=== PATIENT | female | born 1980 | race Caucasian/White ===

== ENCOUNTER 2016-10-25 15:51 | Inpatient (IN) | payer SELFPAY ==
[2016-10-25] MEDS ORDERED: ALPRAZolam 0.5 MG TAB PO ONE (16:54)
--- NOTE | 2016-10-25 16:56 | EDPHY ---
H & P Time Seen by Provider: 10/25/16 16:40 HPI/ROS: HPI: 36-year-old female presents to emergency department voluntarily with chief concern anxiety, stress because her mother called the police department on her. She had not seen her daughter in 4 days. She has her mother to watch her daughter for the past 4 days because she was going through a "spiritual awakening" and she was needing to "clear negative energy from her home." Mother was concerned about her because her house is in a state of disrepair and she has not slept or eaten much for the past 4 days. Her past medical history is notable for ADD only. She denies suicidal homicidal ideation. She denies visual or auditory hallucination. She denies illicit drug or alcohol abuse. No fever, chills, head injury, URI symptoms, shortness of breath, chest pain, abdominal pain, nausea, vomiting, diarrhea. ROS:10 point review of systems is negative other than as stated in HPI Past Medical/Surgical History: ADD Social History: Lives in [place] with her daughter Smoking Status: Current every day smoker Physical Exam: Vital signs stable, reviewed by me General: Awake, alert, calm, cooperative. No acute distress. Head: Normalocephalic. Atraumatic. EENT: PERRLA. EOMI. No pallor or injection. Anicteric. No nystagmus. No injection. TMs intact bilaterally with normal landmarks. No rhinnorhea, nasal passages clear. Oropharynx without redness, exudates, or lesions. Tonsils 2+ bilaterally, no exudates. Neck: Supple, nontender. No lymphadenopathy. Full range of motion. No meningismus. Respiratory: Breathing unlabored. Breath sounds equal bilaterally and clear to auscultation. No adventitious sounds. CV: Chest nontender, atraumatic. Heart rate regular. No murmur, distal pulses 2+ bilaterally. Brisk cap refill all extremities. GI: Abdomen soft, nontender. Bowel sounds normoactive and positive x4 quadrants. : No CVA or flank tenderness. Neuro: Alert. Oriented x 3. Speech clear. Nonfocal cranial nerves throughout. Sensation intact all extremities. Skin: Skin warm, dry, intact. No rashes, abrasions, or lacerations. Skin turgor normal. Extremities: Full range of motion in all 4 extremities. Strength 5+ all extremities. Constitutional: Initial Vital Signs Temperature (C) 36.4 C 10/25/16 15:56 Heart Rate 95 10/25/16 15:56 Respiratory Rate 18 10/25/16 15:56 Blood Pressure 103/75 10/25/16 15:56 O2 Sat (%) 97 10/25/16 15:56 O2 Delivery Mode Room Air Allergies/Adverse Reactions: No Known Allergies Allergy (Verified 10/25/16 15:55) Home Medications: Medication Instructions Recorded Adderall 10 mg Tablet 11/28/15 Medical Decision Making ED Course/Re-evaluation: 1630:36-year-old female brought in voluntarily by PD with chief concern anxiety , stress. Her mother believe she is delusional. She has been unable to take care of her daughter over the past 4 days. She is not a danger to herself or others. She has no visual or auditory hallucinations. She denies abusing drugs or alcohol. I have bargained with she and her mother that if she will leave the emergency department and follow up directly at [facility] , as well as a follow up with primary care tomorrow, she will be discharged. She agrees to this plan. 1710: Adeola from EPS in to evaluate patient and ultimately she is placed on M1 hold at 5:23 p.m.. Her behavior has escalated. She is given 10 mg IM a Zyprexa and 5 mg p.o. Haldol. 1810: Medically cleared. Drug tox positive for cocaine. 1848: Care of this patient transferred to my colleague Dr. Alfred Patterson. Patient has been medically cleared. She has a bed on [address] [place] [address]. Awaiting transfer. Differential Diagnosis: Differential includes but is not limited to functional and major depression, situational depression, medication side-effect, anxiety, schizophrenia, bipolar , drug or alcohol related, acute psychosis, metabolic derangement, infection - Data Points Laboratory Results: Laboratory Results 10/25/16 17:27 10/25/16 17:27 10/25/16 10/25/16 10/25/16 17:27 17:27 17:27 WBC RBC Hgb Hct MCV MCH MCHC RDW Plt Count MPV Neut % (Auto) Lymph % (Auto) [place] % (Auto) Eos % (Auto) Baso % (Auto) Nucleat RBC Rel Count Absolute Neuts (auto) Absolute Lymphs (auto) Absolute Monos (auto) Absolute Eos (auto) Absolute Basos (auto) Absolute Nucleated RBC Immature Gran % Immature Gran # Sodium 141 mEq/L mEq/L (134-144) Potassium 3.6 mEq/L mEq/L (3.5-5.2) Chloride 105 mEq/L mEq/L (97-110) Carbon Dioxide 25 mEq/l mEq/l (22-31) Anion Gap 11 mEq/L mEq/L (8-16) BUN 11 mg/dL mg/dL (7-23) Creatinine 0.7 mg/dL mg/dL (0.6-1.0) Estimated GFR > 60 Glucose 89 mg/dL mg/dL (70-100) Calcium 9.8 mg/dL mg/dL (8.5-10.4) Beta HCG, Qual NEGATIVE Urine Opiates Screen NEGATIVE (NEGATIVE) Urine Barbiturates NEGATIVE (NEGATIVE) Ur Phencyclidine Scrn NEGATIVE (NEGATIVE) Ur Amphetamine Screen NEGATIVE (NEGATIVE) U Benzodiazepines Scrn NEGATIVE (NEGATIVE) Urine Cocaine Screen NON-NEGATIVE H (NEGATIVE) U Marijuana (THC) Screen NEGATIVE (NEGATIVE) Ethyl Alcohol < 10 mg/dL mg/dL (0-10) 10/25/16 17:27 WBC 13.73 10^3/uL H 10^3/uL (3.80-9.50) RBC 4.79 10^6/uL 10^6/uL (4.18-5.33) Hgb 15.1 g/dL g/dL (12.6-16.3) Hct 44.2 % % (38.0-47.0) MCV 92.3 fL fL (81.5-99.8) MCH 31.5 pg pg (27.9-34.1) MCHC 34.2 g/dL g/dL (32.4-36.7) RDW 12.5 % % (11.5-15.2) Plt Count 351 10^3/uL 10^3/uL (150-400) MPV 9.7 fL fL (8.7-11.7) Neut % (Auto) 64.7 % % (39.3-74.2) Lymph % (Auto) 27.2 % % (15.0-45.0) [place] % (Auto) 5.8 % % (4.5-13.0) Eos % (Auto) 1.2 % % (0.6-7.6) Baso % (Auto) 0.6 % % (0.3-1.7) Nucleat RBC Rel Count 0.0 % % (0.0-0.2) Absolute Neuts (auto) 8.89 10^3/uL H 10^3/uL (1.70-6.50) Absolute Lymphs (auto) 3.73 10^3/uL H 10^3/uL (1.00-3.00) Absolute Monos (auto) 0.80 10^3/uL 10^3/uL (0.30-0.80) Absolute Eos (auto) 0.16 10^3/uL 10^3/uL (0.03-0.40) Absolute Basos (auto) 0.08 10^3/uL 10^3/uL (0.02-0.10) Absolute Nucleated RBC 0.00 10^3/uL 10^3/uL (0-0.01) Immature Gran % 0.5 % % (0.0-1.1) Immature Gran # 0.07 10^3/uL 10^3/uL (0.00-0.10) Sodium Potassium Chloride Carbon Dioxide Anion Gap BUN Creatinine Estimated GFR Glucose Calcium Beta HCG, Qual Urine Opiates Screen Urine Barbiturates Ur Phencyclidine Scrn Ur Amphetamine Screen U Benzodiazepines Scrn Urine Cocaine Screen U Marijuana (THC) Screen Ethyl Alcohol Medications Given: Discontinued Medications Alprazolam (Xanax) 0.5 mg PO EDNOW ONE Stop: 10/25/16 16:55 Last Admin: 10/25/16 17:13 Dose: Not Given Alprazolam (Xanax) 1 mg PO EDNOW ONE Stop: 10/25/16 17:15 Last Admin: 10/25/16 17:14 Dose: Not Given Nicotine Polacrilex (Nicorette) 2 mg B EDNOW ONE Stop: 10/25/16 18:25 Last Admin: 10/25/16 18:28 Dose: 2 mg Olanzapine (Zyprexa Im Injection) 10 mg IM EDNOW ONE Stop: 10/25/16 17:23 Last Admin: 10/25/16 17:50 Dose: Not Given Olanzapine (Zyprexa Zydis) 10 mg PO EDNOW ONE Stop: 10/25/16 17:50 Last Admin: 10/25/16 17:50 Dose: 10 mg Departure - Departure Disposition: Home, Routine, Self-Care Clinical Impression: Psychosis Condition: Good Additional Instructions: Plan: You need to be seen by her primary care provider at [place] tomorrow for recheck without fail--When you call to schedule appointment, please let the office know you are an "ER follow up" appointment" When you leave the emergency department you need to go directly to [facility] for evaluation Return to emergency department if he developed the thoughts of hurting herself, hurting other people, hearing voices, or hallucinating Referrals: SIMBA MCKEON [Other] - As per Instructions
[2016-10-25] MEDS ORDERED: ALPRAZolam 1 MG TAB ONE (17:03)
[2016-10-25] MEDS ORDERED: ALPRAZolam 1 MG TAB PO ONE (17:14)
[2016-10-25] MEDS ORDERED: OLANZapine 10 MG/2 ML VIAL IM ONE (17:22)
[2016-10-25] MEDS ORDERED: OLANZapine DISINTEGR 10 MG TAB ONE (17:44)
[2016-10-25 17:46] LABS: % IMMATURE GRANULYOCYTES 0.5 % (0.0-1.1); ABSOLUTE IMMATURE GRANULOCYTES 0.07 10^3/uL (0.00-0.10); ADD DIFF? NO; ADD MORPH? NO; ADD SCAN? NO; ATYPICAL LYMPHOCYTE FLAG 10 (0-99); FRAGMENT RBC FLAG 0 (0-99); HEMATOCRIT 44.2 % (38.0-47.0); HEMOGLOBIN 15.1 g/dL (12.6-16.3); LEFT SHIFT FLG 0 (0-99); LIPEMIA HEMOLYSIS FLAG 90 (0-99); MEAN CELL HEMOGLOBIN 31.5 pg (27.9-34.1); MEAN CELL HEMOGLOBIN CONCENTR. 34.2 g/dL (32.4-36.7); MEAN CELL VOLUME 92.3 fL (81.5-99.8); MEAN PLATELET VOLUME 9.7 fL (8.7-11.7); PLATELET CLUMPS FLAG 0 (0-99); PLATELET COUNT 351 10^3/uL (150-400); RED BLOOD CELL COUNT 4.79 10^6/uL (4.18-5.33); RED CELL DISTRIBUTION WIDTH 12.5 % (11.5-15.2)
[2016-10-25] MEDS ORDERED: OLANZapine DISINTEGR 10 MG TAB PO ONE (17:49)
[2016-10-25 18:05] LABS: ANION GAP 11 mEq/L (8-16); CALCIUM 9.8 mg/dL (8.5-10.4); CARBON DIOXIDE 25 mEq/l (22-31); CHLORIDE 105 mEq/L (97-110); CREATININE 0.7 mg/dL (0.6-1.0); ETHANOL SERUM < 10 mg/dL (0-10); GLOMERULAR FILTRATION RATE > 60; GLUCOSE 89 mg/dL (70-100); POTASSIUM 3.6 mEq/L (3.5-5.2); SODIUM 141 mEq/L (134-144)
[2016-10-25] MEDS ORDERED: NICOTINE POLACRILEX 2 MG GUM B ONE (18:24)
[2016-10-25] MEDS ORDERED: MAG HYDROX/AL HYDROX/SIMETH 30 ML UDCUP PO PRN (23:14)
[2016-10-25] MEDS ORDERED: OLANZapine 5 MG TAB PO PRN (23:15)
[2016-10-25] MEDS: LORazepam 0.5 MG TAB PO PRN (23:40)
[2016-10-26] MEDS: NICOTINE POLACRILEX 2 MG GUM B PRN ×2 (15:42→20:04)
--- NOTE | 2016-10-26 16:05 | BCON ---
[f rep st] BEHAVIORAL HEALTH CONSULTATION INTERNAL MEDICINE CONSULTATION DATE OF CONSULTATION: 10/26/2016 REFERRING PHYSICIAN: Larissa Morse MD REASON FOR REFERRAL: Medical clearance for inpatient behavioral health stay. HISTORY OF PRESENT ILLNESS: The patient was brought into the [facility] Emergency Department, psychotic, accompanied by her mother. She had been out of touch for 4 days and not taking care of her 11-year-old daughter. She was evaluated by the mental health team and admitted for further psychiatric care. She is currently without any acute medical complaints. PAST MEDICAL HISTORY: She denies any history of medical illnesses. She has a history of psychiatric issues dating to childhood or adolescence with possible diagnoses of bipolar disorder and depression as well as ADD. PAST SURGICAL HISTORY: She had a section for her daughter. MEDICATIONS: Prior to admission she was prescribed Adderall. SOCIAL HISTORY: She is a smoker. She is and lives with her 11-year- old daughter. 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 She has a history of methamphetamine and cocaine abuse and her urinary toxicology screen was positive for cocaine. FAMILY HISTORY: Noncontributory. REVIEW OF SYSTEMS: She reports some irritation to her eyes. She has contact lenses and would like to have some contact lens solution. She brought some with her and wants access to it. She reports that she has had involuntary weight loss over several months. Otherwise, a 10-point review of systems is negative. She denies any gastrointestinal complaints, including no loss of appetite, no nausea, vomiting, constipation, or diarrhea. PHYSICAL EXAM: VITAL SIGNS: Blood pressure is 107/59, heart rate is 80, respiratory rate is 16, oxygen saturation is 97% on room air, temperature is 36.5 degrees centigrade. Her weight is 54.4 kg for a body mass index of 21.9. When she was seen in the emergency department in November of last year, her weight was 61.2 kg, so that would be an almost 7 kg or a 15-pound weight loss. Body mass index at that time was 24.7. GENERAL: This is a well-nourished, well- developed woman lying in bed and sits up for the examiner, dressed in street clothes, cooperative, and in no acute distress. HEENT: Extraocular movements are intact. Pupils are equal, round, and reactive to light. Mucous membranes are moist. Dentition is in good condition. Airways is uncrowded, Mallampati class I. There are no oropharyngeal mucosal lesions noted. NECK: Supple. HEART: There is a regular rate and rhythm with no murmurs, rubs, or gallops. LUNGS: Clear to auscultation bilaterally. ABDOMEN: Soft, nontender, nondistended with normoactive bowel sounds. EXTREMITIES: There is no cyanosis , clubbing, or edema. NEUROLOGIC: She is alert. Orientation was not checked. Cranial nerves 2-12 are grossly intact. There is no focal weakness and sensation is intact to light touch. LABORATORY STUDIES: Drawn in the emergency department: CBC revealed an elevated white blood cell count at 13.73 with no left shift. Otherwise CBC was within normal limits. Serum chemistry revealed normal renal function and electrolytes. Beta HCG was negative for . Toxicology screen in the serum was negative for ethyl alcohol, and the urine was non-negative for cocaine. Otherwise urine toxicology screen was negative for substances of abuse. ASSESSMENT/RECOMMENDATIONS: 1. Mental health issues. Pending further evaluation and management per Psychiatry and the mental health team. 2. Tobacco dependence syndrome. She was encouraged to stop smoking. 3. Cocaine abuse. She might benefit from specific substance abuse counseling. 4. Weight loss. Query whether this is due to mental health issues versus stimulant abuse. I will add a TSH to her labs to rule out hyperthyroidism as an etiology. I see no medical contraindications to Ms. Walter's continued stay in the inpatient behavioral health unit or to any psychiatric medications or procedures. Thank you very much for including me in the care of this patient and please do not hesitate to contact me or the hospitalist service should there be need for further medical evaluation. /[id number]/MODL MTDD
[2016-10-26] MEDS: LORazepam 0.5 MG TAB PO PRN (20:02)
--- NOTE | 2016-10-26 23:16 | BAPA ---
[f rep st] ADMISSION PSYCHIATRIC ASSESSMENT CHIEF COMPLAINT: "I think I had a little breakdown." HISTORY OF PRESENT ILLNESS: The patient is a 36-year-old, female, with a history of ADHD, and had a listed a diagnosis of bipolar disorder, who has otherwise lacked followup in her adult li fe for treatment of any active psychiatric condition other than the ADHD. She presented to the ER ye sterday of her own accord after having had a very difficult 4 or 5 days. She states that she became excessively concerned about a relationship with a person who she states she is in love with, but sh e is unclear about their overall relationship. This person is not someone she has actually ever iris ed or possibly even directly communicated with. She states that she got at friend request on Facebo ok from a person she did not know, but that she assumed was the person who she has romantic feelings about, who is contacting her in disguise in order to test her fidelity. She states that she believ es that he was pretending to be someone else in order to see if she would agree to date that person, to see if she really liked him instead, or whether she would be faithful. She states that this linden t on for several days and consumed her attention. She states that she began to read coded signals w ithin these messages and felt that the person was trying to convince her to create mixed tapes. She states she stayed up all night for 2 days making several mixed tapes and then posted those, but jarred t she did not get the feedback she wanted. She then further interpreted this to believe that this w as part of the test as well. Along the way, she states that she began to become paranoid, believing that maybe the person was out to harm her. She then believed that she was getting a coded message that she should remove all of the green things from her bathroom. She did this and then realized th at she had a negative spiritual entity in the bathroom. She then describes in elaborate detail joséin elizabeth off and barricading the bathroom with scarves and ropes and other things in order to trap this ent ity within the bathroom. She then took all of the green items out of her home and hung them on a tr ee outside. She states that this time she realized that she was not functioning normally, and had h er 10-year-old daughter go and stay with her mother. She spent the next day trying to rid the home of this entity through incantations and use of what she described as "psychic ability." The culmina tion of this was that she felt exhausted, felt out of control and afraid, and decided to come to the hospital for help. Once at the hospital, she did appear to be manic and paranoid, and was actually given some IM Zyprex a due to acute agitation. She slept all night, until 11:30 a.m. this morning, when I was able to in terview her and she was clearly calmer. She states now that "this whole thing seems like a dream." She is still, however, convinced that she had this conversation with the man through a surrogate or him pretending to be someone else, and that there is a negative entity within her home. She states this is not a new experience for her. She believes herself to be clairvoyant and to communicate wi th spirits. She adamantly states that she does not want any further medications, as she believes th at they do not help her due to previous bad experiences as an adolescent. She states she was diagno sed with bipolar disorder in her adolescence, had several medication trials, but could not remember the names of any of the medications. She stated these included mood stabilizers and several antidep ressants. She states she believes she needs to simply rest, and is agreeable to staying in the hosp ital in case her symptoms return and we can monitor and/or treat. PAST PSYCHIATRIC HISTORY: Significant for previous diagnosis of bipolar when she was 15 and ADHD. She states that she has taken Adderall off and on over at least 20 years and that this helps her. S he states without it, "I can't get anything done and I'm a total wreck." She denies having ever ref used the Adderall. States actually during the course of these events she was not taking it. She desouza s no history of psychiatric hospitalizations or suicide attempts. ALLERGIES: No known medical allergies. MEDICATIONS: Adderall 20 mg b.i.d., taken on a p.r.n. basis. PAST MEDICAL HISTORY: Noncontributory, per patient's report. SOCIAL HISTORY: Patient lives with her 10-year-old daughter in a home in [place]. 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 She is quite proud of this, stating that she has cured sever al forms of skin cancer and other dermatologic conditions. Her mother is a support for her and live s in [place]. She denies any other stresses at this time, including financial or legal problems. She states she has a supportive group of friends. There are no current intimate relationships. SUBSTANCE ABUSE HISTORY: Patient admits to regular use of marijuana and states that her symptoms of bipolar disorder in high school were in the presence of heavy marijuana use. She states she does n ot currently use marijuana. She states she does drink 2 or 3 times per month, occasionally to the p oint of intoxication. She denies any other drug use. She does smoke tobacco. FAMILY HISTORY: Noncontributory, per patient's report. ADMISSION LABORATORY: CBC shows a white count of 13.73 with no increase in neutrophil percentage. Serum chemistries are normal. TSH is low at 0.299. Beta hCG is negative. Urine drug screen is pos itive for cocaine. MENTAL STATUS EXAMINATION: A somewhat disheveled, though otherwise healthy-appearing leesa lindsay. She is pleasant and interactive and is very forthcoming of information. Her speech is somewhat voluminous, slightly pressured, fluent and appropriate. Her affect is euthymic, stable and appropr iate. Her mood is described as "kind of messed up." Her thought process is linear and goal directe d. Her thought content reveals continued ideas of reference in the case of this person on Facebook, though no other overt psychotic symptoms. She is alert and oriented to person, place, time, and si tuation. Her sensorium is clear. Her attention and concentration are adequate, and there is no oseas dence of delirium or intoxication. Her intellect appears to be at least average as evidenced by her fund of knowledge, educational history and vocabulary. She denies any thoughts of suicide, homicid e, or violence. Her judgment appeared to be fair. IMPRESSION: Psychotic disorder, not otherwise specified. Possible acute perfecto with psychosis, reso lving. Single parent. Attention deficit hyperactivity disorder by history. The patient is a pleasant 36-year-old, female, with a history of an adolescent diagnosis o f bipolar disorder and attention deficit hyperactivity disorder. She presented in what appeared to be a manic and psychotic state yesterday, though with administration of 10 mg of Zyprexa IM, this desouza s seemed to essentially resolved. It was likely the product of this immersion into this odd relatio nship online that included an expansion into ideas of reference in the setting of protracted insomni a. She currently appears to be doing much, though we will need to monitor. PLAN: 1. We will admit to behavioral health services inpatient unit on an M1 hold. 2. We will use Zyprexa p.r.n. should her symptoms return. 3. We will engage in individual, group, and milieu psychotherapies and serial clinical interviews t o better understand her current state. 4. We will work with patient on evaluating some precipitating factors and possible outpatient follo wup on time of discharge. ESTIMATED LENGTH OF STAY: 2-3 days. /[id number]/MODL
[2016-10-27] MEDS: LORazepam 0.5 MG TAB PO PRN ×2 (12:07→20:40)
[2016-10-27] MEDS: NICOTINE POLACRILEX 2 MG GUM B PRN ×4 (12:08→23:35)
--- NOTE | 2016-10-27 12:35 | SOAPPROG ---
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 Bipolar Disorder and has long-term h/o affective instability, ADHA, ? cocaine abuse. Acutely disorganized and agitated in the Ed, received Zyprexa 10 mg IM and slept with improved mental status upon awakening prior to M! admission to 3[facility] yesterday. Dr Su's admission exam report mild POS, over-talkativeness, IOR circumscribed; pt p/o prn Zyprexa only, slept overnight, in behaviorally control and compliant with cares. ON EXAM: presents as slightly pressured but conversant and cooperative; reports falling "in love" recently with long-standing male friend and wanting to connect with him in recent days with her 4 yo daughter out of house and in the care of her mother. However she experienced "negative energy" and the presence of interfering "demons" in the house and with friend's help applied rituals to rid the house of these elements. Mother found her in a disorganized state and brought her to the ED where the acute psychosis was affirmed; TS + for cocaine in the ED. Pt denies using cocaine and said she does drink tea "with coca leaves ". Pt remains cooperative with extending inpt stay to complete work-up and ensure MS stabilization. will let us call [facility] but not [facility] for collateral intake. ASSESSMENT/PLAN: remains with lessening psychosis amd mild affective instability / no change in meds or management plan; expedite intake including call to pt's father; CP d/w Nursing with emphasis on monitoring MS Objective: Vital Signs Temp Pulse Resp BP Pulse Ox 36.6 C 76 16 95/53 L 100 10/27/16 06:00 10/27/16 06:00 10/27/16 06:00 10/27/16 06:00 10/27/16 06:00 ICD10 Worksheet Patient Problems: Problems Problem Status Onset Psychosis Acute
[2016-10-27] MEDS: NICOTINE 14 MG/24 HR PATCH TD SCH (20:29)
[2016-10-27] MEDS: PATCH REMOVAL 1 EA PATCH TD SCH (20:30)
--- NOTE | 2016-10-28 07:09 | SOAPPROG ---
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 Bipolar Disorder and has long-term h/o affective instability, ADHD, ? cocaine abuse. Acutely disorganized and agitated in the ED, received Zyprexa 10 mg IM and slept with improved mental status upon awakening prior to M1 admission to yesterday. Dr Su's admission exam reports mild POS, over-talkativeness, IOR circumscribed; pt p/o prn Zyprexa only, slept overnight, in behavioral control and compliant with cares. ON EXAM: presents as slightly pressured but conversant and cooperative; reports falling "in love" recently with long-standing male friend and wanting to connect with him in recent days with her 4 yo daughter out of house and in the care of her mother. However she experienced "negative energy" and the presence of interfering "demons" in the house and with friend's help applied rituals to rid the house of these elements. Mother found her in a disorganized state and brought her to the ED where the acute psychosis was affirmed; TS + for cocaine in the ED. Pt denies using cocaine and said she does drink tea "with coca leaves ". Pt remains cooperative with extending inpt stay to complete work-up and ensure MS stabilization. Will let us call [facility] but not [facility] for collateral intake. ASSESSMENT/PLAN: remains with lessening psychosis amd mild affective instability / no change in meds or management plan; expedite intake including call to pt's father; CP d/w Nursing with emphasis on monitoring MS 10/28/16 DAY UPDATE: Objective: Vital Signs Temp Pulse Resp BP Pulse Ox 36.9 C 90 14 120/70 97 10/28/16 06:00 10/28/16 06:00 10/28/16 06:00 10/28/16 06:00 10/28/16 06:00 ICD10 Worksheet Patient Problems: Problems Problem Status Onset Psychosis Acute
[2016-10-28] MEDS: NICOTINE 14 MG/24 HR PATCH TD SCH (08:55)
[2016-10-28] MEDS: LORazepam 0.5 MG TAB PO PRN ×2 (08:56→20:18)
--- NOTE | 2016-10-28 11:41 | SOAPPROG ---
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 Bipolar Disorder and has long-term h/o affective instability, ADHD, ? cocaine abuse. Acutely disorganized and agitated in the ED, received Zyprexa 10 mg IM and slept with improved mental status upon awakening prior to M1 admission to yesterday. Dr Su's admission exam reports mild POS, over-talkativeness, IOR circumscribed; pt p/o prn Zyprexa only, slept overnight, in behavioral control and compliant with cares. ON EXAM: presents as slightly pressured but conversant and cooperative; reports falling "in love" recently with long-standing male friend and wanting to connect with him in recent days with her 4 yo daughter out of house and in the care of her mother. However she experienced "negative energy" and the presence of interfering "demons" in the house and with friend's help applied rituals to rid the house of these elements. Mother found her in a disorganized state and brought her to the ED where the acute psychosis was affirmed; TS + for cocaine in the ED. Pt denies using cocaine and said she does drink tea "with coca leaves ". Pt remains cooperative with extending inpt stay to complete work-up and ensure MS stabilization. Will let us call [facility] but not [facility] for collateral intake. ASSESSMENT/PLAN: remains with lessening psychosis amd mild affective instability / no change in meds or management plan; expedite intake including call to pt's father; CP d/w Nursing with emphasis on monitoring MS 10/28/16 11:27 DAY UPDATE: Nuring report states pt's evidencing affective lability to more pronounced degree during second shift yesterday, ? overt psychosis; did remain in behavioral control; anger with mother apparently thematic in disclosures to staff; intake from [facility] suggests chronically depressed self-image, affective instabilit by hx, serious substance problems with h/o rehab rx pat age 23, authentic workup and dx'd ADD responsive to Adderal; he confirmed pt untreated for some time byt may have been cibtiuing of Adderall thru to present. ON EXAM: presents as mildly anxious, tangential, no overt psychosis today but ? persistence of IOR; agreed to trial of Abilify with low-dose start at 2 mg bid; pt has not used prn Zyprexa since admission; pt wants to resume Adderall and I told her we need to reaffirm recent use and who prescriber is - allegedly physician in [place] system; she also understands her need for psychiatric followup and states she can't afford to reume her [place] coverage. ASSESSMENT/PLAN: residual lability and circumscribed PI in form of IOR/ begin Abilify 2mg bid; discuss case with Dr. Su at his return tomorrow to attending role; attempt intake from [place] tomorrow Objective: Vital Signs Temp Pulse Resp BP Pulse Ox 36.9 C 90 14 120/70 97 10/28/16 06:00 10/28/16 06:00 10/28/16 06:00 10/28/16 06:00 10/28/16 06:00 ICD10 Worksheet Patient Problems: Problems Problem Status Onset Psychosis Acute
[2016-10-28] MEDS ORDERED: ARIPiprazole 2 MG TAB PO SCH ×2 (12:00→21:00)
[2016-10-28] MEDS: ARIPiprazole 2 MG TAB PO SCH ×2 (12:45→20:01)
[2016-10-28] MEDS: NICOTINE POLACRILEX 2 MG GUM B PRN ×4 (18:38→22:40)
[2016-10-28] MEDS: PATCH REMOVAL 1 EA PATCH TD SCH (20:06)
[2016-10-28] MEDS ORDERED: BENZTROPINE MESYLATE 1 MG TAB PO ONE (22:30)
[2016-10-29] MEDS: LORazepam 0.5 MG TAB PO PRN ×3 (00:10→20:29)
--- NOTE | 2016-10-29 07:46 | SOAPPROG ---
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 Bipolar Disorder and has long-term h/o affective instability, ADHD, ? cocaine abuse. Acutely disorganized and agitated in the ED, received Zyprexa 10 mg IM and slept with improved mental status upon awakening prior to M1 admission to yesterday. Dr Su's admission exam reports mild POS, over-talkativeness, IOR circumscribed; pt p/o prn Zyprexa only, slept overnight, in behavioral control and compliant with cares. ON EXAM: presents as slightly pressured but conversant and cooperative; reports falling "in love" recently with long-standing male friend and wanting to connect with him in recent days with her 4 yo daughter out of house and in the care of her mother. However she experienced "negative energy" and the presence of interfering "demons" in the house and with friend's help applied rituals to rid the house of these elements. Mother found her in a disorganized state and brought her to the ED where the acute psychosis was affirmed; TS + for cocaine in the ED. Pt denies using cocaine and said she does drink tea "with coca leaves ". Pt remains cooperative with extending inpt stay to complete work-up and ensure MS stabilization. Will let us call [facility] but not [facility] for collateral intake. ASSESSMENT/PLAN: remains with lessening psychosis amd mild affective instability / no change in meds or management plan; expedite intake including call to pt's father; CP d/w Nursing with emphasis on monitoring MS 10/28/16 11:27 DAY UPDATE: Nuring report states pt's evidencing affective lability to more pronounced degree during second shift yesterday, ? overt psychosis; did remain in behavioral control; anger with mother apparently thematic in disclosures to staff; intake from [facility] suggests chronically depressed self-image, affective instability by hx, serious substance problems with h/o rehab rx pat age 23, authentic workup and dx'd ADD responsive to Adderall; he confirmed pt untreated for some time but may have been continuing of Adderall thru to present. ON EXAM: presents as mildly anxious, tangential, no overt psychosis today but ? persistence of IOR; agreed to trial of Abilify with low-dose start at 2 mg bid; pt has not used prn Zyprexa since admission; pt wants to resume Adderall and I told her we need to reaffirm recent use and who prescriber is - allegedly physician in [place] system; she also understands her need for psychiatric followup and states she can't afford to reume her [place] coverage. ASSESSMENT/PLAN: residual lability and circumscribed PI in form of IOR/ begin Abilify 2mg bid; discuss case with Dr. Su at his return tomorrow to attending role; attempt intake from [place] tomorrow 10/29/16 07:38 Objective: Vital Signs Temp Pulse Resp BP Pulse Ox 36.9 C 57 L 16 117/79 95 10/29/16 06:00 10/29/16 06:00 10/29/16 06:00 10/29/16 06:00 10/29/16 06:00 ICD10 Worksheet Patient Problems: Problems Problem Status Onset Psychosis Acute
[2016-10-29] MEDS: ARIPiprazole 2 MG TAB PO SCH ×2 (10:56→20:29)
[2016-10-29] MEDS: NICOTINE 14 MG/24 HR PATCH TD SCH (10:56)
[2016-10-29] MEDS: NICOTINE POLACRILEX 2 MG GUM B PRN (13:49)
--- NOTE | 2016-10-29 15:45 | SOAPPROG ---
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 Bipolar Disorder and has long-term h/o affective instability, ADHD, ? cocaine abuse. Acutely disorganized and agitated in the ED, received Zyprexa 10 mg IM and slept with improved mental status upon awakening prior to M1 admission to yesterday. Dr Su's admission exam reports mild POS, over-talkativeness, IOR circumscribed; pt p/o prn Zyprexa only, slept overnight, in behavioral control and compliant with cares. ON EXAM: presents as slightly pressured but conversant and cooperative; reports falling "in love" recently with long-standing male friend and wanting to connect with him in recent days with her 4 yo daughter out of house and in the care of her mother. However she experienced "negative energy" and the presence of interfering "demons" in the house and with friend's help applied rituals to rid the house of these elements. Mother found her in a disorganized state and brought her to the ED where the acute psychosis was affirmed; TS + for cocaine in the ED. Pt denies using cocaine and said she does drink tea "with coca leaves ". Pt remains cooperative with extending inpt stay to complete work-up and ensure MS stabilization. Will let us call [facility] but not [facility] for collateral intake. ASSESSMENT/PLAN: remains with lessening psychosis amd mild affective instability / no change in meds or management plan; expedite intake including call to pt's father; CP d/w Nursing with emphasis on monitoring MS 10/28/16 11:27 DAY UPDATE: Nuring report states pt's evidencing affective lability to more pronounced degree during second shift yesterday, ? overt psychosis; did remain in behavioral control; anger with mother apparently thematic in disclosures to staff; intake from [facility] suggests chronically depressed self-image, affective instability by hx, serious substance problems with h/o rehab rx pat age 23, authentic workup and dx'd ADD responsive to Adderall; he confirmed pt untreated for some time but may have been continuing of Adderall thru to present. ON EXAM: presents as mildly anxious, tangential, no overt psychosis today but ? persistence of IOR; agreed to trial of Abilify with low-dose start at 2 mg bid; pt has not used prn Zyprexa since admission; pt wants to resume Adderall and I told her we need to reaffirm recent use and who prescriber is - allegedly physician in [place] system; she also understands her need for psychiatric followup and states she can't afford to reume her [place] coverage. ASSESSMENT/PLAN: residual lability and circumscribed PI in form of IOR/ begin Abilify 2mg bid; discuss case with Dr. Su at his return tomorrow to attending role; attempt intake from [place] tomorrow 10/29/16 15:38 DY ' U[DATE/EXAM: Nursing reports pt maintaining behavioral control, c/w cares and meds; relatively isolated but is selectively social and attending some groups/ on exam there is no evidence of psychosis and pt denies thought of demons or negative energy; does also report effective contacts with her mother by phone; feels s ome urgency to resume her Adderall prescribed by former [place] psychiatrist which she again states she was taking until few days before this admission - thinks her dysphoric mood is a function of not taking it; is willing daniel ontinue the trial of Abilify. ASSESSMENT/PLAN: not evidencing psychosis by exam today, residual but less lability/ will try to confirm use of Adderall and consider speaker phone family conference with mother tomorrow Objective: Vital Signs Temp Pulse Resp BP Pulse Ox 36.9 C 57 L 16 117/79 95 10/29/16 06:00 10/29/16 06:00 10/29/16 06:00 10/29/16 06:00 10/29/16 06:00 ICD10 Worksheet Patient Problems: Problems Problem Status Onset Psychosis Acute
--- NOTE | 2016-10-30 06:41 | SOAPPROG ---
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 Bipolar Disorder and has long-term h/o affective instability, ADHD, ? cocaine abuse. Acutely disorganized and agitated in the ED, received Zyprexa 10 mg IM and slept with improved mental status upon awakening prior to M1 admission to yesterday. Dr Su's admission exam reports mild POS, over-talkativeness, IOR circumscribed; pt p/o prn Zyprexa only, slept overnight, in behavioral control and compliant with cares. ON EXAM: presents as slightly pressured but conversant and cooperative; reports falling "in love" recently with long-standing male friend and wanting to connect with him in recent days with her 4 yo daughter out of house and in the care of her mother. However she experienced "negative energy" and the presence of interfering "demons" in the house and with friend's help applied rituals to rid the house of these elements. Mother found her in a disorganized state and brought her to the ED where the acute psychosis was affirmed; TS + for cocaine in the ED. Pt denies using cocaine and said she does drink tea "with coca leaves ". Pt remains cooperative with extending inpt stay to complete work-up and ensure MS stabilization. Will let us call [facility] but not [facility] for collateral intake. ASSESSMENT/PLAN: remains with lessening psychosis amd mild affective instability / no change in meds or management plan; expedite intake including call to pt's father; CP d/w Nursing with emphasis on monitoring MS 10/28/16 11:27 DAY UPDATE: Nuring report states pt's evidencing affective lability to more pronounced degree during second shift yesterday, ? overt psychosis; did remain in behavioral control; anger with mother apparently thematic in disclosures to staff; intake from [facility] suggests chronically depressed self-image, affective instability by hx, serious substance problems with h/o rehab rx pat age 23, authentic workup and dx'd ADD responsive to Adderall; he confirmed pt untreated for some time but may have been continuing of Adderall thru to present. ON EXAM: presents as mildly anxious, tangential, no overt psychosis today but ? persistence of IOR; agreed to trial of Abilify with low-dose start at 2 mg bid; pt has not used prn Zyprexa since admission; pt wants to resume Adderall and I told her we need to reaffirm recent use and who prescriber is - allegedly physician in [place] system; she also understands her need for psychiatric followup and states she can't afford to reume her [place] coverage. ASSESSMENT/PLAN: residual lability and circumscribed PI in form of IOR/ begin Abilify 2mg bid; discuss case with Dr. Su at his return tomorrow to attending role; attempt intake from [place] tomorrow 10/29/16 15:38 DY ' U[DATE/EXAM: Nursing reports pt maintaining behavioral control, c/w cares and meds; relatively isolated but is selectively social and attending some groups/ on exam there is no evidence of psychosis and pt denies thought of demons or negative energy; does also report effective contacts with her mother by phone; feels some urgency to resume her Adderall prescribed by former [place] psychiatrist which she again states she was taking until few days before this admission - thinks her dysphoric mood is a function of not taking it; is willing to continue the trial of Abilify. ASSESSMENT/PLAN: not evidencing psychosis by exam today, residual but less lability/ will try to confirm use of Adderall and consider speaker phone family conference with mother tomorrow 10/30/16 DAY UPDATE/EXAM: Objective: Vital Signs Temp Pulse Resp BP Pulse Ox 36.6 C 84 16 111/71 95 10/30/16 06:00 10/30/16 06:00 10/30/16 06:00 10/30/16 06:00 10/30/16 06:00 ICD10 Worksheet Patient Problems: Problems Problem Status Onset Psychosis Acute
[2016-10-30] MEDS: ARIPiprazole 2 MG TAB PO SCH ×2 (09:41→20:27)
[2016-10-30] MEDS: NICOTINE 14 MG/24 HR PATCH TD SCH (10:51)
[2016-10-30] MEDS: LORazepam 0.5 MG TAB PO PRN ×2 (12:23→17:52)
[2016-10-30] MEDS: NICOTINE POLACRILEX 2 MG GUM B PRN ×2 (15:25→21:52)
--- NOTE | 2016-10-30 17:26 | SOAPPROG ---
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 Bipolar Disorder and has long-term h/o affective instability, ADHD, ? cocaine abuse. Acutely disorganized and agitated in the ED, received Zyprexa 10 mg IM and slept with improved mental status upon awakening prior to M1 admission to yesterday. Dr Su's admission exam reports mild POS, over-talkativeness, IOR circumscribed; pt p/o prn Zyprexa only, slept overnight, in behavioral control and compliant with cares. ON EXAM: presents as slightly pressured but conversant and cooperative; reports falling "in love" recently with long-standing male friend and wanting to connect with him in recent days with her 4 yo daughter out of house and in the care of her mother. However she experienced "negative energy" and the presence of interfering "demons" in the house and with friend's help applied rituals to rid the house of these elements. Mother found her in a disorganized state and brought her to the ED where the acute psychosis was affirmed; TS + for cocaine in the ED. Pt denies using cocaine and said she does drink tea "with coca leaves ". Pt remains cooperative with extending inpt stay to complete work-up and ensure MS stabilization. Will let us call [facility] but not [facility] for collateral intake. ASSESSMENT/PLAN: remains with lessening psychosis amd mild affective instability / no change in meds or management plan; expedite intake including call to pt's father; CP d/w Nursing with emphasis on monitoring MS 10/28/16 11:27 DAY UPDATE: Nuring report states pt's evidencing affective lability to more pronounced degree during second shift yesterday, ? overt psychosis; did remain in behavioral control; anger with mother apparently thematic in disclosures to staff; intake from [facility] suggests chronically depressed self-image, affective instability by hx, serious substance problems with h/o rehab rx pat age 23, authentic workup and dx'd ADD responsive to Adderall; he confirmed pt untreated for some time but may have been continuing of Adderall thru to present. ON EXAM: presents as mildly anxious, tangential, no overt psychosis today but ? persistence of IOR; agreed to trial of Abilify with low-dose start at 2 mg bid; pt has not used prn Zyprexa since admission; pt wants to resume Adderall and I told her we need to reaffirm recent use and who prescriber is - allegedly physician in [place] system; she also understands her need for psychiatric followup and states she can't afford to reume her [place] coverage. ASSESSMENT/PLAN: residual lability and circumscribed PI in form of IOR/ begin Abilify 2mg bid; discuss case with Dr. Su at his return tomorrow to attending role; attempt intake from [place] tomorrow 10/29/16 15:38 DY ' U[DATE/EXAM: Nursing reports pt maintaining behavioral control, c/w cares and meds; relatively isolated but is selectively social and attending some groups/ on exam there is no evidence of psychosis and pt denies thought of demons or negative energy; does also report effective contacts with her mother by phone; feels some urgency to resume her Adderall prescribed by former [place] psychiatrist which she again states she was taking until few days before this admission - thinks her dysphoric mood is a function of not taking it; is willing to continue the trial of Abilify. 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 INTAKE FROM [facility]: s/w FOC and SOC 2 separate calls; they both descirbe the pt as chronically affectively unstable and vulneralbe to episodes of psychotic disorganization as well as intermittently abusive of various drugs including cocaine; parents while has collaborated wiht each other to support the patient life-long emotionally and financially; [facility] moved to [place] several years ago when pt decided to move in order to look adfter her and pt's 11 yo daughter. Pt apparently has lived an idiosnycratic lifestyle with emphasis on following "spiritual" belif systems shared by others in a network of people that do practice rituals and recognize different energy "states". 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 Other dx'd not identified in the [facility] workup; this insurance coverage has been terminated in recent months. ASSESSMENT/PLAN: descriptively improving with resolving psychotic acuity; dx workup incomplete but progressing/ no change in meds or management; will cconsider beginning Adderall 10 mg bid and monitoring MSE; unclear if will continue post DC without assurance of linked definitve DC plan which provides medication management; lyle need EMMA in include mother in workup and rx planning ASSESSMENT/PLAN: improving thought organization since admission; history developing as referenced Objective: Vital Signs Temp Pulse Resp BP Pulse Ox 36.6 C 84 16 111/71 95 10/30/16 06:00 10/30/16 06:00 10/30/16 06:00 10/30/16 06:00 10/30/16 06:00 ICD10 Worksheet Patient Problems: Problems Problem Status Onset Psychosis Acute
--- NOTE | 2016-10-31 08:13 | SOAPPROG ---
SOAP Progress Note Assessment/Plan: Assessment: Plan: 10/27/16 12:19 DAY UPDATE: 36 yo SWF admitted via [facility] ED for c/o acute pychotic decompensation emerging over week [employer]; not a psychiatric outpt or on meds [employer]; had been treated as outpt in [facility] as an adult for ADHD and ? Bipolar Disorder and has long-term h/o affective instability, ADHD, ? cocaine abuse. Acutely disorganized and agitated in the ED, received Zyprexa 10 mg IM and slept with improved mental status upon awakening prior to M1 admission to yesterday. Dr Su's admission exam reports mild POS, over-talkativeness, IOR circumscribed; pt p/o prn Zyprexa only, slept overnight, in behavioral control and compliant with cares. ON EXAM: presents as slightly pressured but conversant and cooperative; reports falling "in love" recently with long-standing male friend and wanting to connect with him in recent days with her 4 yo daughter out of house and in the care of her mother. However she experienced "negative energy" and the presence of interfering "demons" in the house and with friend's help applied rituals to rid the house of these elements. Mother found her in a disorganized state and brought her to the ED where the acute psychosis was affirmed; TS + for cocaine in the ED. Pt denies using cocaine and said she does drink tea "with coca leaves ". Pt remains cooperative with extending inpt stay to complete work-up and ensure MS stabilization. Will let us call [facility] but not [facility] for collateral intake. ASSESSMENT/PLAN: remains with lessening psychosis amd mild affective instability / no change in meds or management plan; expedite intake including call to pt's father; CP d/w Nursing with emphasis on monitoring MS 10/28/16 11:27 DAY UPDATE: Nuring report states pt's evidencing affective lability to more pronounced degree during second shift yesterday, ? overt psychosis; did remain in behavioral control; anger with mother apparently thematic in disclosures to staff; intake from [facility] suggests chronically depressed self-image, affective instability by hx, serious substance problems with h/o rehab rx pat age 23, authentic workup and dx'd ADD responsive to Adderall; he confirmed pt untreated for some time but may have been continuing of Adderall thru to present. ON EXAM: presents as mildly anxious, tangential, no overt psychosis today but ? persistence of IOR; agreed to trial of Abilify with low-dose start at 2 mg bid; pt has not used prn Zyprexa since admission; pt wants to resume Adderall and I told her we need to reaffirm recent use and who prescriber is - allegedly physician in [facility] system; she also understands her need for psychiatric followup and states she can't afford to reume her [facility] coverage. ASSESSMENT/PLAN: residual lability and circumscribed PI in form of IOR/ begin Abilify 2mg bid; discuss case with Dr. Su at his return tomorrow to attending role; attempt intake from [facility] tomorrow 10/29/16 15:38 DY ' U[DATE/EXAM: Nursing reports pt maintaining behavioral control, c/w cares and meds; relatively isolated but is selectively social and attending some groups/ on exam there is no evidence of psychosis and pt denies thought of demons or negative energy; does also report effective contacts with her mother by phone; feels some urgency to resume her Adderall prescribed by former [facility] psychiatrist which she again states she was taking until few days before this admission - thinks her dysphoric mood is a function of not taking it; is willing to continue the trial of Abilify. ASSESSMENT/PLAN: not evidencing psychosis by exam today, residual but less lability/ will try to confirm use of Adderall and consider speaker phone family conference with mother tomorrow 10/30/16 15:15 DAY ' UPDATE/EXAM: Nursing reports pt continues in to comply with meds/cares,and is in behavioral control, managing ADL'S; does not manifest overt psychosis, is mildly labile, thought process evidences poor insight, entitlement, neediness, but does accept limits; on direct exam pt presents as nonpsychotic, prominent denial/minimization of problems [employer]; continues to deny drug abuse longer term or acutely o/t self-initiated rehab program in her twenties. INTAKE FROM [facility]: s/w FOC and SOC 2 separate calls; they both describe the pt as chronically affectively unstable and vulnerable to episodes of psychotic disorganization as well as intermittently abusive of various drugs including cocaine; parents while have collaborated with each other to support the patient life-long emotionally and financially; [facility] moved to [place] several years ago when pt decided to move in order to look after her and pt's 11 yo daughter. Pt apparently has lived an idiosyncratic lifestyle with emphasis on following "spiritual" belief systems shared by others in a network of people that do practice rituals and recognize different energy "states". Her psychosis [employer] integrated this belief system per intake from [facility] who had flown out from [facility] because of family recognizing pt was decompensating. INTAKE FROM [facility] ; Pt last seen at [facility] 08/23 and had completed ADHD workup positive for the syndrome; pt has been receiving Adderall 20 mg bid prescribed regularly thru this month at 3 month intervals despite not being seen for 14 months. Other dx's not identified in the [facility] workup; this insurance coverage has been terminated in recent months. ASSESSMENT/PLAN: descriptively improving with resolving psychotic acuity; dx workup incomplete but progressing/ no change in meds or management; will cconsider beginning Adderall 10 mg bid and monitoring MSE; unclear if will continue post DC without assurance of linked definitve DC plan which provides medication management; lyle need EMMA in include mother in workup and rx planning 10/31/16 DAY " UPDATE/EXAM: Objective: Vital Signs Temp Pulse Resp BP Pulse Ox 36.4 C 79 14 107/68 95 10/31/16 06:00 10/31/16 06:00 10/31/16 06:00 10/31/16 06:00 10/31/16 06:00 ICD10 Worksheet Patient Problems: Problems Problem Status Onset Psychosis Acute
[2016-10-31] MEDS: ARIPiprazole 2 MG TAB PO SCH ×2 (08:32→20:54)
[2016-10-31] MEDS: NICOTINE 14 MG/24 HR PATCH TD SCH (08:32)
[2016-10-31] MEDS: NICOTINE POLACRILEX 2 MG GUM B PRN (19:08)
[2016-10-31] MEDS ORDERED: ADDERALL 10 MG TAB PO SCH (21:00)
[2016-11-01] MEDS: LORazepam 0.5 MG TAB PO PRN ×2 (00:09→23:24)
--- NOTE | 2016-11-01 06:49 | SOAPPROG ---
SOAP Progress Note Assessment/Plan: Assessment: Plan: 10/27/16 12:19 DAY UPDATE: 36 yo SWF admitted via [facility] ED for c/o acute pychotic decompensation emerging over week [employer]; not a psychiatric outpt or on meds [employer]; had been treated as outpt in [facility] as an adult for ADHD and ? Bipolar Disorder and has long-term h/o affective instability, ADHD, ? cocaine abuse. Acutely disorganized and agitated in the ED, received Zyprexa 10 mg IM and slept with improved mental status upon awakening prior to M1 admission to yesterday. Dr Su's admission exam reports mild POS, over-talkativeness, IOR circumscribed; pt p/o prn Zyprexa only, slept overnight, in behavioral control and compliant with cares. ON EXAM: presents as slightly pressured but conversant and cooperative; reports falling "in love" recently with long-standing male friend and wanting to connect with him in recent days with her 4 yo daughter out of house and in the care of her mother. However she experienced "negative energy" and the presence of interfering "demons" in the house and with friend's help applied rituals to rid the house of these elements. Mother found her in a disorganized state and brought her to the ED where the acute psychosis was affirmed; TS + for cocaine in the ED. Pt denies using cocaine and said she does drink tea "with coca leaves ". Pt remains cooperative with extending inpt stay to complete work-up and ensure MS stabilization. Will let us call [facility] but not [facility] [place] intake. ASSESSMENT/PLAN: remains with lessening psychosis amd mild affective instability / no change in meds or management plan; expedite intake including call to pt's father; CP d/w Nursing with emphasis on monitoring MS 10/28/16 11:27 DAY UPDATE: [facility] report states pt's evidencing affective lability to more pronounced degree during second shift yesterday, ? overt psychosis; did remain in behavioral control; anger with mother apparently thematic in disclosures to staff; intake from [facility] suggests chronically depressed self-image, affective instability by hx, serious substance problems with h/o rehab rx pat age 23, authentic workup and dx'd ADD responsive to Adderall; he confirmed pt untreated for some time but may have been continuing of Adderall thru to present. ON EXAM: presents as mildly anxious, tangential, no overt psychosis today but ? persistence of IOR; agreed to trial of Abilify with low-dose start at 2 mg bid; pt has not used prn Zyprexa since admission; pt wants to resume Adderall and I told her we need to reaffirm recent use and who prescriber is - allegedly physician in [facility] system; she also understands her need for psychiatric followup and states she can't afford to reume her [facility] coverage. ASSESSMENT/PLAN: residual lability and circumscribed PI in form of IOR/ begin Abilify 2mg bid; discuss case with Dr. Su at his return tomorrow to attending role; attempt intake from [facility] tomorrow 10/29/16 15:38 DY ' U[DATE/EXAM: Nursing reports pt maintaining behavioral control, c/w cares and meds; relatively isolated but is selectively social and attending some groups/ on exam there is no evidence of psychosis and pt denies thought of demons or negative energy; does also report effective contacts with her mother by phone; feels some urgency to resume her Adderall prescribed by former [facility] psychiatrist which she again states she was taking until few days before this admission - thinks her dysphoric mood is a function of not taking it; is willing to continue the trial of Abilify. ASSESSMENT/PLAN: not evidencing psychosis by exam today, residual but less lability/ will try to confirm use of Adderall and consider speaker phone family conference with mother tomorrow 10/30/16 15:15 DAY ' UPDATE/EXAM: Nursing reports pt continues in to comply with meds/cares,and is in behavioral control, managing ADL'S; does not manifest overt psychosis, is mildly labile, thought process evidences poor insight, entitlement, neediness, but does accept limits; on direct exam pt presents as nonpsychotic, prominent denial/minimization of problems [employer]; continues to deny drug abuse longer term or acutely o/t self-initiated rehab program in her twenties. INTAKE FROM [facility]: s/w FOC and SOC 2 separate calls; they both describe the pt as chronically affectively unstable and vulnerable to episodes of psychotic disorganization as well as intermittently abusive of various drugs including cocaine; parents while have collaborated with each other to support the patient life-long emotionally and financially; [facility] [place] ago when pt decided to move in order to look after her and pt's 11 yo daughter. Pt apparently has lived an idiosyncratic lifestyle with emphasis on following "spiritual" belief systems shared by others in a network of people that do practice rituals and recognize different energy "states". Her psychosis [employer] integrated this belief system per intake from [facility] who had flown out from [facility] because of family recognizing pt was decompensating. INTAKE FROM [facility]; Pt last seen at [facility] 08/23 and had completed ADHD workup positive for the syndrome; pt has been receiving Adderall 20 mg bid prescribed regularly thru this month at 3 month intervals despite not being seen for 14 months. Other dx's not identified in the [facility] workup; this insurance coverage has been terminated in recent months. ASSESSMENT/PLAN: descriptively improving with resolving psychotic acuity; dx workup incomplete but progressing/ no change in meds or management; will cconsider beginning Adderall 10 mg bid and monitoring MSE; unclear if will continue post DC without assurance of linked definitve DC plan which provides medication management; lyle need EMMA in include mother in workup and rx planning 10/31/16 15:30 DAY ' UPDATE/EXAM: Nursing reports pt continues to evidence lability, neediness, is overtalkative but responsive to redirection and limits; compliant with cares/ meds and attending groups more regularly/ on exam pt is cooperative and conversant; residual POS, over affectualization, minimizing problems; review meds and goals of further stabilization plus need for formulating DC plan involving multiple services and integrating involvement of [facility] and addressing daughter's needs INTAKE/CC: cC reports to me that [facility] has acquired temporary custody of pt's 11 yo daughter without pt being aware; will need to t/w MOC about this action and integrate pt knowing with rx plan and impact on DC planning ASSESSMENT/PLAN: paced improvement with residual affective instability and presumably syndromally active ADD/ will start Adderall 10 mg bid and consider updosing Abilify; attempt speaker phone meeting with FOC and pt tomorrow; bring MOC in for family meeting Objective: Vital Signs Temp Pulse Resp BP Pulse Ox 36.5 C 76 16 107/57 L 94 11/01/16 06:00 11/01/16 06:00 11/01/16 06:00 11/01/16 06:00 11/01/16 06:00 ICD10 Worksheet Patient Problems: Problems Problem Status Onset Psychosis Acute
[2016-11-01] MEDS: ARIPiprazole 2 MG TAB PO SCH ×2 (08:00→19:32)
[2016-11-01] MEDS: ADDERALL 10 MG TAB PO SCH ×2 (08:01→12:34)
[2016-11-01] MEDS: NICOTINE 14 MG/24 HR PATCH TD SCH (08:01)
[2016-11-01] MEDS: NICOTINE POLACRILEX 2 MG GUM B PRN ×2 (16:22→21:14)
--- NOTE | 2016-11-02 07:04 | SOAPPROG ---
SOAP Progress Note Assessment/Plan: Assessment: Plan: 10/27/16 12:19 DAY UPDATE: 36 yo SWF admitted via [facility] ED for c/o acute pychotic decompensation emerging over week [employer]; not a psychiatric outpt or on meds [employer]; had been treated as outpt in [facility] as an adult for ADHD and ? Bipolar Disorder and has long-term h/o affective instability, ADHD, ? cocaine abuse. Acutely disorganized and agitated in the ED, received Zyprexa 10 mg IM and slept with improved mental status upon awakening prior to M1 admission to yesterday. Dr Su's admission exam reports mild POS, over-talkativeness, IOR circumscribed; pt p/o prn Zyprexa only, slept overnight, in behavioral control and compliant with cares. ON EXAM: presents as slightly pressured but conversant and cooperative; reports falling "in love" recently with long-standing male friend and wanting to connect with him in recent days with her 4 yo daughter out of house and in the care of her mother. However she experienced "negative energy" and the presence of interfering "demons" in the house and with friend's help applied rituals to rid the house of these elements. Mother found her in a disorganized state and brought her to the ED where the acute psychosis was affirmed; TS + for cocaine in the ED. Pt denies using cocaine and said she does drink tea "with coca leaves ". Pt remains cooperative with extending inpt stay to complete work-up and ensure MS stabilization. Will let us call [facility] but not [facility] [place] for collateral intake. ASSESSMENT/PLAN: remains with lessening psychosis amd mild affective instability / no change in meds or management plan; expedite intake including call to pt's father; CP d/w Nursing with emphasis on monitoring MS 10/28/16 11:27 DAY UPDATE: Nuring report states pt's evidencing affective lability to more pronounced degree during second shift yesterday, ? overt psychosis; did remain in behavioral control; anger with mother apparently thematic in disclosures to staff; intake from [facility] suggests chronically depressed self-image, affective instability by hx, serious substance problems with h/o rehab rx pat age 23, authentic workup and dx'd ADD responsive to Adderall; he confirmed pt untreated for some time but may have been continuing of Adderall thru to present. ON EXAM: presents as mildly anxious, tangential, no overt psychosis today but ? persistence of IOR; agreed to trial of Abilify with low-dose start at 2 mg bid; pt has not used prn Zyprexa since admission; pt wants to resume Adderall and I told her we need to reaffirm recent use and who prescriber is - allegedly physician in [facility] system; she also understands her need for psychiatric followup and states she can't afford to reume her [facility] coverage. ASSESSMENT/PLAN: residual lability and circumscribed PI in form of IOR/ begin Abilify 2mg bid; discuss case with Dr. Su at his return tomorrow to attending role; attempt intake from [facility] tomorrow 10/29/16 15:38 DY ' U[DATE/EXAM: Nursing reports pt maintaining behavioral control, c/w cares and meds; relatively isolated but is selectively social and attending some groups/ on exam there is no evidence of psychosis and pt denies thought of demons or negative energy; does also report effective contacts with her mother by phone; feels some urgency to resume her Adderall prescribed by former [facility] psychiatrist which she again states she was taking until few days before this admission - thinks her dysphoric mood is a function of not taking it; is willing to continue the trial of Abilify. ASSESSMENT/PLAN: not evidencing psychosis by exam today, residual but less lability/ will try to confirm use of Adderall and consider speaker phone family conference with mother tomorrow 10/30/16 15:15 DAY ' UPDATE/EXAM: Nursing reports pt continues in to comply with meds/cares,and is in behavioral control, managing ADL'S; does not manifest overt psychosis, is mildly labile, thought process evidences poor insight, entitlement, neediness, but does accept limits; on direct exam pt presents as nonpsychotic, prominent denial/minimization of problems [employer]; continues to deny drug abuse longer term or acutely o/t self-initiated rehab program in her twenties. INTAKE FROM [facility]: s/w FOC and SOC 2 separate calls; they both describe the pt as chronically affectively unstable and vulnerable to episodes of psychotic disorganization as well as intermittently abusive of various drugs including cocaine; parents while have collaborated with each other to support the patient life-long emotionally and financially; [facility] [place] moved to [place] several years ago when pt decided to move in order to look after her and pt's 11 yo daughter. Pt apparently has lived an idiosyncratic lifestyle with emphasis on following "spiritual" belief systems shared by others in a network of people that do practice rituals and recognize different energy "states". Her psychosis [employer] integrated this belief system per intake from [facility] who had flown out from [facility] because of family recognizing pt was decompensating. INTAKE FROM [facility]; Pt last seen at [facility] 08/23 and had completed ADHD workup positive for the syndrome; pt has been receiving Adderall 20 mg bid prescribed regularly thru this month at 3 month intervals despite not being seen for 14 months. Other dx's not identified in the [facility] workup; this insurance coverage has been terminated in recent months. ASSESSMENT/PLAN: descriptively improving with resolving psychotic acuity; dx workup incomplete but progressing/ no change in meds or management; will cconsider beginning Adderall 10 mg bid and monitoring MSE; unclear if will continue post DC without assurance of linked definitive DC plan which provides medication management; will need EMMA in include mother in workup and rx planning 10/31/16 15:30 DAY ' UPDATE/EXAM: Nursing reports pt continues to evidence lability, neediness, is over talkative but responsive to redirection and limits; compliant with cares/ meds and attending groups more regularly/ on exam pt is cooperative and conversant; residual POS, over affectualization, minimizing problems; review meds and goals of further stabilization plus need for formulating DC plan involving multiple services and integrating involvement of [facility] [place] [place] and addressing daughter's needs INTAKE/CC: CC reports to me that [facility] [place] [place] has acquired temporary custody of pt's 11 yo daughter without pt being aware; will need to t/w MOC about this action and integrate pt knowing with rx plan and impact on DC planning ASSESSMENT/PLAN: paced improvement with residual affective instability and presumably syndromally active ADD/ will start Adderall 10 mg bid and consider updosing Abilify; attempt speaker phone meeting with FOC and pt tomorrow; bring MOC in for family meeting 11/01/16 15:15 DAY ' UPDATE/EXAM: Nursing reports pt continues to interact with residual lability and needfulness but is incrementally improving, responsive to limits and re- direction, more socially appropriate, c/w cares and meds, using group structures / on direct exam pt appears calmer and less pressured, not overtly psychotic, thought process very concrete and child-like with a here-and now focus and minimally reflective; we do reach FOC for speaker phone discussion; FOC does report the action by MOC obtaining temporary guardianship of pt's daughter - reacting to pt's psychotic decompensation [employer] and pt's inability to care for her daughter. 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 FOC also concerned about pt's vulnerability to drug abuse but did not provide precise details. Pt managed to maintain control/integration thru this discussion, actively verbally engaged her father appropriately and is concerned about losing parental contact with daughter; pt + about involving MOC in family discussions about her DC planning and better understanding the guardianship intervention by MOC. ASSESSMENT/PLAN: improving descriptively in resolving psychotic acuity and stabilizing affectively/ will increase Abilify to 5 mg qam, consider adding mood stabilizer; will expedite family meeting with pt and MOC and begin to formulate definitive DC plan Objective: Vital Signs Temp Pulse Resp BP Pulse Ox 36.6 C 83 16 116/75 96 11/02/16 04:34 11/02/16 04:34 11/02/16 04:34 11/02/16 04:34 11/02/16 04:34 ICD10 Worksheet Patient Problems: Problems Problem Status Onset Psychosis Acute
[2016-11-02] MEDS: NICOTINE 14 MG/24 HR PATCH TD SCH (08:46)
[2016-11-02] MEDS: ADDERALL 10 MG TAB PO SCH ×2 (08:47→12:34)
[2016-11-02] MEDS: ARIPiprazole 5 MG TAB PO SCH (08:48)
[2016-11-02] MEDS: MAGNESIUM HYDROXIDE 30 ML UDCUP PO PRN (20:47)
[2016-11-02] MEDS: LORazepam 0.5 MG TAB PO PRN (22:24)
--- NOTE | 2016-11-03 08:05 | SOAPPROG ---
SOAP Progress Note Assessment/Plan: Assessment: Plan: 10/27/16 12:19 DAY UPDATE: 36 yo SWF admitted via [facility] ED for c/o acute pychotic decompensation emerging over week OBSTETRICS GYNECOLOGY MD; not a psychiatric outpt or on meds OBSTETRICS GYNECOLOGY MD; had been treated as outpt in [facility] as an adult for ADHD and ? Bipolar Disorder and has long-term h/o affective instability, ADHD, ? cocaine abuse. Acutely disorganized and agitated in the ED, received Zyprexa 10 mg IM and slept with improved mental status upon awakening prior to M1 admission to yesterday. Dr Su's admission exam reports mild POS, over-talkativeness, IOR circumscribed; pt p/o prn Zyprexa only, slept overnight, in behavioral control and compliant with cares. ON EXAM: presents as slightly pressured but conversant and cooperative; reports falling "in love" recently with long-standing male friend and wanting to connect with him in recent days with her 4 yo daughter out of house and in the care of her mother. However she experienced "negative energy" and the presence of interfering "demons" in the house and with friend's help applied rituals to rid the house of these elements. Mother found her in a disorganized state and brought her to the ED where the acute psychosis was affirmed; TS + for cocaine in the ED. Pt denies using cocaine and said she does drink tea "with coca leaves ". Pt remains cooperative with extending inpt stay to complete work-up and ensure MS stabilization. Will let us call [facility] but not [facility] for collateral intake. ASSESSMENT/PLAN: remains with lessening psychosis amd mild affective instability / no change in meds or management plan; expedite intake including call to pt's father; CP d/w Nursing with emphasis on monitoring MS 10/28/16 11:27 DAY UPDATE: [facility] report states pt's evidencing affective lability to more pronounced degree during second shift yesterday, ? overt psychosis; did remain in behavioral control; anger with mother apparently thematic in disclosures to staff; intake from [facility] suggests chronically depressed self-image, affective instability by hx, serious substance problems with h/o rehab rx pat age 23, authentic workup and dx'd ADD responsive to Adderall; he confirmed pt untreated for some time but may have been continuing of Adderall thru to present. ON EXAM: presents as mildly anxious, tangential, no overt psychosis today but ? persistence of IOR; agreed to trial of Abilify with low-dose start at 2 mg bid; pt has not used prn Zyprexa since admission; pt wants to resume Adderall and I told her we need to reaffirm recent use and who prescriber is - allegedly physician in [place] system; she also understands her need for psychiatric followup and states she can't afford to reume her [place] coverage. ASSESSMENT/PLAN: residual lability and circumscribed PI in form of IOR/ begin Abilify 2mg bid; discuss case with Dr. Su at his return tomorrow to attending role; attempt intake from [place] tomorrow 10/29/16 15:38 DY ' U[DATE/EXAM: Nursing reports pt maintaining behavioral control, c/w cares and meds; relatively isolated but is selectively social and attending some groups/ on exam there is no evidence of psychosis and pt denies thought of demons or negative energy; does also report effective contacts with her mother by phone; feels some urgency to resume her Adderall prescribed by former [place] psychiatrist which she again states she was taking until few days before this admission - thinks her dysphoric mood is a function of not taking it; is willing to continue the trial of Abilify. ASSESSMENT/PLAN: not evidencing psychosis by exam today, residual but less lability/ will try to confirm use of Adderall and consider speaker phone family conference with mother tomorrow 10/30/16 15:15 DAY ' UPDATE/EXAM: Nursing reports pt continues in to comply with meds/cares,and is in behavioral control, managing ADL'S; does not manifest overt psychosis, is mildly labile, thought process evidences poor insight, entitlement, neediness, but does accept limits; on direct exam pt presents as nonpsychotic, prominent denial/minimization of problems OBSTETRICS GYNECOLOGY MD; continues to deny drug abuse longer term or acutely o/t self-initiated rehab program in her twenties. INTAKE FROM [facility]: s/w FOC and SOC 2 separate calls; they both describe the pt as chronically affectively unstable and vulnerable to episodes of psychotic disorganization as well as intermittently abusive of various drugs including cocaine; parents while have collaborated with each other to support the patient life-long emotionally and financially; [facility] moved to [place] several years ago when pt decided to move in order to look after her and pt's 11 yo daughter. Pt apparently has lived an idiosyncratic lifestyle with emphasis on following "spiritual" belief systems shared by others in a network of people that do practice rituals and recognize different energy "states". Her psychosis OBSTETRICS GYNECOLOGY MD integrated this belief system per intake from [facility] who had flown out from [facility] because of family recognizing pt was decompensating. INTAKE FROM [facility]; Pt last seen at [place] 08/23 and had completed ADHD workup positive for the syndrome; pt has been receiving Adderall 20 mg bid prescribed regularly thru this month at 3 month intervals despite not being seen for 14 months. Other dx's not identified in the [place] workup; this insurance coverage has been terminated in recent months. ASSESSMENT/PLAN: descriptively improving with resolving psychotic acuity; dx workup incomplete but progressing/ no change in meds or management; will cconsider beginning Adderall 10 mg bid and monitoring MSE; unclear if will continue post DC without assurance of linked definitive DC plan which provides medication management; will need EMMA in include mother in workup and rx planning 10/31/16 15:30 DAY ' UPDATE/EXAM: Nursing reports pt continues to evidence lability, neediness, is over talkative but responsive to redirection and limits; compliant with cares/ meds and attending groups more regularly/ on exam pt is cooperative and conversant; residual POS, over affectualization, minimizing problems; review meds and goals of further stabilization plus need for formulating DC plan involving multiple services and integrating involvement of [facility] and addressing daughter's needs INTAKE/CC: CC reports to me that [facility] has acquired temporary custody of pt's 11 yo daughter without pt being aware; will need to t/w MOC about this action and integrate pt knowing with rx plan and impact on DC planning ASSESSMENT/PLAN: paced improvement with residual affective instability and presumably syndromally active ADD/ will start Adderall 10 mg bid and consider updosing Abilify; attempt speaker phone meeting with FOC and pt tomorrow; bring MOC in for family meeting 11/01/16 15:15 DAY ' UPDATE/EXAM: Nursing reports pt continues to interact with residual lability and needfulness but is incrementally improving, responsive to limits and re- direction, more socially appropriate, c/w cares and meds, using group structures / on direct exam pt appears calmer and less pressured, not overtly psychotic, thought process very concrete and child-like with a here-and now focus and minimally reflective; we do reach FOC for speaker phone discussion; FOC does report the action by MOC obtaining temporary guardianship of pt's daughter - reacting to pt's psychotic decompensation OBSTETRICS GYNECOLOGY MD and pt's inability to care for her daughter. 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 FOC also concerned about pt's vulnerability to drug abuse but did not provide precise details. Pt managed to maintain control/integration thru this discussion, actively verbally engaged her father appropriately and is concerned about losing parental contact with daughter; pt + about involving MOC in family discussions about her DC planning and better understanding the guardianship intervention by MOC. ASSESSMENT/PLAN: improving descriptively in resolving psychotic acuity and stabilizing affectively/ will increase Abilify to 5 mg qam, consider adding mood stabilizer; will expedite family meeting with pt and MOC and begin to formulate definitive DC plan 11/02/16 14:30 DAY ' UPDATE: Nursing reports over last 24 cycle pt slept well, c/w cares and meds, improving social interactions - less intrusive and more conversant; continues to attend group therapies. ON EXAM: relatively calm and conversant on presentation; residual POS and mid tangentiality but appears to be gaining in stabilizing affectively; during session contacted MOC on speaker phone; MOC agreeable to more extended speaker phone family meeting 11/05 after first speaking with me individually; MOC indicated she doesn"t feel ready to visit pt directly over the weekend as her own anger and general distress about daughter is still to troubling to her whic is in contrast to pt's readiness and wish to have visit from her mother. ASSESSMENT/PLAN: progress continuing in stabilizing mental status/ will hold off beginning mood stabilizer until 11/05 and continue thru weekend with meds unchanged and assess again 11/05 - need to ensure tolerance to updosed Abilify given pt's concerns; CP unchanged as d/w Nursing; formulate definitive DC planning and anticipate DC next week pending resolution of tension with MOC and readiness of pt, MOC, and pt's daughter to resume family system operation post DC Objective: Vital Signs Temp Pulse Resp BP Pulse Ox 36.8 C 88 15 119/58 L 97 11/03/16 04:23 11/03/16 04:23 11/03/16 04:23 11/03/16 04:23 11/03/16 04:23 ICD10 Worksheet Patient Problems: Problems Problem Status Onset Psychosis Acute
[2016-11-03] MEDS: ARIPiprazole 5 MG TAB PO SCH (08:20)
[2016-11-03] MEDS: NICOTINE 14 MG/24 HR PATCH TD SCH (08:20)
[2016-11-03] MEDS: ADDERALL 10 MG TAB PO SCH ×2 (08:20→13:38)
[2016-11-03] MEDS: LORazepam 0.5 MG TAB PO PRN ×2 (16:23→20:23)
[2016-11-03] MEDS: MAGNESIUM HYDROXIDE 30 ML UDCUP PO PRN (20:43)
[2016-11-03] MEDS: NICOTINE POLACRILEX 2 MG GUM B PRN (20:44)
--- NOTE | 2016-11-03 23:53 | SOAPPROG ---
SOAP Progress Note Assessment/Plan: Assessment: 36yo SWF with BMD 1, ADD and polysubst use d/o admitted in manic/psychotic state. still seems hypomanic. 11/03/16 15:01 per staff, pt slept 6.5 hr. was noted tearful/crying in room this am. attending groups, no behavioral mgmt issues. pt reports she attended a group where different personality traits were discussed, and she noted her mother had many of certain traits contributing to their conflict. she was also upset by a phone call from a friend who got information from her mother that Nathan Jimenez had a girlfriend etc. Pt didn't feel this info was accurate nor supportive to her mental health state emotionally, and felt her friend was therefore not being a good friend at that moment but may not have realized it. Pt then proceeded to share her long story about Nathan Jimenez and her long love of him, and how she saw him at [employer] and [email or web address], and knew he must have been in love with her etc. Denied medication s/e or any physical complaints. MSE: casually dressed petite CF, good eye contact, neatly kempt/dressed, and with nml vol/sl incr rate speech. mood "you caught me at a bad time, I'm usually happy", affect mildly labile, thoughts overinclusive and perseverative on Nathan Jimenez, no ah/vh or any si/hi reported. i/j seem concrete and limited. PLAN: Cont current meds Abilify, adderall. 11/05/16 00:18 Objective: Vital Signs Temp Pulse Resp BP Pulse Ox 36.8 C 88 15 119/58 L 97 11/03/16 04:23 11/03/16 04:23 11/03/16 04:23 11/03/16 04:23 11/03/16 04:23 Medications Generic Name Dose Route Start Last Admin Trade Name Freq PRN Reason Stop Dose Admin Amphetamine/Dextroamphetamine 10 mg 11/01/16 08:00 11/04/16 13:01 Adderall PO 04/30/17 07:59 10 mg BID@0800,1300 ROMANA Aripiprazole 5 mg 11/02/16 09:00 11/04/16 08:24 Abilify PO 05/01/17 08:59 5 mg DAILY ROMANA Lorazepam 0.5 - 1 mg 10/25/16 23:14 11/04/16 19:38 Ativan PO 04/23/17 23:13 0.5 mg Q4HRS PRN ANXIETY,INSOMNIA,AGITATION Nicotine 14 mg 10/27/16 20:00 11/04/16 08:26 Nicoderm Cq TD 04/25/17 19:59 14 mg DAILY ROMANA - Time Spent With Patient Time Spent With Patient: 40min - Pending Discharge Pending Discharge Within 24 Hours: No Pending Discharge Within 48 Hours: No ICD10 Worksheet Patient Problems: Problems Problem Status Onset Psychosis Acute
[2016-11-04] MEDS: ADDERALL 10 MG TAB PO SCH ×2 (08:24→13:01)
[2016-11-04] MEDS: ARIPiprazole 5 MG TAB PO SCH (08:24)
[2016-11-04] MEDS: NICOTINE 14 MG/24 HR PATCH TD SCH (08:26)
[2016-11-04] MEDS: NICOTINE POLACRILEX 2 MG GUM B PRN ×4 (08:28→21:06)
[2016-11-04] MEDS: LORazepam 0.5 MG TAB PO PRN (19:38)
--- NOTE | 2016-11-05 00:35 | SOAPPROG ---
SOAP Progress Note Assessment/Plan: Assessment: 36yo SWF with BMD 1, ADD and polysubst use d/o admitted in manic/psychotic state. still seems hypomanic. 11/03/16 15:01 per staff, pt slept 6.5 hr. was noted tearful/crying in room this am. attending groups, no behavioral mgmt issues. pt reports she attended a group where different personality traits were discussed, and she noted her mother had many of certain traits contributing to their conflict. she was also upset by a phone call from a friend who got information from her mother that Nathan Jimenez had a girlfriend etc. Pt didn't feel this info was accurate nor supportive to her mental health state emotionally, and felt her friend was therefore not being a good friend at that moment but may not have realized it. Pt then proceeded to share her long story about Nathan Jimenez and her long love of him, and how she saw him at [employer] and [employer], and knew he must have been in love with her etc. Denied medication s/e or any physical complaints. MSE: casually dressed petite CF, good eye contact, neatly kempt/dressed, and with nml vol/sl incr rate speech. mood "you caught me at a bad time, I'm usually happy", affect mildly labile, thoughts overinclusive and perseverative on Nathan Jimenez, no ah/vh or any si/hi reported. i/j seem concrete and limited. PLAN: Cont current meds Abilify, adderall. 11/04/2016 14:00 Per staff, slept 9hr. Staff report patient has been wanting to fix another elderly patient's matted hair, noting she saw something before admission related to fixing hair and sees it as a spiritual sign indicating one of her reasons for being here now is to do her hair. Also note that pt felt her daughter was drawing pictures purposefully targeted to upset patient (as per ngs report). Pt reports mood is better today, feels happier and calm not upset like yesterday. Pt spoke with dtr on phone today, explaining that many friends/ family have a "mid-life crisis" including herself, and this is why she needs to be in hosp to get better, and that she will do everything asked of her to get custody back of her. Also she talked with her dtr about the fun things she planned to do with her dtr after d/c (had made a list). Reports phone call was good. Pt t/a hearing scheduled in December and mother having temp custody of dtr. Pt asking what she can/can not use including a little EtOH and special herbal teas? she talked of not doing cocoa leaf concoctions anymore. MSE: cooperative, talkative, perhaps mildly hypomanic, pleasant, denied psychotic sxs of ah/vh, denied any si/hi. i/j seem both impaired. PLAN: Emphasized med compliance, discussed possibly incr Abilify at least to 7.5 since higher dose may be better as pt transitions back into the community. Agreeable. will defer any med changes to her inpt psych Objective: Vital Signs Temp Pulse Resp BP Pulse Ox 36.7 C 93 13 100/66 96 11/04/16 06:00 11/04/16 06:00 11/04/16 06:00 11/04/16 06:00 11/04/16 06:00 - Time Spent With Patient Time Spent With Patient: 35min - Pending Discharge Pending Discharge Within 24 Hours: No Pending Discharge Within 48 Hours: No ICD10 Worksheet Patient Problems: Problems Problem Status Onset Psychosis Acute
[2016-11-05] MEDS: NICOTINE POLACRILEX 2 MG GUM B PRN ×6 (04:09→21:07)
--- NOTE | 2016-11-05 06:29 | SOAPPROG ---
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 Bipolar Disorder and has long-term h/o affective instability, ADHD, ? cocaine abuse. Acutely disorganized and agitated in the ED, received Zyprexa 10 mg IM and slept with improved mental status upon awakening prior to M1 admission to yesterday. Dr Su's admission exam reports mild POS, over-talkativeness, IOR circumscribed; pt p/o prn Zyprexa only, slept overnight, in behavioral control and compliant with cares. ON EXAM: presents as slightly pressured but conversant and cooperative; reports falling "in love" recently with long-standing male friend and wanting to connect with him in recent days with her 4 yo daughter out of house and in the care of her mother. However she experienced "negative energy" and the presence of interfering "demons" in the house and with friend's help applied rituals to rid the house of these elements. Mother found her in a disorganized state and brought her to the ED where the acute psychosis was affirmed; TS + for cocaine in the ED. Pt denies using cocaine and said she does drink tea "with coca leaves ". Pt remains cooperative with extending inpt stay to complete work-up and ensure MS stabilization. Will let us call [facility] but not [facility] for collateral intake. ASSESSMENT/PLAN: remains with lessening psychosis amd mild affective instability / no change in meds or management plan; expedite intake including call to pt's father; CP d/w Nursing with emphasis on monitoring MS 10/28/16 11:27 DAY UPDATE: Nuring report states pt's evidencing affective lability to more pronounced degree during second shift yesterday, ? overt psychosis; did remain in behavioral control; anger with mother apparently thematic in disclosures to staff; intake from [facility] suggests chronically depressed self-image, affective instability by hx, serious substance problems with h/o rehab rx pat age 23, authentic workup and dx'd ADD responsive to Adderall; he confirmed pt untreated for some time but may have been continuing of Adderall thru to present. ON EXAM: presents as mildly anxious, tangential, no overt psychosis today but ? persistence of IOR; agreed to trial of Abilify with low-dose start at 2 mg bid; pt has not used prn Zyprexa since admission; pt wants to resume Adderall and I told her we need to reaffirm recent use and who prescriber is - allegedly physician in [facility] system; she also understands her need for psychiatric followup and states she can't afford to reume her [facility] coverage. ASSESSMENT/PLAN: residual lability and circumscribed PI in form of IOR/ begin Abilify 2mg bid; discuss case with Dr. Su at his return tomorrow to attending role; attempt intake from [facility] tomorrow 10/29/16 15:38 DY ' U[DATE/EXAM: Nursing reports pt maintaining behavioral control, c/w cares and meds; relatively isolated but is selectively social and attending some groups/ on exam there is no evidence of psychosis and pt denies thought of demons or negative energy; does also report effective contacts with her mother by phone; feels some urgency to resume her Adderall prescribed by former [facility] psychiatrist which she again states she was taking until few days before this admission - thinks her dysphoric mood is a function of not taking it; is willing to continue the trial of Abilify. 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 INTAKE FROM [facility]: s/w FOC and SOC 2 separate calls; they both describe the pt as chronically affectively unstable and vulnerable to episodes of psychotic disorganization as well as intermittently abusive of various drugs including cocaine; parents while have collaborated with each other to support the patient life-long emotionally and financially; [facility] moved to [place] several years ago when pt decided to move in order to look after her and pt's 11 yo daughter. Pt apparently has lived an idiosyncratic lifestyle with emphasis on following "spiritual" belief systems shared by others in a network of people that do practice rituals and recognize different energy "states". Her psychosis PRODUCTION DIRECTOR integrated this belief system per intake from [facility] who had flown out from [facility] because of family recognizing pt was decompensating. INTAKE FROM [facility]; Pt last seen at [facility] 08/23 and had completed ADHD workup positive for the syndrome; pt has been receiving Adderall 20 mg bid prescribed regularly thru this month at 3 month intervals despite not being seen for 14 months. Other dx's not identified in the [facility] workup; this insurance coverage has been terminated in recent months. ASSESSMENT/PLAN: descriptively improving with resolving psychotic acuity; dx workup incomplete but progressing/ no change in meds or management; will cconsider beginning Adderall 10 mg bid and monitoring MSE; unclear if will continue post DC without assurance of linked definitive DC plan which provides medication management; will need EMMA in include mother in workup and rx planning 10/31/16 15:30 DAY ' UPDATE/EXAM: Nursing reports pt continues to evidence lability, neediness, is over talkative but responsive to redirection and limits; compliant with cares/ meds and attending groups more regularly/ on exam pt is cooperative and conversant; residual POS, over affectualization, minimizing problems; review meds and goals of further stabilization plus need for formulating DC plan involving multiple services and integrating involvement of [facility] and addressing daughter's needs INTAKE/CC: CC reports to me that [facility] has acquired temporary custody of pt's 11 yo daughter without pt being aware; will need to t/w MOC about this action and integrate pt knowing with rx plan and impact on DC planning ASSESSMENT/PLAN: paced improvement with residual affective instability and presumably syndromally active ADD/ will start Adderall 10 mg bid and consider updosing Abilify; attempt speaker phone meeting with FOC and pt tomorrow; bring MOC in for family meeting 11/01/16 15:15 DAY ' UPDATE/EXAM: Nursing reports pt continues to interact with residual lability and needfulness but is incrementally improving, responsive to limits and re- direction, more socially appropriate, c/w cares and meds, using group structures / on direct exam pt appears calmer and less pressured, not overtly psychotic, thought process very concrete and child-like with a here-and now focus and minimally reflective; we do reach FOC for speaker phone discussion; FOC does report the action by MOC obtaining temporary guardianship of pt's daughter - reacting to pt's psychotic decompensation PRODUCTION DIRECTOR and pt's inability to care for her daughter. 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 FOC also concerned about pt's vulnerability to drug abuse but did not provide precise details. Pt managed to maintain control/integration thru this discussion, actively verbally engaged her father appropriately and is concerned about losing parental contact with daughter; pt + about involving MOC in family discussions about her DC planning and better understanding the guardianship intervention by MOC. ASSESSMENT/PLAN: improving descriptively in resolving psychotic acuity and stabilizing affectively/ will increase Abilify to 5 mg qam, consider adding mood stabilizer; will expedite family meeting with pt and MOC and begin to formulate definitive DC plan 11/02/16 14:30 DAY ' UPDATE: Nursing reports over last 24 cycle pt slept well, c/w cares and meds, improving social interactions - less intrusive and more conversant; continues to attend group therapies. ON EXAM: relatively calm and conversant on presentation; residual POS and mid tangentiality but appears to be gaining in stabilizing affectively; during session contacted MOC on speaker phone; MOC agreeable to more extended speaker phone family meeting 11/05 after first speaking with me individually; MOC indicated she doesn"t feel ready to visit pt directly over the weekend as her own anger and general distress about daughter is still to troubling to her whic is in contrast to pt's readiness and wish to have visit from her mother. ASSESSMENT/PLAN: progress continuing in stabilizing mental status/ will hold off beginning mood stabilizer until 11/05 and continue thru weekend with meds unchanged and assess again 11/05 - need to ensure tolerance to updosed Abilify given pt's concerns; CP unchanged as d/w Nursing; formulate definitive DC planning and anticipate DC next week pending resolution of tension with MOC and readiness of pt, MOC, and pt's daughter to resume family system operation post DC 11/05/16 DAY ' UPDATE: Objective: Vital Signs Temp Pulse Resp BP Pulse Ox 36.4 C 79 15 104/57 L 96 11/05/16 04:14 11/05/16 04:14 11/05/16 04:14 11/05/16 04:14 11/05/16 04:14 ICD10 Worksheet Patient Problems: Problems Problem Status Onset Psychosis Acute
[2016-11-05] MEDS: NICOTINE 14 MG/24 HR PATCH TD SCH (08:15)
[2016-11-05] MEDS: ARIPiprazole 5 MG TAB PO SCH (08:15)
[2016-11-05] MEDS: ADDERALL 10 MG TAB PO SCH ×2 (08:16→13:15)
--- NOTE | 2016-11-05 13:25 | SOAPPROG ---
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 Bipolar Disorder and has long-term h/o affective instability, ADHD, ? cocaine abuse. Acutely disorganized and agitated in the ED, received Zyprexa 10 mg IM and slept with improved mental status upon awakening prior to M1 admission to yesterday. Dr Su's admission exam reports mild POS, over-talkativeness, IOR circumscribed; pt p/o prn Zyprexa only, slept overnight, in behavioral control and compliant with cares. ON EXAM: presents as slightly pressured but conversant and cooperative; reports falling "in love" recently with long-standing male friend and wanting to connect with him in recent days with her 4 yo daughter out of house and in the care of her mother. However she experienced "negative energy" and the presence of interfering "demons" in the house and with friend's help applied rituals to rid the house of these elements. Mother found her in a disorganized state and brought her to the ED where the acute psychosis was affirmed; TS + for cocaine in the ED. Pt denies using cocaine and said she does drink tea "with coca leaves ". Pt remains cooperative with extending inpt stay to complete work-up and ensure MS stabilization. Will let us call [facility] but not [facility] for collateral intake. ASSESSMENT/PLAN: remains with lessening psychosis amd mild affective instability / no change in meds or management plan; expedite intake including call to pt's father; CP d/w Nursing with emphasis on monitoring MS 10/28/16 11:27 DAY UPDATE: Nuring report states pt's evidencing affective lability to more pronounced degree during second shift yesterday, ? overt psychosis; did remain in behavioral control; anger with mother apparently thematic in disclosures to staff; intake from [facility] suggests chronically depressed self-image, affective instability by hx, serious substance problems with h/o rehab rx pat age 23, authentic workup and dx'd ADD responsive to Adderall; he confirmed pt untreated for some time but may have been continuing of Adderall thru to present. ON EXAM: presents as mildly anxious, tangential, no overt psychosis today but ? persistence of IOR; agreed to trial of Abilify with low-dose start at 2 mg bid; pt has not used prn Zyprexa since admission; pt wants to resume Adderall and I told her we need to reaffirm recent use and who prescriber is - allegedly physician in [facility] system; she also understands her need for psychiatric followup and states she can't afford to reume her [facility] coverage. ASSESSMENT/PLAN: residual lability and circumscribed PI in form of IOR/ begin Abilify 2mg bid; discuss case with Dr. Su at his return tomorrow to attending role; attempt intake from [facility] tomorrow 10/29/16 15:38 DY ' U[DATE/EXAM: Nursing reports pt maintaining behavioral control, c/w cares and meds; relatively isolated but is selectively social and attending some groups/ on exam there is no evidence of psychosis and pt denies thought of demons or negative energy; does also report effective contacts with her mother by phone; feels some urgency to resume her Adderall prescribed by former [facility] psychiatrist which she again states she was taking until few days before this admission - thinks her dysphoric mood is a function of not taking it; is willing to continue the trial of Abilify. 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 INTAKE FROM [facility]: s/w FOC and SOC 2 separate calls; they both describe the pt as chronically affectively unstable and vulnerable to episodes of psychotic disorganization as well as intermittently abusive of various drugs including cocaine; parents while have collaborated with each other to support the patient life-long emotionally and financially; [facility] moved to [place] several years ago when pt decided to move in order to look after her and pt's 11 yo daughter. Pt apparently has lived an idiosyncratic lifestyle with emphasis on following "spiritual" belief systems shared by others in a network of people that do practice rituals and recognize different energy "states". Her psychosis DRY HOUSE TENDER integrated this belief system per intake from [facility] who had flown out from [facility] because of family recognizing pt was decompensating. INTAKE FROM [facility]; Pt last seen at [facility] 08/23 and had completed ADHD workup positive for the syndrome; pt has been receiving Adderall 20 mg bid prescribed regularly thru this month at 3 month intervals despite not being seen for 14 months. Other dx's not identified in the [facility] workup; this insurance coverage has been terminated in recent months. ASSESSMENT/PLAN: descriptively improving with resolving psychotic acuity; dx workup incomplete but progressing/ no change in meds or management; will cconsider beginning Adderall 10 mg bid and monitoring MSE; unclear if will continue post DC without assurance of linked definitive DC plan which provides medication management; will need EMMA in include mother in workup and rx planning 10/31/16 15:30 DAY ' UPDATE/EXAM: Nursing reports pt continues to evidence lability, neediness, is over talkative but responsive to redirection and limits; compliant with cares/ meds and attending groups more regularly/ on exam pt is cooperative and conversant; residual POS, over affectualization, minimizing problems; review meds and goals of further stabilization plus need for formulating DC plan involving multiple services and integrating involvement of [facility] and addressing daughter's needs INTAKE/CC: CC reports to me that [facility] has acquired temporary custody of pt's 11 yo daughter without pt being aware; will need to t/w MOC about this action and integrate pt knowing with rx plan and impact on DC planning ASSESSMENT/PLAN: paced improvement with residual affective instability and presumably syndromally active ADD/ will start Adderall 10 mg bid and consider updosing Abilify; attempt speaker phone meeting with FOC and pt tomorrow; bring MOC in for family meeting 11/01/16 15:15 DAY ' UPDATE/EXAM: Nursing reports pt continues to interact with residual lability and needfulness but is incrementally improving, responsive to limits and re- direction, more socially appropriate, c/w cares and meds, using group structures / on direct exam pt appears calmer and less pressured, not overtly psychotic, thought process very concrete and child-like with a here-and now focus and minimally reflective; we do reach FOC for speaker phone discussion; FOC does report the action by MOC obtaining temporary guardianship of pt's daughter - reacting to pt's psychotic decompensation 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 FOC also concerned about pt's vulnerability to drug abuse but did not provide precise details. Pt managed to maintain control/integration thru this discussion, actively verbally engaged her father appropriately and is concerned about losing parental contact with daughter; pt + about involving MOC in family discussions about her DC planning and better understanding the guardianship intervention by MOC. ASSESSMENT/PLAN: improving descriptively in resolving psychotic acuity and stabilizing affectively/ will increase Abilify to 5 mg qam, consider adding mood stabilizer; will expedite family meeting with pt and MOC and begin to formulate definitive DC plan 11/02/16 14:30 DAY ' UPDATE: Nursing reports over last 24 cycle pt slept well, c/w cares and meds, improving social interactions - less intrusive and more conversant; continues to attend group therapies. ON EXAM: relatively calm and conversant on presentation; residual POS and mid tangentiality but appears to be gaining in stabilizing affectively; during session contacted MOC on speaker phone; MOC agreeable to more extended speaker phone family meeting 11/05 after first speaking with me individually; MOC indicated she doesn"t feel ready to visit pt directly over the weekend as her own anger and general distress about daughter is still to troubling to her whic is in contrast to pt's readiness and wish to have visit from her mother. ASSESSMENT/PLAN: progress continuing in stabilizing mental status/ will hold off beginning mood stabilizer until 11/05 and continue thru weekend with meds unchanged and assess again 11/05 - need to ensure tolerance to updosed Abilify given pt's concerns; CP unchanged as d/w Nursing; formulate definitive DC planning and anticipate DC next week pending resolution of tension with MOC and readiness of pt, MOC, and pt's daughter to resume family system operation post DC 11/05/16 13:13 DAY ' UPDATE/EXAM: Nursing reports over weekend pt displayed some DEJUAN and POS/ lability of affect; compliant with cares/meds and present in milieu and groups, some element of intrusiveness./ on direct exam did observe these elements along with more elaboration of overdetermined relationship with man she's known since age 15 and became psychotically attached to in the 3-4 weeks decompensation DRY HOUSE 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 ASSESSMENT/PLAN: residual psychotic acuity and lability/ will increase Abilify to 7 mg qd and begin Depakote ER trial and 250 mg bid; no change in CP as d/w Nursing Objective: Vital Signs Temp Pulse Resp BP Pulse Ox 36.4 C 79 15 104/57 L 96 11/05/16 04:14 11/05/16 04:14 11/05/16 04:14 11/05/16 04:14 11/05/16 04:14 ICD10 Worksheet Patient Problems: Problems Problem Status Onset Psychosis Acute
[2016-11-05] MEDS: ARIPiprazole 2 MG TAB PO SCH (21:07)
[2016-11-05] MEDS: DIVALPROEX ER 250 MG TAB PO SCH (21:08)
--- NOTE | 2016-11-06 06:08 | SOAPPROG ---
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 Bipolar Disorder and has long-term h/o affective instability, ADHD, ? cocaine abuse. Acutely disorganized and agitated in the ED, received Zyprexa 10 mg IM and slept with improved mental status upon awakening prior to M1 admission to yesterday. Dr Su's admission exam reports mild POS, over-talkativeness, IOR circumscribed; pt p/o prn Zyprexa only, slept overnight, in behavioral control and compliant with cares. ON EXAM: presents as slightly pressured but conversant and cooperative; reports falling "in love" recently with long-standing male friend and wanting to connect with him in recent days with her 4 yo daughter out of house and in the care of her mother. However she experienced "negative energy" and the presence of interfering "demons" in the house and with friend's help applied rituals to rid the house of these elements. Mother found her in a disorganized state and brought her to the ED where the acute psychosis was affirmed; TS + for cocaine in the ED. Pt denies using cocaine and said she does drink tea "with coca leaves ". Pt remains cooperative with extending inpt stay to complete work-up and ensure MS stabilization. Will let us call [facility] but not [facility] for collateral intake. ASSESSMENT/PLAN: remains with lessening psychosis amd mild affective instability / no change in meds or management plan; expedite intake including call to pt's father; CP d/w Nursing with emphasis on monitoring MS 10/28/16 11:27 DAY UPDATE: Nuring report states pt's evidencing affective lability to more pronounced degree during second shift yesterday, ? overt psychosis; did remain in behavioral control; anger with mother apparently thematic in disclosures to staff; intake from [facility] suggests chronically depressed self-image, affective instability by hx, serious substance problems with h/o rehab rx pat age 23, authentic workup and dx'd ADD responsive to Adderall; he confirmed pt untreated for some time but may have been continuing of Adderall thru to present. ON EXAM: presents as mildly anxious, tangential, no overt psychosis today but ? persistence of IOR; agreed to trial of Abilify with low-dose start at 2 mg bid; pt has not used prn Zyprexa since admission; pt wants to resume Adderall and I told her we need to reaffirm recent use and who prescriber is - allegedly physician in [place] system; she also understands her need for psychiatric followup and states she can't afford to reume her [place] coverage. ASSESSMENT/PLAN: residual lability and circumscribed PI in form of IOR/ begin Abilify 2mg bid; discuss case with Dr. Su at his return tomorrow to attending role; attempt intake from [place] tomorrow 10/29/16 15:38 DY ' U[DATE/EXAM: Nursing reports pt maintaining behavioral control, c/w cares and meds; relatively isolated but is selectively social and attending some groups/ on exam there is no evidence of psychosis and pt denies thought of demons or negative energy; does also report effective contacts with her mother by phone; feels some urgency to resume her Adderall prescribed by former [place] psychiatrist which she again states she was taking until few days before this admission - thinks her dysphoric mood is a function of not taking it; is willing to continue the trial of Abilify. ASSESSMENT/PLAN: not evidencing psychosis by exam today, residual but less lability/ will try to confirm use of Adderall and consider speaker phone family conference with mother tomorrow 10/30/16 15:15 DAY ' UPDATE/EXAM: Nursing reports pt continues in to comply with meds/cares,and is in behavioral control, managing ADL'S; does not manifest overt psychosis, is mildly labile, thought process evidences poor insight, entitlement, neediness, but does accept limits; on direct exam pt presents as nonpsychotic, prominent denial/minimization of problems CREDIT INTERVIEWER; continues to deny drug abuse longer term or acutely o/t self-initiated rehab program in her twenties. INTAKE FROM [facility]: s/w FOC and SOC 2 separate calls; they both describe the pt as chronically affectively unstable and vulnerable to episodes of psychotic disorganization as well as intermittently abusive of various drugs including cocaine; parents while have collaborated with each other to support the patient life-long emotionally and financially; [facility] moved to [place] several years ago when pt decided to move in order to look after her and pt's 11 yo daughter. Pt apparently has lived an idiosyncratic lifestyle with emphasis on following "spiritual" belief systems shared by others in a network of people that do practice rituals and recognize different energy "states". Her psychosis CREDIT INTERVIEWER integrated this belief system per intake from [facility] who had flown out from [facility] because of family recognizing pt was decompensating. INTAKE FROM [facility]; Pt last seen at [place] 08/23 and had completed ADHD workup positive for the syndrome; pt has been receiving Adderall 20 mg bid prescribed regularly thru this month at 3 month intervals despite not being seen for 14 months. Other dx's not identified in the [place] workup; this insurance coverage has been terminated in recent months. ASSESSMENT/PLAN: descriptively improving with resolving psychotic acuity; dx workup incomplete but progressing/ no change in meds or management; will cconsider beginning Adderall 10 mg bid and monitoring MSE; unclear if will continue post DC without assurance of linked definitive DC plan which provides medication management; will need EMMA in include mother in workup and rx planning 10/31/16 15:30 DAY ' UPDATE/EXAM: Nursing reports pt continues to evidence lability, neediness, is over talkative but responsive to redirection and limits; compliant with cares/ meds and attending groups more regularly/ on exam pt is cooperative and conversant; residual POS, over affectualization, minimizing problems; review meds and goals of further stabilization plus need for formulating DC plan involving multiple services and integrating involvement of [facility] and addressing daughter's needs INTAKE/CC: CC reports to me that [facility] has acquired temporary custody of pt's 11 yo daughter without pt being aware; will need to t/w MOC about this action and integrate pt knowing with rx plan and impact on DC planning ASSESSMENT/PLAN: paced improvement with residual affective instability and presumably syndromally active ADD/ will start Adderall 10 mg bid and consider updosing Abilify; attempt speaker phone meeting with FOC and pt tomorrow; bring MOC in for family meeting 11/01/16 15:15 DAY ' UPDATE/EXAM: Nursing reports pt continues to interact with residual lability and needfulness but is incrementally improving, responsive to limits and re- direction, more socially appropriate, c/w cares and meds, using group structures / on direct exam pt appears calmer and less pressured, not overtly psychotic, thought process very concrete and child-like with a here-and now focus and minimally reflective; we do reach FOC for speaker phone discussion; FOC does report the action by MOC obtaining temporary guardianship of pt's daughter - reacting to pt's psychotic decompensation CREDIT INTERVIEWER and pt's inability to care for her daughter. 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 FOC also concerned about pt's vulnerability to drug abuse but did not provide precise details. Pt managed to maintain control/integration thru this discussion, actively verbally engaged her father appropriately and is concerned about losing parental contact with daughter; pt + about involving MOC in family discussions about her DC planning and better understanding the guardianship intervention by MOC. ASSESSMENT/PLAN: improving descriptively in resolving psychotic acuity and stabilizing affectively/ will increase Abilify to 5 mg qam, consider adding mood stabilizer; will expedite family meeting with pt and MOC and begin to formulate definitive DC plan 11/02/16 14:30 DAY ' UPDATE: Nursing reports over last 24 cycle pt slept well, c/w cares and meds, improving social interactions - less intrusive and more conversant; continues to attend group therapies. ON EXAM: relatively calm and conversant on presentation; residual POS and mid tangentiality but appears to be gaining in stabilizing affectively; during session contacted MOC on speaker phone; MOC agreeable to more extended speaker phone family meeting 11/05 after first speaking with me individually; MOC indicated she doesn"t feel ready to visit pt directly over the weekend as her own anger and general distress about daughter is still to troubling to her whic is in contrast to pt's readiness and wish to have visit from her mother. ASSESSMENT/PLAN: progress continuing in stabilizing mental status/ will hold off beginning mood stabilizer until 11/05 and continue thru weekend with meds unchanged and assess again 11/05 - need to ensure tolerance to updosed Abilify given pt's concerns; CP unchanged as d/w Nursing; formulate definitive DC planning and anticipate DC next week pending resolution of tension with MOC and readiness of pt, MOC, and pt's daughter to resume family system operation post DC 11/05/16 13:13 DAY ' UPDATE/EXAM: Nursing reports over weekend pt displayed some DEJUAN and POS/ lability of affect; compliant with cares/meds and present in milieu and groups, some element of intrusiveness./ on direct exam did observe these elements along with more elaboration of overdetermined relationship with man she's known since age 15 and became psychotically attached to in the 3-4 weeks decompensation CREDIT INTERVIEWER; during brief speaker phone meeting with pt and mother the dyadic tension between both surfaced. Medications discussed with pt accepting changes as referenced ASSESSMENT/PLAN: residual psychotic acuity and lability/ will increase Abilify to 7 mg qd and begin Depakote ER trial and 250 mg bid; no change in CP as d/w Nursing; intake and family meeting scheduled for tomorrow @ 1100. 11/06/16 DAY UPDATE: Objective: Vital Signs Temp Pulse Resp BP Pulse Ox 36.4 C 79 15 104/57 L 96 11/05/16 04:14 11/05/16 04:14 11/05/16 04:14 11/05/16 04:14 11/05/16 04:14 ICD10 Worksheet Patient Problems: Problems Problem Status Onset Psychosis Acute
[2016-11-06] MEDS: ADDERALL 10 MG TAB PO SCH ×2 (08:00→12:40)
[2016-11-06] MEDS: NICOTINE 14 MG/24 HR PATCH TD SCH (08:00)
[2016-11-06] MEDS: DIVALPROEX ER 250 MG TAB PO SCH ×3 (08:00→22:12)
[2016-11-06] MEDS: ARIPiprazole 5 MG TAB PO SCH (08:00)
[2016-11-06] MEDS: ARIPiprazole 2 MG TAB PO SCH (22:12)
--- NOTE | 2016-11-07 06:57 | SOAPPROG ---
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 Bipolar Disorder and has long-term h/o affective instability, ADHD, ? cocaine abuse. Acutely disorganized and agitated in the ED, received Zyprexa 10 mg IM and slept with improved mental status upon awakening prior to M1 admission to yesterday. Dr Su's admission exam reports mild POS, over-talkativeness, IOR circumscribed; pt p/o prn Zyprexa only, slept overnight, in behavioral control and compliant with cares. ON EXAM: presents as slightly pressured but conversant and cooperative; reports falling "in love" recently with long-standing male friend and wanting to connect with him in recent days with her 4 yo daughter out of house and in the care of her mother. However she experienced "negative energy" and the presence of interfering "demons" in the house and with friend's help applied rituals to rid the house of these elements. Mother found her in a disorganized state and brought her to the ED where the acute psychosis was affirmed; TS + for cocaine in the ED. Pt denies using cocaine and said she does drink tea "with coca leaves ". Pt remains cooperative with extending inpt stay to complete work-up and ensure MS stabilization. Will let us call [facility] but not [facility] for collateral intake. ASSESSMENT/PLAN: remains with lessening psychosis amd mild affective instability / no change in meds or management plan; expedite intake including call to pt's father; CP d/w Nursing with emphasis on monitoring MS 10/28/16 11:27 DAY UPDATE: Nuring report states pt's evidencing affective lability to more pronounced degree during second shift yesterday, ? overt psychosis; did remain in behavioral control; anger with mother apparently thematic in disclosures to staff; intake from [facility] suggests chronically depressed self-image, affective instability by hx, serious substance problems with h/o rehab rx pat age 23, authentic workup and dx'd ADD responsive to Adderall; he confirmed pt untreated for some time but may have been continuing of Adderall thru to present. ON EXAM: presents as mildly anxious, tangential, no overt psychosis today but ? persistence of IOR; agreed to trial of Abilify with low-dose start at 2 mg bid; pt has not used prn Zyprexa since admission; pt wants to resume Adderall and I told her we need to reaffirm recent use and who prescriber is - allegedly physician in [place] system; she also understands her need for psychiatric followup and states she can't afford to reume her [place] coverage. ASSESSMENT/PLAN: residual lability and circumscribed PI in form of IOR/ begin Abilify 2mg bid; discuss case with Dr. Su at his return tomorrow to attending role; attempt intake from [place] tomorrow 10/29/16 15:38 DY ' U[DATE/EXAM: Nursing reports pt maintaining behavioral control, c/w cares and meds; relatively isolated but is selectively social and attending some groups/ on exam there is no evidence of psychosis and pt denies thought of demons or negative energy; does also report effective contacts with her mother by phone; feels some urgency to resume her Adderall prescribed by former [place] psychiatrist which she again states she was taking until few days before this admission - thinks her dysphoric mood is a function of not taking it; is willing to continue the trial of Abilify. ASSESSMENT/PLAN: not evidencing psychosis by exam today, residual but less lability/ will try to confirm use of Adderall and consider speaker phone family conference with mother tomorrow 10/30/16 15:15 DAY ' UPDATE/EXAM: Nursing reports pt continues in to comply with meds/cares,and is in behavioral control, managing ADL'S; does not manifest overt psychosis, is mildly labile, thought process evidences poor insight, entitlement, neediness, but does accept limits; on direct exam pt presents as nonpsychotic, prominent denial/minimization of problems BLOCKER POLISHING; continues to deny drug abuse longer term or acutely o/t self-initiated rehab program in her twenties. INTAKE FROM [facility]: s/w FOC and SOC 2 separate calls; they both describe the pt as chronically affectively unstable and vulnerable to episodes of psychotic disorganization as well as intermittently abusive of various drugs including cocaine; parents while have collaborated with each other to support the patient life-long emotionally and financially; [facility] moved to [place] several years ago when pt decided to move in order to look after her and pt's 11 yo daughter. Pt apparently has lived an idiosyncratic lifestyle with emphasis on following "spiritual" belief systems shared by others in a network of people that do practice rituals and recognize different energy "states". Her psychosis BLOCKER POLISHING integrated this belief system per intake from [facility] who had flown out from [facility] because of family recognizing pt was decompensating. INTAKE FROM [facility]; Pt last seen at [place] 08/23 and had completed ADHD workup positive for the syndrome; pt has been receiving Adderall 20 mg bid prescribed regularly thru this month at 3 month intervals despite not being seen for 14 months. Other dx's not identified in the [place] workup; this insurance coverage has been terminated in recent months. ASSESSMENT/PLAN: descriptively improving with resolving psychotic acuity; dx workup incomplete but progressing/ no change in meds or management; will cconsider beginning Adderall 10 mg bid and monitoring MSE; unclear if will continue post DC without assurance of linked definitive DC plan which provides medication management; will need EMMA in include mother in workup and rx planning 10/31/16 15:30 DAY ' UPDATE/EXAM: Nursing reports pt continues to evidence lability, neediness, is over talkative but responsive to redirection and limits; compliant with cares/ meds and attending groups more regularly/ on exam pt is cooperative and conversant; residual POS, over affectualization, minimizing problems; review meds and goals of further stabilization plus need for formulating DC plan involving multiple services and integrating involvement of [facility] and addressing daughter's needs INTAKE/CC: CC reports to me that [facility] has acquired temporary custody of pt's 11 yo daughter without pt being aware; will need to t/w MOC about this action and integrate pt knowing with rx plan and impact on DC planning ASSESSMENT/PLAN: paced improvement with residual affective instability and presumably syndromally active ADD/ will start Adderall 10 mg bid and consider updosing Abilify; attempt speaker phone meeting with FOC and pt tomorrow; bring MOC in for family meeting 11/01/16 15:15 DAY ' UPDATE/EXAM: Nursing reports pt continues to interact with residual lability and needfulness but is incrementally improving, responsive to limits and re- direction, more socially appropriate, c/w cares and meds, using group structures / on direct exam pt appears calmer and less pressured, not overtly psychotic, thought process very concrete and child-like with a here-and now focus and minimally reflective; we do reach FOC for speaker phone discussion; FOC does report the action by MOC obtaining temporary guardianship of pt's daughter - reacting to pt's psychotic decompensation BLOCKER POLISHING and pt's inability to care for her daughter. 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 FOC also concerned about pt's vulnerability to drug abuse but did not provide precise details. Pt managed to maintain control/integration thru this discussion, actively verbally engaged her father appropriately and is concerned about losing parental contact with daughter; pt + about involving MOC in family discussions about her DC planning and better understanding the guardianship intervention by MOC. ASSESSMENT/PLAN: improving descriptively in resolving psychotic acuity and stabilizing affectively/ will increase Abilify to 5 mg qam, consider adding mood stabilizer; will expedite family meeting with pt and MOC and begin to formulate definitive DC plan 11/02/16 14:30 DAY ' UPDATE: Nursing reports over last 24 cycle pt slept well, c/w cares and meds, improving social interactions - less intrusive and more conversant; continues to attend group therapies. ON EXAM: relatively calm and conversant on presentation; residual POS and mid tangentiality but appears to be gaining in stabilizing affectively; during session contacted MOC on speaker phone; MOC agreeable to more extended speaker phone family meeting 11/05 after first speaking with me individually; MOC indicated she doesn"t feel ready to visit pt directly over the weekend as her own anger and general distress about daughter is still to troubling to her whic is in contrast to pt's readiness and wish to have visit from her mother. ASSESSMENT/PLAN: progress continuing in stabilizing mental status/ will hold off beginning mood stabilizer until 11/05 and continue thru weekend with meds unchanged and assess again 11/05 - need to ensure tolerance to updosed Abilify given pt's concerns; CP unchanged as d/w Nursing; formulate definitive DC planning and anticipate DC next week pending resolution of tension with MOC and readiness of pt, MOC, and pt's daughter to resume family system operation post DC 11/05/16 13:13 DAY ' UPDATE/EXAM: Nursing reports over weekend pt displayed some DEJUAN and POS/ lability of affect; compliant with cares/meds and present in milieu and groups, some element of intrusiveness./ on direct exam did observe these elements along with more elaboration of overdetermined relationship with man she's known since age 15 and became psychotically attached to in the 3-4 weeks decompensation [employer]ING; during brief speaker phone meeting with pt and mother the dyadic tension between both surfaced. Medications discussed with pt accepting changes as referenced ASSESSMENT/PLAN: residual psychotic acuity and lability/ will increase Abilify to 7 mg qd and begin Depakote ER trial and 250 mg bid; no change in CP as d/w Nursing; intake and family meeting scheduled for tomorrow @ 1100. 11/06/16 10:30 DAY UPDATE: Nursing reports over last 24 cycle pt has contnued to evidence esidual lability, mild POS, mild intrusiveness socially; also refursed to take Depakote x 2 doses; MOC came to unit in AM and told Nursing she would not be returning for the planned family meeting at 11:00 as she was not ready to face her daughter given her anger toward her and the continued felt stress of dealing with daughter's abusive behaviors. ON EXAM: pt presented as relatively calm but again evidences lability and reactivity about MOC - angry, blaming, stating mother constantly distorts and l ies about her; pt was able to settle down in session with limits and support; agreed to take Depakote; able to discuss how to manage mother interactively; spoke with FOC with pt in the office and clarified his arrival to unit for meeting on 11/09; he also understood the necessity of pt's mother being involved directly in pt's DC planning and finding way to interact with pt directly prio to dC and their resuming contact in the community around the care of pt's daughter. He will speak to pt's mother and attempt to facilitate her cooperation. Pt maintained her self in integrated manner thru my discussion with father and endorsed his support for her treatment. I contacted MOC telephonically and supported her role with care-taking pt's daughter and the importance of her participating in the pt's rx planning prior to DC; [facility] was responsive and will reconsider scheduling family meeting this week. ASSESSMENT/PLAN: residual affective instability in context of primary dyadic conflict between pt and her mother; mother has temporary guardianship of pt's 11 yo daughter and will need to stably interact with pt a/w pt visits with her daughter/ reinforce pt's compliance with Depakote trial; continue family work to enable pt and mother to cooperate with DC planning and follow contacts between pt, her mother, and pt's daughter; inpt stay will need extending beyond 55 to stabilize pt and family system sufficiently for effective DC to community treatment plan. Objective: Vital Signs Temp Pulse Resp BP Pulse Ox 37.1 C 60 14 107/64 97 11/07/16 00:09 11/07/16 00:09 11/07/16 00:09 11/07/16 00:11/07/16 00:09 ICD10 Worksheet Patient Problems: Problems Problem Status Onset Psychosis Acute
[2016-11-07] MEDS: DIVALPROEX ER 250 MG TAB PO SCH ×2 (08:22→22:06)
[2016-11-07] MEDS: ARIPiprazole 5 MG TAB PO SCH (08:22)
[2016-11-07] MEDS: ADDERALL 10 MG TAB PO SCH ×2 (08:22→12:53)
[2016-11-07] MEDS: NICOTINE 14 MG/24 HR PATCH TD SCH (08:23)
--- NOTE | 2016-11-07 14:06 | SOAPPROG ---
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 Bipolar Disorder and has long-term h/o affective instability, ADHD, ? cocaine abuse. Acutely disorganized and agitated in the ED, received Zyprexa 10 mg IM and slept with improved mental status upon awakening prior to M1 admission to yesterday. Dr Su's admission exam reports mild POS, over-talkativeness, IOR circumscribed; pt p/o prn Zyprexa only, slept overnight, in behavioral control and compliant with cares. ON EXAM: presents as slightly pressured but conversant and cooperative; reports falling "in love" recently with long-standing male friend and wanting to connect with him in recent days with her 4 yo daughter out of house and in the care of her mother. However she experienced "negative energy" and the presence of interfering "demons" in the house and with friend's help applied rituals to rid the house of these elements. Mother found her in a disorganized state and brought her to the ED where the acute psychosis was affirmed; TS + for cocaine in the ED. Pt denies using cocaine and said she does drink tea "with coca leaves ". Pt remains cooperative with extending inpt stay to complete work-up and ensure MS stabilization. Will let us call [facility] but not [facility] for collateral intake. ASSESSMENT/PLAN: remains with lessening psychosis amd mild affective instability / no change in meds or management plan; expedite intake including call to pt's father; CP d/w Nursing with emphasis on monitoring MS 10/28/16 11:27 DAY UPDATE: Nuring report states pt's evidencing affective lability to more pronounced degree during second shift yesterday, ? overt psychosis; did remain in behavioral control; anger with mother apparently thematic in disclosures to staff; intake from [facility] suggests chronically depressed self-image, affective instability by hx, serious substance problems with h/o rehab rx pat age 23, authentic workup and dx'd ADD responsive to Adderall; he confirmed pt untreated for some time but may have been continuing of Adderall thru to present. ON EXAM: presents as mildly anxious, tangential, no overt psychosis today but ? persistence of IOR; agreed to trial of Abilify with low-dose start at 2 mg bid; pt has not used prn Zyprexa since admission; pt wants to resume Adderall and I told her we need to reaffirm recent use and who prescriber is - allegedly physician in [facility] system; she also understands her need for psychiatric followup and states she can't afford to reume her [facility] coverage. ASSESSMENT/PLAN: residual lability and circumscribed PI in form of IOR/ begin Abilify 2mg bid; discuss case with Dr. Su at his return tomorrow to attending role; attempt intake from [facility] tomorrow 10/29/16 15:38 DY ' U[DATE/EXAM: Nursing reports pt maintaining behavioral control, c/w cares and meds; relatively isolated but is selectively social and attending some groups/ on exam there is no evidence of psychosis and pt denies thought of demons or negative energy; does also report effective contacts with her mother by phone; feels some urgency to resume her Adderall prescribed by former [facility] psychiatrist which she again states she was taking until few days before this admission - thinks her dysphoric mood is a function of not taking it; is willing to continue the trial of Abilify. 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 INTAKE FROM [facility]: s/w FOC and SOC 2 separate calls; they both describe the pt as chronically affectively unstable and vulnerable to episodes of psychotic disorganization as well as intermittently abusive of various drugs including cocaine; parents while have collaborated with each other to support the patient life-long emotionally and financially; [facility] moved to [place] several years ago when pt decided to move in order to look after her and pt's 11 yo daughter. Pt apparently has lived an idiosyncratic lifestyle with emphasis on following "spiritual" belief systems shared by others in a network of people that do practice rituals and recognize different energy "states". 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 INTAKE FROM [facility]; Pt last seen at [facility] 08/23 and had completed ADHD workup positive for the syndrome; pt has been receiving Adderall 20 mg bid prescribed regularly thru this month at 3 month intervals despite not being seen for 14 months. Other dx's not identified in the [facility] workup; this insurance coverage has been terminated in recent months. ASSESSMENT/PLAN: descriptively improving with resolving psychotic acuity; dx workup incomplete but progressing/ no change in meds or management; will cconsider beginning Adderall 10 mg bid and monitoring MSE; unclear if will continue post DC without assurance of linked definitive DC plan which provides medication management; will need EMMA in include mother in workup and rx planning 10/31/16 15:30 DAY ' UPDATE/EXAM: Nursing reports pt continues to evidence lability, neediness, is over talkative but responsive to redirection and limits; compliant with cares/ meds and attending groups more regularly/ on exam pt is cooperative and conversant; residual POS, over affectualization, minimizing problems; review meds and goals of further stabilization plus need for formulating DC plan involving multiple services and integrating involvement of [facility] and addressing daughter's needs INTAKE/CC: CC reports to me that [facility] has acquired temporary custody of pt's 11 yo daughter without pt being aware; will need to t/w MOC about this action and integrate pt knowing with rx plan and impact on DC planning ASSESSMENT/PLAN: paced improvement with residual affective instability and presumably syndromally active ADD/ will start Adderall 10 mg bid and consider updosing Abilify; attempt speaker phone meeting with FOC and pt tomorrow; bring MOC in for family meeting 11/01/16 15:15 DAY ' UPDATE/EXAM: Nursing reports pt continues to interact with residual lability and needfulness but is incrementally improving, responsive to limits and re- direction, more socially appropriate, c/w cares and meds, using group structures / on direct exam pt appears calmer and less pressured, not overtly psychotic, thought process very concrete and child-like with a here-and now focus and minimally reflective; we do reach FOC for speaker phone discussion; FOC does report the action by MOC obtaining temporary guardianship of pt's daughter - reacting to pt's psychotic decompensation 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 FOC also concerned about pt's vulnerability to drug abuse but did not provide precise details. Pt managed to maintain control/integration thru this discussion, actively verbally engaged her father appropriately and is concerned about losing parental contact with daughter; pt + about involving MOC in family discussions about her DC planning and better understanding the guardianship intervention by MOC. ASSESSMENT/PLAN: improving descriptively in resolving psychotic acuity and stabilizing affectively/ will increase Abilify to 5 mg qam, consider adding mood stabilizer; will expedite family meeting with pt and MOC and begin to formulate definitive DC plan 11/02/16 14:30 DAY ' UPDATE: Nursing reports over last 24 cycle pt slept well, c/w cares and meds, improving social interactions - less intrusive and more conversant; continues to attend group therapies. ON EXAM: relatively calm and conversant on presentation; residual POS and mid tangentiality but appears to be gaining in stabilizing affectively; during session contacted MOC on speaker phone; MOC agreeable to more extended speaker phone family meeting 11/05 after first speaking with me individually; MOC indicated she doesn"t feel ready to visit pt directly over the weekend as her own anger and general distress about daughter is still to troubling to her whic is in contrast to pt's readiness and wish to have visit from her mother. ASSESSMENT/PLAN: progress continuing in stabilizing mental status/ will hold off beginning mood stabilizer until 11/05 and continue thru weekend with meds unchanged and assess again 11/05 - need to ensure tolerance to updosed Abilify given pt's concerns; CP unchanged as d/w Nursing; formulate definitive DC planning and anticipate DC next week pending resolution of tension with MOC and readiness of pt, MOC, and pt's daughter to resume family system operation post DC 11/05/16 13:13 DAY ' UPDATE/EXAM: Nursing reports over weekend pt displayed some DEJUAN and POS/ lability of affect; compliant with cares/meds and present in milieu and groups, some element of intrusiveness./ on direct exam did observe these elements along with more elaboration of overdetermined relationship with man she's known since age 15 and became psychotically attached to in the 3-4 weeks decompensation 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 Medications discussed with pt accepting changes as referenced ASSESSMENT/PLAN: residual psychotic acuity and lability/ will increase Abilify to 7 mg qd and begin Depakote ER trial and 250 mg bid; no change in CP as d/w Nursing; intake and family meeting scheduled for tomorrow @ 1100. 11/06/16 10:30 DAY UPDATE: Nursing reports over last 24 cycle pt has contnued to evidence esidual lability, mild POS, mild intrusiveness socially; also refursed to take Depakote x 2 doses; MOC came to unit in AM and told Nursing she would not be returning for the planned family meeting at 11:00 as she was not ready to face her daughter given her anger toward her and the continued felt stress of dealing with daughter's abusive behaviors. ON EXAM: pt presented as relatively calm but again evidences lability and reactivity about MOC - angry, blaming, stating mother constantly distorts and l ies about her; pt was able to settle down in session with limits and support; agreed to take Depakote; able to discuss how to manage mother interactively; spoke with FOC with pt in the office and clarified his arrival to unit for meeting on 11/09; he also understood the necessity of pt's mother being involved directly in pt's DC planning and finding way to interact with pt directly prio to dC and their resuming contact in the community around the care of pt's daughter. He will speak to pt's mother and attempt to facilitate her cooperation. Pt maintained her self in integrated manner thru my discussion with father and endorsed his support for her treatment. I contacted MOC telephonically and supported her role with care-taking pt's daughter and the importance of her participating in the pt's rx planning prior to DC; MOC was responsive and will reconsider scheduling family meeting this week. ASSESSMENT/PLAN: residual affective instability in context of primary dyadic conflict between pt and her mother; mother has temporary guardianship of pt's 11 yo daughter and will need to stably interact with pt a/w pt visits with her daughter/ reinforce pt's compliance with Depakote trial; continue family work to enable pt and mother to cooperate with DC planning and follow contacts between pt, her mother, and pt's daughter; inpt stay will need extending beyond 11/09 to stabilize pt and family system sufficiently for effective DC to community treatment plan. 11/07/16 13:50 DAY ' UPDATE: Nursing reports pt is c/w meds and cares including Depakote; pt remains to staff observation to evidence mild POS, still somewhat intrusive and tried to hug pt repeatedly during his discharge process this AM. ON EXAM: pesents as relatively calm, cooperative, conversant; described more positive telephonic contact earlier today with mother; talked in further detail about inpt goals fo stabilization for patient, stabilization for family system on an interactive level with need for mother and other family members to have direct contact with her and the Treatment team here; tried to call MOC during session but got no answer; pt reiterated her alliance with inpt rx thru to conclusion and investment in followup with [facility] ASSESSMENT/PLAN: incrementally better b/w residual affective instability/ will reassess med in AM with ? of updosing Abilify and Depakote; CP focus d/w Nursing in Rounds Objective: Vital Signs Temp Pulse Resp BP Pulse Ox 36.7 C 93 16 91/52 L 97 11/07/16 06:00 11/07/16 06:00 11/07/16 06:00 11/07/16 06:00 11/07/16 06:00 ICD10 Worksheet Patient Problems: Problems Problem Status Onset Psychosis Acute
[2016-11-07] MEDS: LORazepam 0.5 MG TAB PO PRN ×2 (17:51→22:06)
[2016-11-07] MEDS: NICOTINE POLACRILEX 2 MG GUM B PRN ×2 (19:04→20:34)
[2016-11-07] MEDS: ARIPiprazole 2 MG TAB PO SCH (22:06)
--- NOTE | 2016-11-08 06:37 | SOAPPROG ---
SOAP Progress Note Assessment/Plan: Assessment: Plan: 10/27/16 12:19 DAY UPDATE: 36 yo SWF admitted via [facility] ED for c/o acute pychotic decompensation emerging over week [employer]; not a psychiatric outpt or on meds [employer]; had been treated as outpt in [facility] as an adult for ADHD and ? Bipolar Disorder and has long-term h/o affective instability, ADHD, ? cocaine abuse. Acutely disorganized and agitated in the ED, received Zyprexa 10 mg IM and slept with improved mental status upon awakening prior to M1 admission to yesterday. Dr Su's admission exam reports mild POS, over-talkativeness, IOR circumscribed; pt p/o prn Zyprexa only, slept overnight, in behavioral control and compliant with cares. ON EXAM: presents as slightly pressured but conversant and cooperative; reports falling "in love" recently with long-standing male friend and wanting to connect with him in recent days with her 4 yo daughter out of house and in the care of her mother. However she experienced "negative energy" and the presence of interfering "demons" in the house and with friend's help applied rituals to rid the house of these elements. Mother found her in a disorganized state and brought her to the ED where the acute psychosis was affirmed; TS + for cocaine in the ED. Pt denies using cocaine and said she does drink tea "with coca leaves ". Pt remains cooperative with extending inpt stay to complete work-up and ensure MS stabilization. Will let us call [facility] but not [facility] for collateral intake. ASSESSMENT/PLAN: remains with lessening psychosis amd mild affective instability / no change in meds or management plan; expedite intake including call to pt's father; CP d/w Nursing with emphasis on monitoring MS 10/28/16 11:27 DAY UPDATE: Nuring report states pt's evidencing affective lability to more pronounced degree during second shift yesterday, ? overt psychosis; did remain in behavioral control; anger with mother apparently thematic in disclosures to staff; intake from [facility] suggests chronically depressed self-image, affective instability by hx, serious substance problems with h/o rehab rx pat age 23, authentic workup and dx'd ADD responsive to Adderall; he confirmed pt untreated for some time but may have been continuing of Adderall thru to present. ON EXAM: presents as mildly anxious, tangential, no overt psychosis today but ? persistence of IOR; agreed to trial of Abilify with low-dose start at 2 mg bid; pt has not used prn Zyprexa since admission; pt wants to resume Adderall and I told her we need to reaffirm recent use and who prescriber is - allegedly physician in [place] system; she also understands her need for psychiatric followup and states she can't afford to reume her [facility] coverage. ASSESSMENT/PLAN: residual lability and circumscribed PI in form of IOR/ begin Abilify 2mg bid; discuss case with Dr. Su at his return tomorrow to attending role; attempt intake from [facility] tomorrow 10/29/16 15:38 DY ' U[DATE/EXAM: Nursing reports pt maintaining behavioral control, c/w cares and meds; relatively isolated but is selectively social and attending some groups/ on exam there is no evidence of psychosis and pt denies thought of demons or negative energy; does also report effective contacts with her mother by phone; feels some urgency to resume her Adderall prescribed by former [facility] psychiatrist which she again states she was taking until few days before this admission - thinks her dysphoric mood is a function of not taking it; is willing to continue the trial of Abilify. ASSESSMENT/PLAN: not evidencing psychosis by exam today, residual but less lability/ will try to confirm use of Adderall and consider speaker phone family conference with mother tomorrow 10/30/16 15:15 DAY ' UPDATE/EXAM: Nursing reports pt continues in to comply with meds/cares,and is in behavioral control, managing ADL'S; does not manifest overt psychosis, is mildly labile, thought process evidences poor insight, entitlement, neediness, but does accept limits; on direct exam pt presents as nonpsychotic, prominent denial/minimization of problems [employer]; continues to deny drug abuse longer term or acutely o/t self-initiated rehab program in her twenties. INTAKE FROM [facility]: s/w FOC and SOC 2 separate calls; they both describe the pt as chronically affectively unstable and vulnerable to episodes of psychotic disorganization as well as intermittently abusive of various drugs including cocaine; parents while have collaborated with each other to support the patient life-long emotionally and financially; [facility] moved to [place] several years ago when pt decided to move in order to look after her and pt's 11 yo daughter. Pt apparently has lived an idiosyncratic lifestyle with emphasis on following "spiritual" belief systems shared by others in a network of people that do practice rituals and recognize different energy "states". Her psychosis [employer] integrated this belief system per intake from [facility] who had flown out from [facility] because of family recognizing pt was decompensating. INTAKE FROM [facility]; Pt last seen at [facility] 08/23 and had completed ADHD workup positive for the syndrome; pt has been receiving Adderall 20 mg bid prescribed regularly thru this month at 3 month intervals despite not being seen for 14 months. Other dx's not identified in the [facility] workup; this insurance coverage has been terminated in recent months. ASSESSMENT/PLAN: descriptively improving with resolving psychotic acuity; dx workup incomplete but progressing/ no change in meds or management; will cconsider beginning Adderall 10 mg bid and monitoring MSE; unclear if will continue post DC without assurance of linked definitive DC plan which provides medication management; will need EMMA in include mother in workup and rx planning 10/31/16 15:30 DAY ' UPDATE/EXAM: Nursing reports pt continues to evidence lability, neediness, is over talkative but responsive to redirection and limits; compliant with cares/ meds and attending groups more regularly/ on exam pt is cooperative and conversant; residual POS, over affectualization, minimizing problems; review meds and goals of further stabilization plus need for formulating DC plan involving multiple services and integrating involvement of [facility] and addressing daughter's needs INTAKE/CC: CC reports to me that [facility] has acquired temporary custody of pt's 11 yo daughter without pt being aware; will need to t/w MOC about this action and integrate pt knowing with rx plan and impact on DC planning ASSESSMENT/PLAN: paced improvement with residual affective instability and presumably syndromally active ADD/ will start Adderall 10 mg bid and consider updosing Abilify; attempt speaker phone meeting with FOC and pt tomorrow; bring MOC in for family meeting 11/01/16 15:15 DAY ' UPDATE/EXAM: Nursing reports pt continues to interact with residual lability and needfulness but is incrementally improving, responsive to limits and re- direction, more socially appropriate, c/w cares and meds, using group structures / on direct exam pt appears calmer and less pressured, not overtly psychotic, thought process very concrete and child-like with a here-and now focus and minimally reflective; we do reach FOC for speaker phone discussion; FOC does report the action by MOC obtaining temporary guardianship of pt's daughter - reacting to pt's psychotic decompensation [employer] and pt's inability to care for her daughter. 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 FOC also concerned about pt's vulnerability to drug abuse but did not provide precise details. Pt managed to maintain control/integration thru this discussion, actively verbally engaged her father appropriately and is concerned about losing parental contact with daughter; pt + about involving MOC in family discussions about her DC planning and better understanding the guardianship intervention by MOC. ASSESSMENT/PLAN: improving descriptively in resolving psychotic acuity and stabilizing affectively/ will increase Abilify to 5 mg qam, consider adding mood stabilizer; will expedite family meeting with pt and MOC and begin to formulate definitive DC plan 11/02/16 14:30 DAY ' UPDATE: Nursing reports over last 24 cycle pt slept well, c/w cares and meds, improving social interactions - less intrusive and more conversant; continues to attend group therapies. ON EXAM: relatively calm and conversant on presentation; residual POS and mid tangentiality but appears to be gaining in stabilizing affectively; during session contacted MOC on speaker phone; MOC agreeable to more extended speaker phone family meeting 11/05 after first speaking with me individually; MOC indicated she doesn"t feel ready to visit pt directly over the weekend as her own anger and general distress about daughter is still to troubling to her whic is in contrast to pt's readiness and wish to have visit from her mother. ASSESSMENT/PLAN: progress continuing in stabilizing mental status/ will hold off beginning mood stabilizer until 11/05 and continue thru weekend with meds unchanged and assess again 11/05 - need to ensure tolerance to updosed Abilify given pt's concerns; CP unchanged as d/w Nursing; formulate definitive DC planning and anticipate DC next week pending resolution of tension with MOC and readiness of pt, MOC, and pt's daughter to resume family system operation post DC 11/05/16 13:13 DAY ' UPDATE/EXAM: Nursing reports over weekend pt displayed some DEJUAN and POS/ lability of affect; compliant with cares/meds and present in milieu and groups, some element of intrusiveness./ on direct exam did observe these elements along with more elaboration of overdetermined relationship with man she's known since age 15 and became psychotically attached to in the 3-4 weeks decompensation [employer]; during brief speaker phone meeting with pt and mother the dyadic tension between both surfaced. Medications discussed with pt accepting changes as referenced ASSESSMENT/PLAN: residual psychotic acuity and lability/ will increase Abilify to 7 mg qd and begin Depakote ER trial and 250 mg bid; no change in CP as d/w Nursing; intake and family meeting scheduled for tomorrow @ 1100. 11/06/16 10:30 DAY UPDATE: Nursing reports over last 24 cycle pt has contnued to evidence esidual lability, mild POS, mild intrusiveness socially; also refursed to take Depakote x 2 doses; MOC came to unit in AM and told Nursing she would not be returning for the planned family meeting at 11:00 as she was not ready to face her daughter given her anger toward her and the continued felt stress of dealing with daughter's abusive behaviors. ON EXAM: pt presented as relatively calm but again evidences lability and reactivity about MOC - angry, blaming, stating mother constantly distorts and l ies about her; pt was able to settle down in session with limits and support; agreed to take Depakote; able to discuss how to manage mother interactively; spoke with FOC with pt in the office and clarified his arrival to unit for meeting on 11/09; he also understood the necessity of pt's mother being involved directly in pt's DC planning and finding way to interact with pt directly prio to dC and their resuming contact in the community around the care of pt's daughter. He will speak to pt's mother and attempt to facilitate her cooperation. Pt maintained her self in integrated manner thru my discussion with father and endorsed his support for her treatment. I contacted MOC telephonically and supported her role with care-taking pt's daughter and the importance of her participating in the pt's rx planning prior to DC; MOC was responsive and will reconsider scheduling family meeting this week. ASSESSMENT/PLAN: residual affective instability in context of primary dyadic conflict between pt and her mother; mother has temporary guardianship of pt's 11 yo daughter and will need to stably interact with pt a/w pt visits with her daughter/ reinforce pt's compliance with Depakote trial; continue family work to enable pt and mother to cooperate with DC planning and follow contacts between pt, her mother, and pt's daughter; inpt stay will need extending beyond 55 to stabilize pt and family system sufficiently for effective DC to community treatment plan. 11/07/16 13:50 DAY UPDATE: Nursing reports pt is c/w meds and cares including Depakote; pt remains to staff observation to evidence mild POS, still somewhat intrusive and tried to hug pt repeatedly during his discharge process this AM. ON EXAM: presents as relatively calm, cooperative, conversant; described more positive telephonic contact earlier today with mother; talked in further detail about inpt goals fo stabilization for patient, stabilization for family system on an interactive level with need for mother and other family members to have direct contact with her and the Treatment team here; tried to call MOC during session but got no answer; pt reiterated her alliance with inpt rx thru to conclusion and investment in followup with [facility]; evidences residual mild POS, minimization of problems with fair degress of denial and distortion at prepsychotic leve ASSESSMENT/PLAN: incrementally better b/w residual affective instability/ will reassess med in AM with ? of updosing Abilify and Depakote; CP focus d/w Nursing in Rounds; call pending back to MOC to again set up onsite family meeting/ 11/08/16 DAY UPDATE: Objective: Vital Signs Temp Pulse Resp BP Pulse Ox 36.7 C 93 16 91/52 L 97 11/07/16 06:00 11/07/16 06:00 11/07/16 06:00 11/07/16 06:00 11/07/16 06:00 ICD10 Worksheet Patient Problems: Problems Problem Status Onset Psychosis Acute
[2016-11-08] MEDS: NICOTINE 14 MG/24 HR PATCH TD SCH (08:56)
[2016-11-08] MEDS: ADDERALL 10 MG TAB PO SCH ×2 (08:56→12:38)
[2016-11-08] MEDS: DIVALPROEX ER 250 MG TAB PO SCH (08:56)
[2016-11-08] MEDS: ARIPiprazole 5 MG TAB PO SCH (08:56)
[2016-11-08] MEDS: NICOTINE POLACRILEX 2 MG GUM B PRN ×3 (10:42→20:56)
--- NOTE | 2016-11-08 15:08 | SOAPPROG ---
SOAP Progress Note Assessment/Plan: Assessment: Plan: 10/27/16 12:19 DAY UPDATE: 36 yo SWF admitted via [facility] ED for c/o acute pychotic decompensation emerging over week DAIRY HUSBANDMAN; not a psychiatric outpt or on meds DAIRY HUSBANDMAN; had been treated as outpt in [facility] as an adult for ADHD and ? Bipolar Disorder and has long-term h/o affective instability, ADHD, ? cocaine abuse. Acutely disorganized and agitated in the ED, received Zyprexa 10 mg IM and slept with improved mental status upon awakening prior to M1 admission to yesterday. Dr Su's admission exam reports mild POS, over-talkativeness, IOR circumscribed; pt p/o prn Zyprexa only, slept overnight, in behavioral control and compliant with cares. ON EXAM: presents as slightly pressured but conversant and cooperative; reports falling "in love" recently with long-standing male friend and wanting to connect with him in recent days with her 4 yo daughter out of house and in the care of her mother. However she experienced "negative energy" and the presence of interfering "demons" in the house and with friend's help applied rituals to rid the house of these elements. Mother found her in a disorganized state and brought her to the ED where the acute psychosis was affirmed; TS + for cocaine in the ED. Pt denies using cocaine and said she does drink tea "with coca leaves ". Pt remains cooperative with extending inpt stay to complete work-up and ensure MS stabilization. Will let us call [facility] but not [facility] for collateral intake. ASSESSMENT/PLAN: remains with lessening psychosis amd mild affective instability / no change in meds or management plan; expedite intake including call to pt's father; CP d/w Nursing with emphasis on monitoring MS 10/28/16 11:27 DAY UPDATE: Nuring report states pt's evidencing affective lability to more pronounced degree during second shift yesterday, ? overt psychosis; did remain in behavioral control; anger with mother apparently thematic in disclosures to staff; intake from [facility] suggests chronically depressed self-image, affective instability by hx, serious substance problems with h/o rehab rx pat age 23, authentic workup and dx'd ADD responsive to Adderall; he confirmed pt untreated for some time but may have been continuing of Adderall thru to present. ON EXAM: presents as mildly anxious, tangential, no overt psychosis today but ? persistence of IOR; agreed to trial of Abilify with low-dose start at 2 mg bid; pt has not used prn Zyprexa since admission; pt wants to resume Adderall and I told her we need to reaffirm recent use and who prescriber is - allegedly physician in [facility] system; she also understands her need for psychiatric followup and states she can't afford to reume her [facility] coverage. ASSESSMENT/PLAN: residual lability and circumscribed PI in form of IOR/ begin Abilify 2mg bid; discuss case with Dr. Su at his return tomorrow to attending role; attempt intake from [facility] tomorrow 10/29/16 15:38 DY ' U[DATE/EXAM: Nursing reports pt maintaining behavioral control, c/w cares and meds; relatively isolated but is selectively social and attending some groups/ on exam there is no evidence of psychosis and pt denies thought of demons or negative energy; does also report effective contacts with her mother by phone; feels some urgency to resume her Adderall prescribed by former [facility] psychiatrist which she again states she was taking until few days before this admission - thinks her dysphoric mood is a function of not taking it; is willing to continue the trial of Abilify. ASSESSMENT/PLAN: not evidencing psychosis by exam today, residual but less lability/ will try to confirm use of Adderall and consider speaker phone family conference with mother tomorrow 10/30/16 15:15 DAY ' UPDATE/EXAM: Nursing reports pt continues in to comply with meds/cares,and is in behavioral control, managing ADL'S; does not manifest overt psychosis, is mildly labile, thought process evidences poor insight, entitlement, neediness, but does accept limits; on direct exam pt presents as nonpsychotic, prominent denial/minimization of problems DAIRY HUSBANDMAN; continues to deny drug abuse longer term or acutely o/t self-initiated rehab program in her twenties. INTAKE FROM [facility]: s/w FOC and SOC 2 separate calls; they both describe the pt as chronically affectively unstable and vulnerable to episodes of psychotic disorganization as well as intermittently abusive of various drugs including cocaine; parents while have collaborated with each other to support the patient life-long emotionally and financially; [facility] moved to [place] several years ago when pt decided to move in order to look after her and pt's 11 yo daughter. Pt apparently has lived an idiosyncratic lifestyle with emphasis on following "spiritual" belief systems shared by others in a network of people that do practice rituals and recognize different energy "states". Her psychosis DAIRY HUSBANDMAN integrated this belief system per intake from [facility] who had flown out from [facility] because of family recognizing pt was decompensating. INTAKE FROM [facility]; Pt last seen at [facility] 08/23 and had completed ADHD workup positive for the syndrome; pt has been receiving Adderall 20 mg bid prescribed regularly thru this month at 3 month intervals despite not being seen for 14 months. Other dx's not identified in the [facility] workup; this insurance coverage has been terminated in recent months. ASSESSMENT/PLAN: descriptively improving with resolving psychotic acuity; dx workup incomplete but progressing/ no change in meds or management; will cconsider beginning Adderall 10 mg bid and monitoring MSE; unclear if will continue post DC without assurance of linked definitive DC plan which provides medication management; will need EMMA in include mother in workup and rx planning 10/31/16 15:30 DAY ' UPDATE/EXAM: Nursing reports pt continues to evidence lability, neediness, is over talkative but responsive to redirection and limits; compliant with cares/ meds and attending groups more regularly/ on exam pt is cooperative and conversant; residual POS, over affectualization, minimizing problems; review meds and goals of further stabilization plus need for formulating DC plan involving multiple services and integrating involvement of [facility] and addressing daughter's needs INTAKE/CC: CC reports to me that [facility] has acquired temporary custody of pt's 11 yo daughter without pt being aware; will need to t/w MOC about this action and integrate pt knowing with rx plan and impact on DC planning ASSESSMENT/PLAN: paced improvement with residual affective instability and presumably syndromally active ADD/ will start Adderall 10 mg bid and consider updosing Abilify; attempt speaker phone meeting with FOC and pt tomorrow; bring MOC in for family meeting 11/01/16 15:15 DAY ' UPDATE/EXAM: Nursing reports pt continues to interact with residual lability and needfulness but is incrementally improving, responsive to limits and re- direction, more socially appropriate, c/w cares and meds, using group structures / on direct exam pt appears calmer and less pressured, not overtly psychotic, thought process very concrete and child-like with a here-and now focus and minimally reflective; we do reach FOC for speaker phone discussion; FOC does report the action by MOC obtaining temporary guardianship of pt's daughter - reacting to pt's psychotic decompensation DAIRY HUSBANDMAN and pt's inability to care for her daughter. 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 FOC also concerned about pt's vulnerability to drug abuse but did not provide precise details. Pt managed to maintain control/integration thru this discussion, actively verbally engaged her father appropriately and is concerned about losing parental contact with daughter; pt + about involving MOC in family discussions about her DC planning and better understanding the guardianship intervention by MOC. ASSESSMENT/PLAN: improving descriptively in resolving psychotic acuity and stabilizing affectively/ will increase Abilify to 5 mg qam, consider adding mood stabilizer; will expedite family meeting with pt and MOC and begin to formulate definitive DC plan 11/02/16 14:30 DAY ' UPDATE: Nursing reports over last 24 cycle pt slept well, c/w cares and meds, improving social interactions - less intrusive and more conversant; continues to attend group therapies. ON EXAM: relatively calm and conversant on presentation; residual POS and mid tangentiality but appears to be gaining in stabilizing affectively; during session contacted MOC on speaker phone; MOC agreeable to more extended speaker phone family meeting 11/05 after first speaking with me individually; MOC indicated she doesn"t feel ready to visit pt directly over the weekend as her own anger and general distress about daughter is still to troubling to her whic is in contrast to pt's readiness and wish to have visit from her mother. ASSESSMENT/PLAN: progress continuing in stabilizing mental status/ will hold off beginning mood stabilizer until 11/05 and continue thru weekend with meds unchanged and assess again 11/05 - need to ensure tolerance to updosed Abilify given pt's concerns; CP unchanged as d/w Nursing; formulate definitive DC planning and anticipate DC next week pending resolution of tension with MOC and readiness of pt, MOC, and pt's daughter to resume family system operation post DC 11/05/16 13:13 DAY ' UPDATE/EXAM: Nursing reports over weekend pt displayed some DEJUAN and POS/ lability of affect; compliant with cares/meds and present in milieu and groups, some element of intrusiveness./ on direct exam did observe these elements along with more elaboration of overdetermined relationship with man she's known since age 15 and became psychotically attached to in the 3-4 weeks decompensation DAIRY HUSBANDMAN; during brief speaker phone meeting with pt and mother the dyadic tension between both surfaced. Medications discussed with pt accepting changes as referenced ASSESSMENT/PLAN: residual psychotic acuity and lability/ will increase Abilify to 7 mg qd and begin Depakote ER trial and 250 mg bid; no change in CP as d/w Nursing; intake and family meeting scheduled for tomorrow @ 1100. 11/06/16 10:30 DAY UPDATE: Nursing reports over last 24 cycle pt has contnued to evidence residual lability, mild POS, mild intrusiveness socially; also refused to take Depakote x 2 doses; MOC came to unit in AM and told Nursing she would not be returning for the planned family meeting at 11:00 as she was not ready to face her daughter given her anger toward her and the continued felt stress of dealing with daughter's abusive behaviors. ON EXAM: pt presented as relatively calm but again evidences lability and reactivity about MOC - angry, blaming, stating mother constantly distorts and l ies about her; pt was able to settle down in session with limits and support; agreed to take Depakote; able to discuss how to manage mother interactively; spoke with FOC with pt in the office and clarified his arrival to unit for meeting on 11/09; he also understood the necessity of pt's mother being involved directly in pt's DC planning and finding way to interact with pt directly prio to dC and their resuming contact in the community around the care of pt's daughter. He will speak to pt's mother and attempt to facilitate her cooperation. Pt maintained her self in integrated manner thru my discussion with father and endorsed his support for her treatment. I contacted [facility] telephonically and supported her role with care-taking pt's daughter and the importance of her participating in the pt's rx planning prior to DC; MOC was responsive and will reconsider scheduling family meeting this week. ASSESSMENT/PLAN: residual affective instability in context of primary dyadic conflict between pt and her mother; mother has temporary guardianship of pt's 11 yo daughter and will need to stably interact with pt a/w pt visits with her daughter/ reinforce pt's compliance with Depakote trial; continue family work to enable pt and mother to cooperate with DC planning and follow contacts between pt, her mother, and pt's daughter; inpt stay will need extending beyond 55 to stabilize pt and family system sufficiently for effective DC to community treatment plan. 11/07/16 13:50 DAY UPDATE: Nursing reports pt is c/w meds and cares including Depakote; pt remains to staff observation to evidence mild POS, still somewhat intrusive and tried to hug pt repeatedly during his discharge process this AM. ON EXAM: presents as relatively calm, cooperative, conversant; described more positive telephonic contact earlier today with mother; talked in further detail about inpt goals for stabilization for patient, stabilization for family system on an interactive level with need for mother and other family members to have direct contact with her and the Treatment team here; tried to call MOC during session but got no answer; pt reiterated her alliance with inpt rx thru to conclusion and investment in followup with [facility]; evidences residual mild POS, minimization of problems with fair degrees of denial and distortion at prepsychotic level ASSESSMENT/PLAN: incrementally better b/w residual affective instability/ will reassess med in AM with ? of updosing Abilify and Depakote; CP focus d/w Nursing in Rounds; call pending back to MOC to again set up onsite family meeting/ 11/08/16 DAY UPDATE: Objective: Vital Signs Temp Pulse Resp BP Pulse Ox 36.7 C 99 16 112/67 97 11/07/16 06:00 11/08/16 09:26 11/08/16 09:26 11/08/16 09:26 11/08/16 09:26 ICD10 Worksheet Patient Problems: Problems Problem Status Onset Psychosis Acute
[2016-11-08] MEDS: LORazepam 0.5 MG TAB PO PRN ×2 (17:40→21:40)
[2016-11-08] MEDS: lamoTRIgine 25 MG TAB PO SCH (20:55)
[2016-11-08] MEDS: ARIPiprazole 2 MG TAB PO SCH (20:55)
--- NOTE | 2016-11-09 06:53 | SOAPPROG ---
SOAP Progress Note Assessment/Plan: Assessment: Plan: 10/27/16 12:19 DAY UPDATE: 36 yo SWF admitted via [facility] ED for c/o acute pychotic decompensation emerging over week [employer]; not a psychiatric outpt or on meds [employer]; had been treated as outpt in [facility] as an adult for ADHD and ? Bipolar Disorder and has long-term h/o affective instability, ADHD, ? cocaine abuse. Acutely disorganized and agitated in the ED, received Zyprexa 10 mg IM and slept with improved mental status upon awakening prior to M1 admission to yesterday. Dr Su's admission exam reports mild POS, over-talkativeness, IOR circumscribed; pt p/o prn Zyprexa only, slept overnight, in behavioral control and compliant with cares. ON EXAM: presents as slightly pressured but conversant and cooperative; reports falling "in love" recently with long-standing male friend and wanting to connect with him in recent days with her 4 yo daughter out of house and in the care of her mother. However she experienced "negative energy" and the presence of interfering "demons" in the house and with friend's help applied rituals to rid the house of these elements. Mother found her in a disorganized state and brought her to the ED where the acute psychosis was affirmed; TS + for cocaine in the ED. Pt denies using cocaine and said she does drink tea "with coca leaves ". Pt remains cooperative with extending inpt stay to complete work-up and ensure MS stabilization. Will let us call [facility] but not [facility] for collateral intake. ASSESSMENT/PLAN: remains with lessening psychosis amd mild affective instability / no change in meds or management plan; expedite intake including call to pt's father; CP d/w Nursing with emphasis on monitoring MS 10/28/16 11:27 DAY UPDATE: Nuring report states pt's evidencing affective lability to more pronounced degree during second shift yesterday, ? overt psychosis; did remain in behavioral control; anger with mother apparently thematic in disclosures to staff; intake from [facility] suggests chronically depressed self-image, affective instability by hx, serious substance problems with h/o rehab rx pat age 23, authentic workup and dx'd ADD responsive to Adderall; he confirmed pt untreated for some time but may have been continuing of Adderall thru to present. ON EXAM: presents as mildly anxious, tangential, no overt psychosis today but ? persistence of IOR; agreed to trial of Abilify with low-dose start at 2 mg bid; pt has not used prn Zyprexa since admission; pt wants to resume Adderall and I told her we need to reaffirm recent use and who prescriber is - allegedly physician in [facility] system; she also understands her need for psychiatric followup and states she can't afford to reume her [facility] coverage. ASSESSMENT/PLAN: residual lability and circumscribed PI in form of IOR/ begin Abilify 2mg bid; discuss case with Dr. Su at his return tomorrow to attending role; attempt intake from [facility] tomorrow 10/29/16 15:38 DY ' U[DATE/EXAM: Nursing reports pt maintaining behavioral control, c/w cares and meds; relatively isolated but is selectively social and attending some groups/ on exam there is no evidence of psychosis and pt denies thought of demons or negative energy; does also report effective contacts with her mother by phone; feels some urgency to resume her Adderall prescribed by former [facility] psychiatrist which she again states she was taking until few days before this admission - thinks her dysphoric mood is a function of not taking it; is willing to continue the trial of Abilify. ASSESSMENT/PLAN: not evidencing psychosis by exam today, residual but less lability/ will try to confirm use of Adderall and consider speaker phone family conference with mother tomorrow 10/30/16 15:15 DAY ' UPDATE/EXAM: Nursing reports pt continues in to comply with meds/cares,and is in behavioral control, managing ADL'S; does not manifest overt psychosis, is mildly labile, thought process evidences poor insight, entitlement, neediness, but does accept limits; on direct exam pt presents as nonpsychotic, prominent denial/minimization of problems [employer]; continues to deny drug abuse longer term or acutely o/t self-initiated rehab program in her twenties. INTAKE FROM [facility]: s/w FOC and SOC 2 separate calls; they both describe the pt as chronically affectively unstable and vulnerable to episodes of psychotic disorganization as well as intermittently abusive of various drugs including cocaine; parents while have collaborated with each other to support the patient life-long emotionally and financially; [facility] moved to [place] several years ago when pt decided to move in order to look after her and pt's 11 yo daughter. Pt apparently has lived an idiosyncratic lifestyle with emphasis on following "spiritual" belief systems shared by others in a network of people that do practice rituals and recognize different energy "states". Her psychosis [employer] integrated this belief system per intake from [facility] who had flown out from [facility] because of family recognizing pt was decompensating. INTAKE FROM [facility]; Pt last seen at [facility] 08/23 and had completed ADHD workup positive for the syndrome; pt has been receiving Adderall 20 mg bid prescribed regularly thru this month at 3 month intervals despite not being seen for 14 months. Other dx's not identified in the [facility] workup; this insurance coverage has been terminated in recent months. ASSESSMENT/PLAN: descriptively improving with resolving psychotic acuity; dx workup incomplete but progressing/ no change in meds or management; will cconsider beginning Adderall 10 mg bid and monitoring MSE; unclear if will continue post DC without assurance of linked definitive DC plan which provides medication management; will need EMMA in include mother in workup and rx planning 10/31/16 15:30 DAY ' UPDATE/EXAM: Nursing reports pt continues to evidence lability, neediness, is over talkative but responsive to redirection and limits; compliant with cares/ meds and attending groups more regularly/ on exam pt is cooperative and conversant; residual POS, over affectualization, minimizing problems; review meds and goals of further stabilization plus need for formulating DC plan involving multiple services and integrating involvement of [facility] and addressing daughter's needs INTAKE/CC: CC reports to me that [facility] has acquired temporary custody of pt's 11 yo daughter without pt being aware; will need to t/w MOC about this action and integrate pt knowing with rx plan and impact on DC planning ASSESSMENT/PLAN: paced improvement with residual affective instability and presumably syndromally active ADD/ will start Adderall 10 mg bid and consider updosing Abilify; attempt speaker phone meeting with FOC and pt tomorrow; bring MOC in for family meeting 11/01/16 15:15 DAY ' UPDATE/EXAM: Nursing reports pt continues to interact with residual lability and needfulness but is incrementally improving, responsive to limits and re- direction, more socially appropriate, c/w cares and meds, using group structures / on direct exam pt appears calmer and less pressured, not overtly psychotic, thought process very concrete and child-like with a here-and now focus and minimally reflective; we do reach FOC for speaker phone discussion; FOC does report the action by MOC obtaining temporary guardianship of pt's daughter - reacting to pt's psychotic decompensation [employer] and pt's inability to care for her daughter. 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 FOC also concerned about pt's vulnerability to drug abuse but did not provide precise details. Pt managed to maintain control/integration thru this discussion, actively verbally engaged her father appropriately and is concerned about losing parental contact with daughter; pt + about involving MOC in family discussions about her DC planning and better understanding the guardianship intervention by MOC. ASSESSMENT/PLAN: improving descriptively in resolving psychotic acuity and stabilizing affectively/ will increase Abilify to 5 mg qam, consider adding mood stabilizer; will expedite family meeting with pt and MOC and begin to formulate definitive DC plan 11/02/16 14:30 DAY ' UPDATE: Nursing reports over last 24 cycle pt slept well, c/w cares and meds, improving social interactions - less intrusive and more conversant; continues to attend group therapies. ON EXAM: relatively calm and conversant on presentation; residual POS and mid tangentiality but appears to be gaining in stabilizing affectively; during session contacted MOC on speaker phone; MOC agreeable to more extended speaker phone family meeting 11/05 after first speaking with me individually; MOC indicated she doesn"t feel ready to visit pt directly over the weekend as her own anger and general distress about daughter is still to troubling to her whic is in contrast to pt's readiness and wish to have visit from her mother. ASSESSMENT/PLAN: progress continuing in stabilizing mental status/ will hold off beginning mood stabilizer until 11/05 and continue thru weekend with meds unchanged and assess again 11/05 - need to ensure tolerance to updosed Abilify given pt's concerns; CP unchanged as d/w Nursing; formulate definitive DC planning and anticipate DC next week pending resolution of tension with MOC and readiness of pt, MOC, and pt's daughter to resume family system operation post DC 11/05/16 13:13 DAY ' UPDATE/EXAM: Nursing reports over weekend pt displayed some DEJUAN and POS/ lability of affect; compliant with cares/meds and present in milieu and groups, some element of intrusiveness./ on direct exam did observe these elements along with more elaboration of overdetermined relationship with man she's known since age 15 and became psychotically attached to in the 3-4 weeks decompensation [employer]; during brief speaker phone meeting with pt and mother the dyadic tension between both surfaced. Medications discussed with pt accepting changes as referenced ASSESSMENT/PLAN: residual psychotic acuity and lability/ will increase Abilify to 7 mg qd and begin Depakote ER trial and 250 mg bid; no change in CP as d/w Nursing; intake and family meeting scheduled for tomorrow @ 1100. 11/06/16 10:30 DAY UPDATE: Nursing reports over last 24 cycle pt has contnued to evidence esidual lability, mild POS, mild intrusiveness socially; also refursed to take Depakote x 2 doses; MOC came to unit in AM and told Nursing she would not be returning for the planned family meeting at 11:00 as she was not ready to face her daughter given her anger toward her and the continued felt stress of dealing with daughter's abusive behaviors. ON EXAM: pt presented as relatively calm but again evidences lability and reactivity about MOC - angry, blaming, stating mother constantly distorts and l ies about her; pt was able to settle down in session with limits and support; agreed to take Depakote; able to discuss how to manage mother interactively; spoke with FOC with pt in the office and clarified his arrival to unit for meeting on 11/09; he also understood the necessity of pt's mother being involved directly in pt's DC planning and finding way to interact with pt directly prio to dC and their resuming contact in the community around the care of pt's daughter. He will speak to pt's mother and attempt to facilitate her cooperation. Pt maintained her self in integrated manner thru my discussion with father and endorsed his support for her treatment. I contacted MOC telephonically and supported her role with care-taking pt's daughter and the importance of her participating in the pt's rx planning prior to DC; MO was responsive and will reconsider scheduling family meeting this week. ASSESSMENT/PLAN: residual affective instability in context of primary dyadic conflict between pt and her mother; mother has temporary guardianship of pt's 11 yo daughter and will need to stably interact with pt a/w pt visits with her daughter/ reinforce pt's compliance with Depakote trial; continue family work to enable pt and mother to cooperate with DC planning and follow contacts between pt, her mother, and pt's daughter; inpt stay will need extending beyond 11/09 to stabilize pt and family system sufficiently for effective DC to community treatment plan. 11/07/16 13:50 DAY UPDATE: Nursing reports pt is c/w meds and cares including Depakote; pt remains to staff observation to evidence mild POS, still somewhat intrusive and tried to hug pt repeatedly during his discharge process this AM. ON EXAM: presents as relatively calm, cooperative, conversant; described more positive telephonic contact earlier today with mother; talked in further detail about inpt goals fo stabilization for patient, stabilization for family system on an interactive level with need for mother and other family members to have direct contact with her and the Treatment team here; tried to call MOC during session but got no answer; pt reiterated her alliance with inpt rx thru to conclusion and investment in followup with [facility]; evidences residual mild POS, minimization of problems with fair degress of denial and distortion at prepsychotic leve ASSESSMENT/PLAN: incrementally better b/w residual affective instability/ will reassess med in AM with ? of updosing Abilify and Depakote; CP focus d/w Nursing in Rounds; call pending back to MOC to again set up onsite family meeting/ 11/08/16 11:00; 14:00 DAY UPDATE: Nursing reports last 24 cycle pt maintained behavioral control; did observe residual lability, POS, mild intrusiveness, no overt psychosis MEETING WITH MOC: emerson presents as attrractive somewhat dramatically dressed adult woman; over-affective emotional expression and perseverative focus about her stress in dealing with pt long-term as well as the 4 week period [employer] that pt decompensated as her infatuation with her fantasied BF overwhelmed her to psychotic proportions; [facility] brought in pipe for smoking drugs , presumed randy leaf material and container she thought had held randy leaves; also brougt 2 envelopes sealed which she said contained printed text messages given to her by close GF of pt - she alleged she hadn"t read them but wanted me to have them; I took the envelopes but [facility] took back the drug items; she calmed with support and did appear to understand the long-term problems of her daughter and characterized the short term decompensation as exceptional as the most severe she'd observed; intake data from [facility] supported pt's mood instability and vulnerability to psychosis under stress, infantilism; also [facility] had awareness that parental support over the years had miranda enabling to pt in unhelpful ways. Objective: Vital Signs Temp Pulse Resp BP Pulse Ox 36.7 C 99 16 112/67 97 11/07/16 06:00 11/08/16 09:26 11/08/16 09:26 11/08/16 09:26 11/08/16 09:26 ICD10 Worksheet Patient Problems: Problems Problem Status Onset Psychosis Acute
--- NOTE | 2016-11-09 07:04 | SOAPPROG ---
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 Bipolar Disorder and has long-term h/o affective instability, ADHD, ? cocaine abuse. Acutely disorganized and agitated in the ED, received Zyprexa 10 mg IM and slept with improved mental status upon awakening prior to M1 admission to yesterday. Dr Su's admission exam reports mild POS, over-talkativeness, IOR circumscribed; pt p/o prn Zyprexa only, slept overnight, in behavioral control and compliant with cares. ON EXAM: presents as slightly pressured but conversant and cooperative; reports falling "in love" recently with long-standing male friend and wanting to connect with him in recent days with her 4 yo daughter out of house and in the care of her mother. However she experienced "negative energy" and the presence of interfering "demons" in the house and with friend's help applied rituals to rid the house of these elements. Mother found her in a disorganized state and brought her to the ED where the acute psychosis was affirmed; TS + for cocaine in the ED. Pt denies using cocaine and said she does drink tea "with coca leaves ". Pt remains cooperative with extending inpt stay to complete work-up and ensure MS stabilization. Will let us call [facility] but not [facility] for collateral intake. ASSESSMENT/PLAN: remains with lessening psychosis amd mild affective instability / no change in meds or management plan; expedite intake including call to pt's father; CP d/w Nursing with emphasis on monitoring MS 10/28/16 11:27 DAY UPDATE: Nuring report states pt's evidencing affective lability to more pronounced degree during second shift yesterday, ? overt psychosis; did remain in behavioral control; anger with mother apparently thematic in disclosures to staff; intake from [facility] suggests chronically depressed self-image, affective instability by hx, serious substance problems with h/o rehab rx pat age 23, authentic workup and dx'd ADD responsive to Adderall; he confirmed pt untreated for some time but may have been continuing of Adderall thru to present. ON EXAM: presents as mildly anxious, tangential, no overt psychosis today but ? persistence of IOR; agreed to trial of Abilify with low-dose start at 2 mg bid; pt has not used prn Zyprexa since admission; pt wants to resume Adderall and I told her we need to reaffirm recent use and who prescriber is - allegedly physician in [facility] [place] system; she also understands her need for psychiatric followup and states she can't afford to reume her [facility] coverage. ASSESSMENT/PLAN: residual lability and circumscribed PI in form of IOR/ begin Abilify 2mg bid; discuss case with Dr. Su at his return tomorrow to attending role; attempt intake from [facility] [place] tomorrow 10/29/16 15:38 DY ' U[DATE/EXAM: Nursing reports pt maintaining behavioral control, c/w cares and meds; relatively isolated but is selectively social and attending some groups/ on exam there is no evidence of psychosis and pt denies thought of demons or negative energy; does also report effective contacts with her mother by phone; feels some urgency to resume her Adderall prescribed by former [facility] psychiatrist which she again states she was taking until few days before this admission - thinks her dysphoric mood is a function of not taking it; is willing to continue the trial of Abilify. 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 INTAKE FROM [facility]: s/w FOC and SOC 2 separate calls; they both describe the pt as chronically affectively unstable and vulnerable to episodes of psychotic disorganization as well as intermittently abusive of various drugs including cocaine; parents while have collaborated with each other to support the patient life-long emotionally and financially; [facility] moved to [place] several years ago when pt decided to move in order to look after her and pt's 11 yo daughter. Pt apparently has lived an idiosyncratic lifestyle with emphasis on following "spiritual" belief systems shared by others in a network of people that do practice rituals and recognize different energy "states". 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 INTAKE FROM [facility]; Pt last seen at [facility] 08/23 and had completed ADHD workup positive for the syndrome; pt has been receiving Adderall 20 mg bid prescribed regularly thru this month at 3 month intervals despite not being seen for 14 months. Other dx's not identified in the [facility] workup; this insurance coverage has been terminated in recent months. ASSESSMENT/PLAN: descriptively improving with resolving psychotic acuity; dx workup incomplete but progressing/ no change in meds or management; will cconsider beginning Adderall 10 mg bid and monitoring MSE; unclear if will continue post DC without assurance of linked definitive DC plan which provides medication management; will need EMMA in include mother in workup and rx planning 10/31/16 15:30 DAY ' UPDATE/EXAM: Nursing reports pt continues to evidence lability, neediness, is over talkative but responsive to redirection and limits; compliant with cares/ meds and attending groups more regularly/ on exam pt is cooperative and conversant; residual POS, over affectualization, minimizing problems; review meds and goals of further stabilization plus need for formulating DC plan involving multiple services and integrating involvement of [facility] and addressing daughter's needs INTAKE/CC: CC reports to me that [facility] has acquired temporary custody of pt's 11 yo daughter without pt being aware; will need to t/w MOC about this action and integrate pt knowing with rx plan and impact on DC planning ASSESSMENT/PLAN: paced improvement with residual affective instability and presumably syndromally active ADD/ will start Adderall 10 mg bid and consider updosing Abilify; attempt speaker phone meeting with FOC and pt tomorrow; bring MOC in for family meeting 11/01/16 15:15 DAY ' UPDATE/EXAM: Nursing reports pt continues to interact with residual lability and needfulness but is incrementally improving, responsive to limits and re- direction, more socially appropriate, c/w cares and meds, using group structures / on direct exam pt appears calmer and less pressured, not overtly psychotic, thought process very concrete and child-like with a here-and now focus and minimally reflective; we do reach FOC for speaker phone discussion; FOC does report the action by MOC obtaining temporary guardianship of pt's daughter - reacting to pt's psychotic decompensation 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 FOC also concerned about pt's vulnerability to drug abuse but did not provide precise details. Pt managed to maintain control/integration thru this discussion, actively verbally engaged her father appropriately and is concerned about losing parental contact with daughter; pt + about involving MOC in family discussions about her DC planning and better understanding the guardianship intervention by MOC. ASSESSMENT/PLAN: improving descriptively in resolving psychotic acuity and stabilizing affectively/ will increase Abilify to 5 mg qam, consider adding mood stabilizer; will expedite family meeting with pt and MOC and begin to formulate definitive DC plan 11/02/16 14:30 DAY ' UPDATE: Nursing reports over last 24 cycle pt slept well, c/w cares and meds, improving social interactions - less intrusive and more conversant; continues to attend group therapies. ON EXAM: relatively calm and conversant on presentation; residual POS and mid tangentiality but appears to be gaining in stabilizing affectively; during session contacted MOC on speaker phone; MOC agreeable to more extended speaker phone family meeting 11/05 after first speaking with me individually; MOC indicated she doesn"t feel ready to visit pt directly over the weekend as her own anger and general distress about daughter is still to troubling to her whic is in contrast to pt's readiness and wish to have visit from her mother. ASSESSMENT/PLAN: progress continuing in stabilizing mental status/ will hold off beginning mood stabilizer until 11/05 and continue thru weekend with meds unchanged and assess again 11/05 - need to ensure tolerance to updosed Abilify given pt's concerns; CP unchanged as d/w Nursing; formulate definitive DC planning and anticipate DC next week pending resolution of tension with MOC and readiness of pt, MOC, and pt's daughter to resume family system operation post DC 11/05/16 13:13 DAY ' UPDATE/EXAM: Nursing reports over weekend pt displayed some DEJUAN and POS/ lability of affect; compliant with cares/meds and present in milieu and groups, some element of intrusiveness./ on direct exam did observe these elements along with more elaboration of overdetermined relationship with man she's known since age 15 and became psychotically attached to in the 3-4 weeks decompensation 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 Medications discussed with pt accepting changes as referenced ASSESSMENT/PLAN: residual psychotic acuity and lability/ will increase Abilify to 7 mg qd and begin Depakote ER trial and 250 mg bid; no change in CP as d/w Nursing; intake and family meeting scheduled for tomorrow @ 1100. 11/06/16 10:30 DAY UPDATE: Nursing reports over last 24 cycle pt has contnued to evidence esidual lability, mild POS, mild intrusiveness socially; also refursed to take Depakote x 2 doses; MOC came to unit in AM and told Nursing she would not be returning for the planned family meeting at 11:00 as she was not ready to face her daughter given her anger toward her and the continued felt stress of dealing with daughter's abusive behaviors. ON EXAM: pt presented as relatively calm but again evidences lability and reactivity about MOC - angry, blaming, stating mother constantly distorts and l ies about her; pt was able to settle down in session with limits and support; agreed to take Depakote; able to discuss how to manage mother interactively; spoke with FOC with pt in the office and clarified his arrival to unit for meeting on 11/09; he also understood the necessity of pt's mother being involved directly in pt's DC planning and finding way to interact with pt directly prio to dC and their resuming contact in the community around the care of pt's daughter. He will speak to pt's mother and attempt to facilitate her cooperation. Pt maintained her self in integrated manner thru my discussion with father and endorsed his support for her treatment. I contacted MOC telephonically and supported her role with care-taking pt's daughter and the importance of her participating in the pt's rx planning prior to DC; MOC was responsive and will reconsider scheduling family meeting this week. ASSESSMENT/PLAN: residual affective instability in context of primary dyadic conflict between pt and her mother; mother has temporary guardianship of pt's 11 yo daughter and will need to stably interact with pt a/w pt visits with her daughter/ reinforce pt's compliance with Depakote trial; continue family work to enable pt and mother to cooperate with DC planning and follow contacts between pt, her mother, and pt's daughter; inpt stay will need extending beyond 11/09 to stabilize pt and family system sufficiently for effective DC to community treatment plan. 11/07/16 13:50 DAY UPDATE: Nursing reports pt is c/w meds and cares including Depakote; pt remains to staff observation to evidence mild POS, still somewhat intrusive and tried to hug pt repeatedly during his discharge process this AM. ON EXAM: presents as relatively calm, cooperative, conversant; described more positive telephonic contact earlier today with mother; talked in further detail about inpt goals fo stabilization for patient, stabilization for family system on an interactive level with need for mother and other family members to have direct contact with her and the Treatment team here; tried to call MOC during session but got no answer; pt reiterated her alliance with inpt rx thru to conclusion and investment in followup with [facility]; evidences residual mild POS, minimization of problems with fair degress of denial and distortion at prepsychotic leve ASSESSMENT/PLAN: incrementally better b/w residual affective instability/ will reassess med in AM with ? 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 as her infatuation with her fantasied BF overwhelmed her to psychotic proportions; MOC brought in pipe for smoking drugs, presumed randy leaf material and container she thought had held randy leaves; also brought 2 envelopes sealed which she said contained printed text messages given to her by close GF of pt - she alleged she hadn't read them but wanted me to have them; I took the envelopes but [facility] took back the drug items; she calmed with support and did appear to understand the long-term problems of her daughter and characterized the short term decompensation as the most severe she'd observed; intake data from [facility] supported pt's mood instability and vulnerability to psychosis under stress, infantilism; also [facility] had awareness that parental support over the years had miranda enabling to pt in unhelpful ways. Temporary guardianship discussed including how to invole pt in contacts with daughter. ON EXAM: Pt seen later in day and was not present in meeting with mother; presented as nonpsychotic, mildly labile; im;proved capactiy to self-observe and reflect with direction; syndromal update, medications, need for stabilization of pt/mother dyad, upcoming visit from father tomorrow all covered in session; pt c/o mindfll dulling with the Depakote "just like when I took [place]; agreed to switch pt to Lamictal trial and taper off [place] as well as increase Abilify to 5 mg bid. ASSESSMENT/PLAN: residual affective instability; is improving as is mother's involvement in cooperating with stabilizing relationship with pt prior to DC/ begin Lamictal 25 mg qd and taper off Depakote; increase Abilify to 5 mg bid; CP applied as d/w Nursing in R[place]; anticipate family meeting tomorrow with pt and father; inpt stay extended with DC anticipated 11/13 Objective: Vital Signs Temp Pulse Resp BP Pulse Ox 36.7 C 99 16 112/67 97 11/07/16 06:00 11/08/16 09:26 11/08/16 09:26 11/08/16 09:26 11/08/16 09:26 ICD10 Worksheet Patient Problems: Problems Problem Status Onset Psychosis Acute
[2016-11-09] MEDS: NICOTINE 14 MG/24 HR PATCH TD SCH (08:58)
[2016-11-09] MEDS: NICOTINE POLACRILEX 2 MG GUM B PRN ×3 (08:58→19:02)
[2016-11-09] MEDS ORDERED: DIVALPROEX ER 250 MG TAB PO SCH (09:00)
[2016-11-09] MEDS: ADDERALL 10 MG TAB PO SCH ×2 (09:06→12:36)
[2016-11-09] MEDS: ARIPiprazole 5 MG TAB PO SCH ×2 (09:06→21:09)
--- NOTE | 2016-11-09 12:05 | SOAPPROG ---
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 Bipolar Disorder and has long-term h/o affective instability, ADHD, ? cocaine abuse. Acutely disorganized and agitated in the ED, received Zyprexa 10 mg IM and slept with improved mental status upon awakening prior to M1 admission to yesterday. Dr Su's admission exam reports mild POS, over-talkativeness, IOR circumscribed; pt p/o prn Zyprexa only, slept overnight, in behavioral control and compliant with cares. ON EXAM: presents as slightly pressured but conversant and cooperative; reports falling "in love" recently with long-standing male friend and wanting to connect with him in recent days with her 4 yo daughter out of house and in the care of her mother. However she experienced "negative energy" and the presence of interfering "demons" in the house and with friend's help applied rituals to rid the house of these elements. Mother found her in a disorganized state and brought her to the ED where the acute psychosis was affirmed; TS + for cocaine in the ED. Pt denies using cocaine and said she does drink tea "with coca leaves ". Pt remains cooperative with extending inpt stay to complete work-up and ensure MS stabilization. Will let us call [facility] but not [facility] for collateral intake. ASSESSMENT/PLAN: remains with lessening psychosis amd mild affective instability / no change in meds or management plan; expedite intake including call to pt's father; CP d/w Nursing with emphasis on monitoring MS 10/28/16 11:27 DAY UPDATE: Nuring report states pt's evidencing affective lability to more pronounced degree during second shift yesterday, ? overt psychosis; did remain in behavioral control; anger with mother apparently thematic in disclosures to staff; intake from [facility] suggests chronically depressed self-image, affective instability by hx, serious substance problems with h/o rehab rx pat age 23, authentic workup and dx'd ADD responsive to Adderall; he confirmed pt untreated for some time but may have been continuing of Adderall thru to present. ON EXAM: presents as mildly anxious, tangential, no overt psychosis today but ? persistence of IOR; agreed to trial of Abilify with low-dose start at 2 mg bid; pt has not used prn Zyprexa since admission; pt wants to resume Adderall and I told her we need to reaffirm recent use and who prescriber is - allegedly physician in [facility] system; she also understands her need for psychiatric followup and states she can't afford to reume her [facility] coverage. ASSESSMENT/PLAN: residual lability and circumscribed PI in form of IOR/ begin Abilify 2mg bid; discuss case with Dr. Su at his return tomorrow to attending role; attempt intake from [facility] tomorrow 10/29/16 15:38 DY ' U[DATE/EXAM: Nursing reports pt maintaining behavioral control, c/w cares and meds; relatively isolated but is selectively social and attending some groups/ on exam there is no evidence of psychosis and pt denies thought of demons or negative energy; does also report effective contacts with her mother by phone; feels some urgency to resume her Adderall prescribed by former [facility] psychiatrist which she again states she was taking until few days before this admission - thinks her dysphoric mood is a function of not taking it; is willing to continue the trial of Abilify. 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 INTAKE FROM [facility]: s/w FOC and SOC 2 separate calls; they both describe the pt as chronically affectively unstable and vulnerable to episodes of psychotic disorganization as well as intermittently abusive of various drugs including cocaine; parents while have collaborated with each other to support the patient life-long emotionally and financially; [facility] moved to [place] several years ago when pt decided to move in order to look after her and pt's 11 yo daughter. Pt apparently has lived an idiosyncratic lifestyle with emphasis on following "spiritual" belief systems shared by others in a network of people that do practice rituals and recognize different energy "states". 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 INTAKE FROM [facility]; Pt last seen at [facility] 08/23 and had completed ADHD workup positive for the syndrome; pt has been receiving Adderall 20 mg bid prescribed regularly thru this month at 3 month intervals despite not being seen for 14 months. Other dx's not identified in the [facility] workup; this insurance coverage has been terminated in recent months. ASSESSMENT/PLAN: descriptively improving with resolving psychotic acuity; dx workup incomplete but progressing/ no change in meds or management; will cconsider beginning Adderall 10 mg bid and monitoring MSE; unclear if will continue post DC without assurance of linked definitive DC plan which provides medication management; will need [facility]MA in include mother in workup and rx planning 10/31/16 15:30 DAY ' UPDATE/EXAM: Nursing reports pt continues to evidence lability, neediness, is over talkative but responsive to redirection and limits; compliant with cares/ meds and attending groups more regularly/ on exam pt is cooperative and conversant; residual POS, over affectualization, minimizing problems; review meds and goals of further stabilization plus need for formulating DC plan involving multiple services and integrating involvement of [facility] and addressing daughter's needs INTAKE/CC: CC reports to me that [facility] has acquired temporary custody of pt's 11 yo daughter without pt being aware; will need to t/w MOC about this action and integrate pt knowing with rx plan and impact on DC planning ASSESSMENT/PLAN: paced improvement with residual affective instability and presumably syndromally active ADD/ will start Adderall 10 mg bid and consider updosing Abilify; attempt speaker phone meeting with FOC and pt tomorrow; bring MOC in for family meeting 11/01/16 15:15 DAY ' UPDATE/EXAM: Nursing reports pt continues to interact with residual lability and needfulness but is incrementally improving, responsive to limits and re- direction, more socially appropriate, c/w cares and meds, using group structures / on direct exam pt appears calmer and less pressured, not overtly psychotic, thought process very concrete and child-like with a here-and now focus and minimally reflective; we do reach FOC for speaker phone discussion; FOC does report the action by MOC obtaining temporary guardianship of pt's daughter - reacting to pt's psychotic decompensation 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 FOC also concerned about pt's vulnerability to drug abuse but did not provide precise details. Pt managed to maintain control/integration thru this discussion, actively verbally engaged her father appropriately and is concerned about losing parental contact with daughter; pt + about involving MOC in family discussions about her DC planning and better understanding the guardianship intervention by MOC. ASSESSMENT/PLAN: improving descriptively in resolving psychotic acuity and stabilizing affectively/ will increase Abilify to 5 mg qam, consider adding mood stabilizer; will expedite family meeting with pt and MOC and begin to formulate definitive DC plan 11/02/16 14:30 DAY ' UPDATE: Nursing reports over last 24 cycle pt slept well, c/w cares and meds, improving social interactions - less intrusive and more conversant; continues to attend group therapies. ON EXAM: relatively calm and conversant on presentation; residual POS and mid tangentiality but appears to be gaining in stabilizing affectively; during session contacted MOC on speaker phone; MOC agreeable to more extended speaker phone family meeting 11/05 after first speaking with me individually; MOC indicated she doesn"t feel ready to visit pt directly over the weekend as her own anger and general distress about daughter is still to troubling to her whic is in contrast to pt's readiness and wish to have visit from her mother. ASSESSMENT/PLAN: progress continuing in stabilizing mental status/ will hold off beginning mood stabilizer until 11/05 and continue thru weekend with meds unchanged and assess again 11/05 - need to ensure tolerance to updosed Abilify given pt's concerns; CP unchanged as d/w Nursing; formulate definitive DC planning and anticipate DC next week pending resolution of tension with MOC and readiness of pt, MOC, and pt's daughter to resume family system operation post DC 11/05/16 13:13 DAY ' UPDATE/EXAM: Nursing reports over weekend pt displayed some DEJUAN and POS/ lability of affect; compliant with cares/meds and present in milieu and groups, some element of intrusiveness./ on direct exam did observe these elements along with more elaboration of overdetermined relationship with man she's known since age 15 and became psychotically attached to in the 3-4 weeks decompensation [employer]LECTR[employer] 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 Medications discussed with pt accepting changes as referenced ASSESSMENT/PLAN: residual psychotic acuity and lability/ will increase Abilify to 7 mg qd and begin Depakote ER trial and 250 mg bid; no change in CP as d/w Nursing; intake and family meeting scheduled for tomorrow @ 1100. 11/06/16 10:30 DAY UPDATE: Nursing reports over last 24 cycle pt has contnued to evidence residual lability, mild POS, mild intrusiveness socially; also refused to take Depakote x 2 doses; MOC came to unit in AM and told Nursing she would not be returning for the planned family meeting at 11:00 as she was not ready to face her daughter given her anger toward her and the continued felt stress of dealing with daughter's abusive behaviors. ON EXAM: pt presented as relatively calm but again evidences lability and reactivity about MOC - angry, blaming, stating mother constantly distorts and l ies about her; pt was able to settle down in session with limits and support; agreed to take Depakote; able to discuss how to manage mother interactively; spoke with FOC with pt in the office and clarified his arrival to unit for meeting on 11/09; he also understood the necessity of pt's mother being involved directly in pt's DC planning and finding way to interact with pt directly prio to dC and their resuming contact in the community around the care of pt's daughter. He will speak to pt's mother and attempt to facilitate her cooperation. Pt maintained her self in integrated manner thru my discussion with father and endorsed his support for her treatment. I contacted [facility] telephonically and supported her role with care-taking pt's daughter and the importance of her participating in the pt's rx planning prior to DC; MOC was responsive and will reconsider scheduling family meeting this week. ASSESSMENT/PLAN: residual affective instability in context of primary dyadic conflict between pt and her mother; mother has temporary guardianship of pt's 11 yo daughter and will need to stably interact with pt a/w pt visits with her daughter/ reinforce pt's compliance with Depakote trial; continue family work to enable pt and mother to cooperate with DC planning and follow contacts between pt, her mother, and pt's daughter; inpt stay will need extending beyond 55 to stabilize pt and family system sufficiently for effective DC to community treatment plan. 11/07/16 13:50 DAY UPDATE: Nursing reports pt is c/w meds and cares including Depakote; pt remains to staff observation to evidence mild POS, still somewhat intrusive and tried to hug pt repeatedly during his discharge process this AM. ON EXAM: presents as relatively calm, cooperative, conversant; described more positive telephonic contact earlier today with mother; talked in further detail about inpt goals for stabilization for patient, stabilization for family system on an interactive level with need for mother and other family members to have direct contact with her and the Treatment team here; tried to call MOC during session but got no answer; pt reiterated her alliance with inpt rx thru to conclusion and investment in followup with [facility]; evidences residual mild POS, minimization of problems with fair degrees of denial and distortion at prepsychotic level ASSESSMENT/PLAN: incrementally better b/w residual affective instability/ will reassess med in AM with ? of updosing Abilify and Depakote; CP focus d/w Nursing in Rounds; call pending back to MOC to again set up onsite family meeting/ 11/08/16 DAY UPDATE: Objective: Vital Signs Temp Pulse Resp BP Pulse Ox 36.7 C 99 16 112/67 97 11/07/16 06:00 11/08/16 09:26 11/08/16 09:26 11/08/16 09:26 11/08/16 09:26 ICD10 Worksheet Patient Problems: Problems Problem Status Onset Psychosis Acute
--- NOTE | 2016-11-09 12:15 | SOAPPROG ---
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 Bipolar Disorder and has long-term h/o affective instability, ADHD, ? cocaine abuse. Acutely disorganized and agitated in the ED, received Zyprexa 10 mg IM and slept with improved mental status upon awakening prior to M1 admission to yesterday. Dr Su's admission exam reports mild POS, over-talkativeness, IOR circumscribed; pt p/o prn Zyprexa only, slept overnight, in behavioral control and compliant with cares. ON EXAM: presents as slightly pressured but conversant and cooperative; reports falling "in love" recently with long-standing male friend and wanting to connect with him in recent days with her 4 yo daughter out of house and in the care of her mother. However she experienced "negative energy" and the presence of interfering "demons" in the house and with friend's help applied rituals to rid the house of these elements. Mother found her in a disorganized state and brought her to the ED where the acute psychosis was affirmed; TS + for cocaine in the ED. Pt denies using cocaine and said she does drink tea "with coca leaves ". Pt remains cooperative with extending inpt stay to complete work-up and ensure MS stabilization. Will let us call [facility] but not [facility] for collateral intake. ASSESSMENT/PLAN: remains with lessening psychosis amd mild affective instability / no change in meds or management plan; expedite intake including call to pt's father; CP d/w Nursing with emphasis on monitoring MS 10/28/16 11:27 DAY UPDATE: Nuring report states pt's evidencing affective lability to more pronounced degree during second shift yesterday, ? overt psychosis; did remain in behavioral control; anger with mother apparently thematic in disclosures to staff; intake from [facility] suggests chronically depressed self-image, affective instability by hx, serious substance problems with h/o rehab rx pat age 23, authentic workup and dx'd ADD responsive to Adderall; he confirmed pt untreated for some time but may have been continuing of Adderall thru to present. ON EXAM: presents as mildly anxious, tangential, no overt psychosis today but ? persistence of IOR; agreed to trial of Abilify with low-dose start at 2 mg bid; pt has not used prn Zyprexa since admission; pt wants to resume Adderall and I told her we need to reaffirm recent use and who prescriber is - allegedly physician in [facility] system; she also understands her need for psychiatric followup and states she can't afford to reume her [facility] coverage. ASSESSMENT/PLAN: residual lability and circumscribed PI in form of IOR/ begin Abilify 2mg bid; discuss case with Dr. Su at his return tomorrow to attending role; attempt intake from [facility] tomorrow 10/29/16 15:38 DY ' U[DATE/EXAM: Nursing reports pt maintaining behavioral control, c/w cares and meds; relatively isolated but is selectively social and attending some groups/ on exam there is no evidence of psychosis and pt denies thought of demons or negative energy; does also report effective contacts with her mother by phone; feels some urgency to resume her Adderall prescribed by former [facility] psychiatrist which she again states she was taking until few days before this admission - thinks her dysphoric mood is a function of not taking it; is willing to continue the trial of Abilify. 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 INTAKE FROM [facility]: s/w FOC and SOC 2 separate calls; they both describe the pt as chronically affectively unstable and vulnerable to episodes of psychotic disorganization as well as intermittently abusive of various drugs including cocaine; parents while have collaborated with each other to support the patient life-long emotionally and financially; [facility] moved to [place] several years ago when pt decided to move in order to look after her and pt's 11 yo daughter. Pt apparently has lived an idiosyncratic lifestyle with emphasis on following "spiritual" belief systems shared by others in a network of people that do practice rituals and recognize different energy "states". Her psychosis ENGINEERING ANALYST integrated this belief system per intake from [facility] who had flown out from [facility] because of family recognizing pt was decompensating. INTAKE FROM [facility]; Pt last seen at [facility] 08/23 and had completed ADHD workup positive for the syndrome; pt has been receiving Adderall 20 mg bid prescribed regularly thru this month at 3 month intervals despite not being seen for 14 months. Other dx's not identified in the [facility] workup; this insurance coverage has been terminated in recent months. ASSESSMENT/PLAN: descriptively improving with resolving psychotic acuity; dx workup incomplete but progressing/ no change in meds or management; will cconsider beginning Adderall 10 mg bid and monitoring MSE; unclear if will continue post DC without assurance of linked definitive DC plan which provides medication management; will need EMMA in include mother in workup and rx planning 10/31/16 15:30 DAY ' UPDATE/EXAM: Nursing reports pt continues to evidence lability, neediness, is over talkative but responsive to redirection and limits; compliant with cares/ meds and attending groups more regularly/ on exam pt is cooperative and conversant; residual POS, over affectualization, minimizing problems; review meds and goals of further stabilization plus need for formulating DC plan involving multiple services and integrating involvement of [facility] and addressing daughter's needs INTAKE/CC: CC reports to me that [facility] has acquired temporary custody of pt's 11 yo daughter without pt being aware; will need to t/w MOC about this action and integrate pt knowing with rx plan and impact on DC planning ASSESSMENT/PLAN: paced improvement with residual affective instability and presumably syndromally active ADD/ will start Adderall 10 mg bid and consider updosing Abilify; attempt speaker phone meeting with FOC and pt tomorrow; bring MOC in for family meeting 11/01/16 15:15 DAY ' UPDATE/EXAM: Nursing reports pt continues to interact with residual lability and needfulness but is incrementally improving, responsive to limits and re- direction, more socially appropriate, c/w cares and meds, using group structures / on direct exam pt appears calmer and less pressured, not overtly psychotic, thought process very concrete and child-like with a here-and now focus and minimally reflective; we do reach FOC for speaker phone discussion; FOC does report the action by MOC obtaining temporary guardianship of pt's daughter - reacting to pt's psychotic decompensation ENGINEERING ANALYST and pt's inability to care for her daughter. 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 FOC also concerned about pt's vulnerability to drug abuse but did not provide precise details. Pt managed to maintain control/integration thru this discussion, actively verbally engaged her father appropriately and is concerned about losing parental contact with daughter; pt + about involving MOC in family discussions about her DC planning and better understanding the guardianship intervention by MOC. ASSESSMENT/PLAN: improving descriptively in resolving psychotic acuity and stabilizing affectively/ will increase Abilify to 5 mg qam, consider adding mood stabilizer; will expedite family meeting with pt and MOC and begin to formulate definitive DC plan 11/02/16 14:30 DAY ' UPDATE: Nursing reports over last 24 cycle pt slept well, c/w cares and meds, improving social interactions - less intrusive and more conversant; continues to attend group therapies. ON EXAM: relatively calm and conversant on presentation; residual POS and mid tangentiality but appears to be gaining in stabilizing affectively; during session contacted MOC on speaker phone; MOC agreeable to more extended speaker phone family meeting 11/05 after first speaking with me individually; MOC indicated she doesn"t feel ready to visit pt directly over the weekend as her own anger and general distress about daughter is still to troubling to her whic is in contrast to pt's readiness and wish to have visit from her mother. ASSESSMENT/PLAN: progress continuing in stabilizing mental status/ will hold off beginning mood stabilizer until 11/05 and continue thru weekend with meds unchanged and assess again 11/05 - need to ensure tolerance to updosed Abilify given pt's concerns; CP unchanged as d/w Nursing; formulate definitive DC planning and anticipate DC next week pending resolution of tension with MOC and readiness of pt, MOC, and pt's daughter to resume family system operation post DC 11/05/16 13:13 DAY ' UPDATE/EXAM: Nursing reports over weekend pt displayed some DEJUAN and POS/ lability of affect; compliant with cares/meds and present in milieu and groups, some element of intrusiveness./ on direct exam did observe these elements along with more elaboration of overdetermined relationship with man she's known since age 15 and became psychotically attached to in the 3-4 weeks decompensation ENGINEERING 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 Medications discussed with pt accepting changes as referenced ASSESSMENT/PLAN: residual psychotic acuity and lability/ will increase Abilify to 7 mg qd and begin Depakote ER trial and 250 mg bid; no change in CP as d/w Nursing; intake and family meeting scheduled for tomorrow @ 1100. 11/06/16 10:30 DAY UPDATE: Nursing reports over last 24 cycle pt has contnued to evidence residual lability, mild POS, mild intrusiveness socially; also refused to take Depakote x 2 doses; MOC came to unit in AM and told Nursing she would not be returning for the planned family meeting at 11:00 as she was not ready to face her daughter given her anger toward her and the continued felt stress of dealing with daughter's abusive behaviors. ON EXAM: pt presented as relatively calm but again evidences lability and reactivity about MOC - angry, blaming, stating mother constantly distorts and l ies about her; pt was able to settle down in session with limits and support; agreed to take Depakote; able to discuss how to manage mother interactively; spoke with FOC with pt in the office and clarified his arrival to unit for meeting on 11/09; he also understood the necessity of pt's mother being involved directly in pt's DC planning and finding way to interact with pt directly prio to dC and their resuming contact in the community around the care of pt's daughter. He will speak to pt's mother and attempt to facilitate her cooperation. Pt maintained her self in integrated manner thru my discussion with father and endorsed his support for her treatment. I contacted [facility] telephonically and supported her role with care-taking pt's daughter and the importance of her participating in the pt's rx planning prior to DC; MOC was responsive and will reconsider scheduling family meeting this week. ASSESSMENT/PLAN: residual affective instability in context of primary dyadic conflict between pt and her mother; mother has temporary guardianship of pt's 11 yo daughter and will need to stably interact with pt a/w pt visits with her daughter/ reinforce pt's compliance with Depakote trial; continue family work to enable pt and mother to cooperate with DC planning and follow contacts between pt, her mother, and pt's daughter; inpt stay will need extending beyond 11/09 to stabilize pt and family system sufficiently for effective DC to community treatment plan. 11/07/16 13:50 DAY UPDATE: Nursing reports pt is c/w meds and cares including Depakote; pt remains to staff observation to evidence mild POS, still somewhat intrusive and tried to hug pt repeatedly during his discharge process this AM. ON EXAM: presents as relatively calm, cooperative, conversant; described more positive telephonic contact earlier today with mother; talked in further detail about inpt goals for stabilization for patient, stabilization for family system on an interactive level with need for mother and other family members to have direct contact with her and the Treatment team here; tried to call MOC during session but got no answer; pt reiterated her alliance with inpt rx thru to conclusion and investment in followup with [facility]; evidences residual mild POS, minimization of problems with fair degrees of denial and distortion at prepsychotic level ASSESSMENT/PLAN: incrementally better b/w residual affective instability/ will reassess med in AM with ? of updosing Abilify and Depakote; CP focus d/w Nursing in Rounds; call pending back to MOC to again set up onsite family meeting/ 11/08/16 DAY UPDATE: SEE PROGRESS NOTE 11/0811/09/16 12:08 DAY 16 UPDATE: Nursing reports over last 24 hour cycle that pt is making progress in affective stabilization, c/w cares and meds including starting the lamictal dosing; also appears less intrusive and more appropriate in social interactions ON EXAM: presents as calmer, in more modulated control of emotions in using conversant mode; focus on syndromal update, transition from Depakote to Lamictal, remaining goals for in treatment course with tentative DC for 11/13; discussed focus of upcoming family meeting with FOC later into today ASSESSMENT/PLAN: stabilizing course continues/ dc Depakote after AM dose, no other meds changes over weekend, cp d/w Nursing Objective: Vital Signs Temp Pulse Resp BP Pulse Ox 36.7 C 99 16 112/67 97 11/07/16 06:00 11/08/16 09:26 11/08/16 09:26 11/08/16 09:26 11/08/16 09:26 ICD10 Worksheet Patient Problems: Problems Problem Status Onset Psychosis Acute
--- NOTE | 2016-11-09 17:07 | SOAPPROG ---
SOAP Progress Note Assessment/Plan: Assessment: Plan: 10/27/16 12:19 DAY UPDATE: 36 yo SWF admitted via [facility] ED for c/o acute pychotic decompensation emerging over week [employer]; not a psychiatric outpt or on meds [employer]; had been treated as outpt in [facility] as an adult for ADHD and ? Bipolar Disorder and has long-term h/o affective instability, ADHD, ? cocaine abuse. Acutely disorganized and agitated in the ED, received Zyprexa 10 mg IM and slept with improved mental status upon awakening prior to M1 admission to yesterday. Dr Su's admission exam reports mild POS, over-talkativeness, IOR circumscribed; pt p/o prn Zyprexa only, slept overnight, in behavioral control and compliant with cares. ON EXAM: presents as slightly pressured but conversant and cooperative; reports falling "in love" recently with long-standing male friend and wanting to connect with him in recent days with her 4 yo daughter out of house and in the care of her mother. However she experienced "negative energy" and the presence of interfering "demons" in the house and with friend's help applied rituals to rid the house of these elements. Mother found her in a disorganized state and brought her to the ED where the acute psychosis was affirmed; TS + for cocaine in the ED. Pt denies using cocaine and said she does drink tea "with coca leaves ". Pt remains cooperative with extending inpt stay to complete work-up and ensure MS stabilization. Will let us call [facility] but not [facility] for collateral intake. ASSESSMENT/PLAN: remains with lessening psychosis amd mild affective instability / no change in meds or management plan; expedite intake including call to pt's father; CP d/w Nursing with emphasis on monitoring MS 10/28/16 11:27 DAY UPDATE: Nuring report states pt's evidencing affective lability to more pronounced degree during second shift yesterday, ? overt psychosis; did remain in behavioral control; anger with mother apparently thematic in disclosures to staff; intake from [facility] suggests chronically depressed self-image, affective instability by hx, serious substance problems with h/o rehab rx pat age 23, authentic workup and dx'd ADD responsive to Adderall; he confirmed pt untreated for some time but may have been continuing of Adderall thru to present. ON EXAM: presents as mildly anxious, tangential, no overt psychosis today but ? persistence of IOR; agreed to trial of Abilify with low-dose start at 2 mg bid; pt has not used prn Zyprexa since admission; pt wants to resume Adderall and I told her we need to reaffirm recent use and who prescriber is - allegedly physician in [place] system; she also understands her need for psychiatric followup and states she can't afford to reume her [place] coverage. ASSESSMENT/PLAN: residual lability and circumscribed PI in form of IOR/ begin Abilify 2mg bid; discuss case with Dr. Su at his return tomorrow to attending role; attempt intake from [place] tomorrow 10/29/16 15:38 DY ' U[DATE/EXAM: Nursing reports pt maintaining behavioral control, c/w cares and meds; relatively isolated but is selectively social and attending some groups/ on exam there is no evidence of psychosis and pt denies thought of demons or negative energy; does also report effective contacts with her mother by phone; feels some urgency to resume her Adderall prescribed by former [place] psychiatrist which she again states she was taking until few days before this admission - thinks her dysphoric mood is a function of not taking it; is willing to continue the trial of Abilify. ASSESSMENT/PLAN: not evidencing psychosis by exam today, residual but less lability/ will try to confirm use of Adderall and consider speaker phone family conference with mother tomorrow 10/30/16 15:15 DAY ' UPDATE/EXAM: Nursing reports pt continues in to comply with meds/cares,and is in behavioral control, managing ADL'S; does not manifest overt psychosis, is mildly labile, thought process evidences poor insight, entitlement, neediness, but does accept limits; on direct exam pt presents as nonpsychotic, prominent denial/minimization of problems [employer]; continues to deny drug abuse longer term or acutely o/t self-initiated rehab program in her twenties. INTAKE FROM [facility]: s/w FOC and SOC 2 separate calls; they both describe the pt as chronically affectively unstable and vulnerable to episodes of psychotic disorganization as well as intermittently abusive of various drugs including cocaine; parents while have collaborated with each other to support the patient life-long emotionally and financially; [facility] moved to [place] several years ago when pt decided to move in order to look after her and pt's 11 yo daughter. Pt apparently has lived an idiosyncratic lifestyle with emphasis on following "spiritual" belief systems shared by others in a network of people that do practice rituals and recognize different energy "states". Her psychosis CHINCHILLA FARMER integrated this belief system per intake from [facility] who had flown out from [facility] because of family recognizing pt was decompensating. INTAKE FROM [facility]; Pt last seen at [place] 08/23 and had completed ADHD workup positive for the syndrome; pt has been receiving Adderall 20 mg bid prescribed regularly thru this month at 3 month intervals despite not being seen for 14 months. Other dx's not identified in the [place] workup; this insurance coverage has been terminated in recent months. ASSESSMENT/PLAN: descriptively improving with resolving psychotic acuity; dx workup incomplete but progressing/ no change in meds or management; will cconsider beginning Adderall 10 mg bid and monitoring MSE; unclear if will continue post DC without assurance of linked definitive DC plan which provides medication management; will need EMMA in include mother in workup and rx planning 10/31/16 15:30 DAY ' UPDATE/EXAM: Nursing reports pt continues to evidence lability, neediness, is over talkative but responsive to redirection and limits; compliant with cares/ meds and attending groups more regularly/ on exam pt is cooperative and conversant; residual POS, over affectualization, minimizing problems; review meds and goals of further stabilization plus need for formulating DC plan involving multiple services and integrating involvement of [facility] and addressing daughter's needs INTAKE/CC: CC reports to me that [facility] has acquired temporary custody of pt's 11 yo daughter without pt being aware; will need to t/w MOC about this action and integrate pt knowing with rx plan and impact on DC planning ASSESSMENT/PLAN: paced improvement with residual affective instability and presumably syndromally active ADD/ will start Adderall 10 mg bid and consider updosing Abilify; attempt speaker phone meeting with FOC and pt tomorrow; bring MOC in for family meeting 11/01/16 15:15 DAY ' UPDATE/EXAM: Nursing reports pt continues to interact with residual lability and needfulness but is incrementally improving, responsive to limits and re- direction, more socially appropriate, c/w cares and meds, using group structures / on direct exam pt appears calmer and less pressured, not overtly psychotic, thought process very concrete and child-like with a here-and now focus and minimally reflective; we do reach FOC for speaker phone discussion; FOC does report the action by MOC obtaining temporary guardianship of pt's daughter - reacting to pt's psychotic decompensation [employer]ARMER and pt's inability to care for her daughter. 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 FOC also concerned about pt's vulnerability to drug abuse but did not provide precise details. Pt managed to maintain control/integration thru this discussion, actively verbally engaged her father appropriately and is concerned about losing parental contact with daughter; pt + about involving MOC in family discussions about her DC planning and better understanding the guardianship intervention by MOC. ASSESSMENT/PLAN: improving descriptively in resolving psychotic acuity and stabilizing affectively/ will increase Abilify to 5 mg qam, consider adding mood stabilizer; will expedite family meeting with pt and MOC and begin to formulate definitive DC plan 11/02/16 14:30 DAY ' UPDATE: Nursing reports over last 24 cycle pt slept well, c/w cares and meds, improving social interactions - less intrusive and more conversant; continues to attend group therapies. ON EXAM: relatively calm and conversant on presentation; residual POS and mid tangentiality but appears to be gaining in stabilizing affectively; during session contacted MOC on speaker phone; MOC agreeable to more extended speaker phone family meeting 11/05 after first speaking with me individually; MOC indicated she doesn"t feel ready to visit pt directly over the weekend as her own anger and general distress about daughter is still to troubling to her whic is in contrast to pt's readiness and wish to have visit from her mother. ASSESSMENT/PLAN: progress continuing in stabilizing mental status/ will hold off beginning mood stabilizer until 11/05 and continue thru weekend with meds unchanged and assess again 11/05 - need to ensure tolerance to updosed Abilify given pt's concerns; CP unchanged as d/w Nursing; formulate definitive DC planning and anticipate DC next week pending resolution of tension with MOC and readiness of pt, MOC, and pt's daughter to resume family system operation post DC 11/05/16 13:13 DAY ' UPDATE/EXAM: Nursing reports over weekend pt displayed some DEJUAN and POS/ lability of affect; compliant with cares/meds and present in milieu and groups, some element of intrusiveness./ on direct exam did observe these elements along with more elaboration of overdetermined relationship with man she's known since age 15 and became psychotically attached to in the 3-4 weeks decompensation [employer]; during brief speaker phone meeting with pt and mother the dyadic tension between both surfaced. Medications discussed with pt accepting changes as referenced ASSESSMENT/PLAN: residual psychotic acuity and lability/ will increase Abilify to 7 mg qd and begin Depakote ER trial and 250 mg bid; no change in CP as d/w Nursing; intake and family meeting scheduled for tomorrow @ 1100. 11/06/16 10:30 DAY UPDATE: Nursing reports over last 24 cycle pt has contnued to evidence residual lability, mild POS, mild intrusiveness socially; also refused to take Depakote x 2 doses; MOC came to unit in AM and told Nursing she would not be returning for the planned family meeting at 11:00 as she was not ready to face her daughter given her anger toward her and the continued felt stress of dealing with daughter's abusive behaviors. ON EXAM: pt presented as relatively calm but again evidences lability and reactivity about MOC - angry, blaming, stating mother constantly distorts and l ies about her; pt was able to settle down in session with limits and support; agreed to take Depakote; able to discuss how to manage mother interactively; spoke with FOC with pt in the office and clarified his arrival to unit for meeting on 11/09; he also understood the necessity of pt's mother being involved directly in pt's DC planning and finding way to interact with pt directly prio to dC and their resuming contact in the community around the care of pt's daughter. He will speak to pt's mother and attempt to facilitate her cooperation. Pt maintained her self in integrated manner thru my discussion with father and endorsed his support for her treatment. I contacted [facility] telephonically and supported her role with care-taking pt's daughter and the importance of her participating in the pt's rx planning prior to DC; MOC was responsive and will reconsider scheduling family meeting this week. ASSESSMENT/PLAN: residual affective instability in context of primary dyadic conflict between pt and her mother; mother has temporary guardianship of pt's 11 yo daughter and will need to stably interact with pt a/w pt visits with her daughter/ reinforce pt's compliance with Depakote trial; continue family work to enable pt and mother to cooperate with DC planning and follow contacts between pt, her mother, and pt's daughter; inpt stay will need extending beyond 11/09 to stabilize pt and family system sufficiently for effective DC to community treatment plan. 11/07/16 13:50 DAY UPDATE: Nursing reports pt is c/w meds and cares including Depakote; pt remains to staff observation to evidence mild POS, still somewhat intrusive and tried to hug pt repeatedly during his discharge process this AM. ON EXAM: presents as relatively calm, cooperative, conversant; described more positive telephonic contact earlier today with mother; talked in further detail about inpt goals for stabilization for patient, stabilization for family system on an interactive level with need for mother and other family members to have direct contact with her and the Treatment team here; tried to call MOC during session but got no answer; pt reiterated her alliance with inpt rx thru to conclusion and investment in followup with [facility]; evidences residual mild POS, minimization of problems with fair degrees of denial and distortion at prepsychotic level ASSESSMENT/PLAN: incrementally better b/w residual affective instability/ will reassess med in AM with ? of updosing Abilify and Depakote; CP focus d/w Nursing in Rounds; call pending back to MOC to again set up onsite family meeting/ 11/08/16 DAY UPDATE: SEE PROGRESS NOTE 11/0811/09/16 12:08 DAY 16 UPDATE: Nursing reports over last 24 hour cycle that pt is making progress in affective stabilization, c/w cares and meds including starting the lamictal dosing; also appears less intrusive and more appropriate in social interactions ON EXAM: presents as calmer, in more modulated control of emotions in using conversant mode; focus on syndromal update, transition from Depakote to Lamictal, remaining goals for in treatment course with tentative DC for 11/13; discussed focus of upcoming family meeting with FOC later into today ASSESSMENT/PLAN: stabilizing course continues/ dc Depakote after AM dose, no other meds changes over weekend, cp d/w Nursing Objective: Vital Signs Temp Pulse Resp BP Pulse Ox 36.7 C 99 16 112/67 97 11/07/16 06:00 11/08/16 09:26 11/08/16 09:26 11/08/16 09:26 11/08/16 09:26 ICD10 Worksheet Patient Problems: Problems Problem Status Onset Psychosis Acute
[2016-11-09] MEDS: lamoTRIgine 25 MG TAB PO SCH (21:10)
[2016-11-09] MEDS: LORazepam 0.5 MG TAB PO PRN ×2 (21:11→22:36)
[2016-11-10] MEDS: ARIPiprazole 5 MG TAB PO SCH ×2 (07:52→20:06)
[2016-11-10] MEDS: ADDERALL 10 MG TAB PO SCH ×2 (07:52→13:16)
[2016-11-10] MEDS: NICOTINE 14 MG/24 HR PATCH TD SCH (07:52)
[2016-11-10] MEDS: NICOTINE POLACRILEX 2 MG GUM B PRN ×2 (18:26→20:06)
[2016-11-10] MEDS: lamoTRIgine 25 MG TAB PO SCH (20:06)
--- NOTE | 2016-11-10 20:38 | SOAPPROG ---
SOAP Progress Note Assessment/Plan: Assessment: 36yo SWF with BMD 1, ADD and polysubst use d/o admitted in manic/psychotic state. most recently hypomanic. 11/10/16 20:45 Per staff, slept 7hr. father and brother visiting. father questions need for Adderall. Pt responded she will only be getting 1 week supply at a time so to not overuse. tolerating Lamictal well, states she likes this med. denies any med s/e. denies any physical c/o. not feeling depressed, no evid of psychosis on brief interaction, with linear responses to questions, denied ah/vh. denied any SI and has had no thoughts to harm others. has been using AG privs appropriately. mood is "good", affect full range, engaging. cognition conversationally intact. future-oriented and hopeful about d/c next week. PLAN: cont current meds vol, AG status Objective: Vital Signs Temp Pulse Resp BP Pulse Ox 36.7 C 85 12 83/46 L 96 11/10/16 06:00 11/10/16 06:00 11/10/16 06:00 11/10/16 06:00 11/10/16 06:00 - Time Spent With Patient Time Spent With Patient: 15 min - Pending Discharge Pending Discharge Within 24 Hours: No Pending Discharge Within 48 Hours: No ICD10 Worksheet Patient Problems: Problems Problem Status Onset Psychosis Acute
[2016-11-11 05:18] VITALS: RESP 16
[2016-11-11] MEDS: ARIPiprazole 5 MG TAB PO SCH ×2 (07:27→19:15)
[2016-11-11] MEDS: ADDERALL 10 MG TAB PO SCH ×2 (07:27→13:17)
[2016-11-11] MEDS: NICOTINE 14 MG/24 HR PATCH TD SCH (07:28)
[2016-11-11] MEDS: NICOTINE POLACRILEX 2 MG GUM B PRN (18:41)
[2016-11-11] MEDS: lamoTRIgine 25 MG TAB PO SCH (19:15)
[2016-11-11] MEDS: ACETAMINOPHEN 325 MG TAB PO PRN (20:16)
[2016-11-11] MEDS: LORazepam 0.5 MG TAB PO PRN (21:53)
--- NOTE | 2016-11-11 22:10 | SOAPPROG ---
SOAP Progress Note Assessment/Plan: Assessment: 36yo SWF with BMD 1, ADD and polysubst use d/o admitted in manic/psychotic state. most recently hypomanic. 11/10/16 20:45 Per staff, slept 7hr. father and brother visiting. father questions need for Adderall. Pt responded she will only be getting 1 week supply at a time so to not overuse. tolerating Lamictal well, states she likes this med. denies any med s/e. denies any physical c/o. not feeling depressed, no evid of psychosis on brief interaction, with linear responses to questions, denied ah/vh. denied any SI and has had no thoughts to harm others. has been using AG privs appropriately. mood is "good", affect full range, engaging. cognition conversationally intact. future-oriented and hopeful about d/c next week. PLAN: cont current meds vol, AG status 11/11/16 14:52 per staff, slept 5+hr. staff notes decr lability overall and improved reports doing well, feeling motivated for outpatient treatment and complying with all recommendations to help get custody of her dtr. father visited. states she was initially upset by his recommendation to have a friend watch her dog so she can have less distractions upon discharge and balancing return to work with outpt MH requirements, but then agreed and hopes to visit her dog weekly. volunteered her plans for how to structure her days after d/c. anticipating [facility] mt tomorrow denied any med s/e. MSE: bright and engaging, cooperative, good eye contact, nml vol/rate of speech , mood "good", affect full, no overt delusions, denied psychotic sxs, denied any si/hi. i/j seem intact/improved PLAN: cont current meds vol, AG status Objective: Vital Signs Temp Pulse Resp BP Pulse Ox 36.6 C 75 16 98/75 L 99 11/11/16 05:17 11/11/16 05:17 11/11/16 05:17 11/11/16 05:17 11/11/16 05:17 - Time Spent With Patient Time Spent With Patient: 15min - Pending Discharge Pending Discharge Within 24 Hours: No Pending Discharge Within 48 Hours: No ICD10 Worksheet Patient Problems: Problems Problem Status Onset Psychosis Acute
[2016-11-12] MEDS: NICOTINE 14 MG/24 HR PATCH TD SCH (08:50)
[2016-11-12] MEDS: ARIPiprazole 5 MG TAB PO SCH ×2 (08:50→21:09)
[2016-11-12] MEDS: ADDERALL 10 MG TAB PO SCH ×2 (08:50→12:22)
[2016-11-12] MEDS: NICOTINE POLACRILEX 2 MG GUM B PRN ×3 (09:00→16:29)
[2016-11-12 21:02] LABS: PHENCYCLIDINE URINE BCH < 6 ng/ml (NEGATIVE); PHENCYCLIDINE URINE BCH NEGATIVE (NEGATIVE); TETRAHYDROCANNABINOL URINE < 5 ng/mL (NEGATIVE); TETRAHYDROCANNABINOL URINE NEGATIVE (NEGATIVE)
[2016-11-12] MEDS: lamoTRIgine 25 MG TAB PO SCH (21:09)
[2016-11-12] MEDS: ACETAMINOPHEN 325 MG TAB PO PRN (21:20)
[2016-11-12] MEDS: LORazepam 0.5 MG TAB PO PRN (23:05)
[2016-11-13 07:20] VITALS: BP 100/63; PULSE 96; TEMP 97.8; O2SAT 98
[2016-11-13] MEDS: ARIPiprazole 5 MG TAB PO SCH (08:22)
[2016-11-13] MEDS: NICOTINE 14 MG/24 HR PATCH TD SCH (08:22)
[2016-11-13] MEDS: NICOTINE POLACRILEX 2 MG GUM B PRN (08:22)
[2016-11-13] MEDS: ADDERALL 10 MG TAB PO SCH ×2 (08:22→13:10)
--- NOTE | 2016-11-13 08:49 | SOAPPROG ---
SOAP Progress Note Assessment/Plan: Assessment: Plan: 10/27/16 12:19 DAY UPDATE: 36 yo SWF admitted via [facility] ED for c/o acute pychotic decompensation emerging over week [employer]; not a psychiatric outpt or on meds [employer]NER; had been treated as outpt in [facility] as an adult for ADHD and ? Bipolar Disorder and has long-term h/o affective instability, ADHD, ? cocaine abuse. Acutely disorganized and agitated in the ED, received Zyprexa 10 mg IM and slept with improved mental status upon awakening prior to M1 admission to yesterday. Dr Su's admission exam reports mild POS, over-talkativeness, IOR circumscribed; pt p/o prn Zyprexa only, slept overnight, in behavioral control and compliant with cares. ON EXAM: presents as slightly pressured but conversant and cooperative; reports falling "in love" recently with long-standing male friend and wanting to connect with him in recent days with her 4 yo daughter out of house and in the care of her mother. However she experienced "negative energy" and the presence of interfering "demons" in the house and with friend's help applied rituals to rid the house of these elements. Mother found her in a disorganized state and brought her to the ED where the acute psychosis was affirmed; TS + for cocaine in the ED. Pt denies using cocaine and said she does drink tea "with coca leaves ". Pt remains cooperative with extending inpt stay to complete work-up and ensure MS stabilization. Will let us call [facility] but not [facility] for collateral intake. ASSESSMENT/PLAN: remains with lessening psychosis amd mild affective instability / no change in meds or management plan; expedite intake including call to pt's father; CP d/w Nursing with emphasis on monitoring MS 10/28/16 11:27 DAY UPDATE: Nuring report states pt's evidencing affective lability to more pronounced degree during second shift yesterday, ? overt psychosis; did remain in behavioral control; anger with mother apparently thematic in disclosures to staff; intake from [facility] suggests chronically depressed self-image, affective instability by hx, serious substance problems with h/o rehab rx pat age 23, authentic workup and dx'd ADD responsive to Adderall; he confirmed pt untreated for some time but may have been continuing of Adderall thru to present. ON EXAM: presents as mildly anxious, tangential, no overt psychosis today but ? persistence of IOR; agreed to trial of Abilify with low-dose start at 2 mg bid; pt has not used prn Zyprexa since admission; pt wants to resume Adderall and I told her we need to reaffirm recent use and who prescriber is - allegedly physician in [place] system; she also understands her need for psychiatric followup and states she can't afford to reume her [place] coverage. ASSESSMENT/PLAN: residual lability and circumscribed PI in form of IOR/ begin Abilify 2mg bid; discuss case with Dr. Su at his return tomorrow to attending role; attempt intake from [place] tomorrow 10/29/16 15:38 DY ' U[DATE/EXAM: Nursing reports pt maintaining behavioral control, c/w cares and meds; relatively isolated but is selectively social and attending some groups/ on exam there is no evidence of psychosis and pt denies thought of demons or negative energy; does also report effective contacts with her mother by phone; feels some urgency to resume her Adderall prescribed by former [place] psychiatrist which she again states she was taking until few days before this admission - thinks her dysphoric mood is a function of not taking it; is willing to continue the trial of Abilify. ASSESSMENT/PLAN: not evidencing psychosis by exam today, residual but less lability/ will try to confirm use of Adderall and consider speaker phone family conference with mother tomorrow 10/30/16 15:15 DAY ' UPDATE/EXAM: Nursing reports pt continues in to comply with meds/cares,and is in behavioral control, managing ADL'S; does not manifest overt psychosis, is mildly labile, thought process evidences poor insight, entitlement, neediness, but does accept limits; on direct exam pt presents as nonpsychotic, prominent denial/minimization of problems [employer]NER; continues to deny drug abuse longer term or acutely o/t self-initiated rehab program in her twenties. INTAKE FROM [facility]: s/w FOC and SOC 2 separate calls; they both describe the pt as chronically affectively unstable and vulnerable to episodes of psychotic disorganization as well as intermittently abusive of various drugs including cocaine; parents while have collaborated with each other to support the patient life-long emotionally and financially; [facility] moved to [place] several years ago when pt decided to move in order to look after her and pt's 11 yo daughter. Pt apparently has lived an idiosyncratic lifestyle with emphasis on following "spiritual" belief systems shared by others in a network of people that do practice rituals and recognize different energy "states". Her psychosis [employer]ACHINE [employer]NER integrated this belief system per intake from [facility] who had flown out from [facility] because of family recognizing pt was decompensating. INTAKE FROM [facility]; Pt last seen at [place] 08/23 and had completed ADHD workup positive for the syndrome; pt has been receiving Adderall 20 mg bid prescribed regularly thru this month at 3 month intervals despite not being seen for 14 months. Other dx's not identified in the [place] workup; this insurance coverage has been terminated in recent months. ASSESSMENT/PLAN: descriptively improving with resolving psychotic acuity; dx workup incomplete but progressing/ no change in meds or management; will cconsider beginning Adderall 10 mg bid and monitoring MSE; unclear if will continue post DC without assurance of linked definitive DC plan which provides medication management; will need EMMA in include mother in workup and rx planning 10/31/16 15:30 DAY ' UPDATE/EXAM: Nursing reports pt continues to evidence lability, neediness, is over talkative but responsive to redirection and limits; compliant with cares/ meds and attending groups more regularly/ on exam pt is cooperative and conversant; residual POS, over affectualization, minimizing problems; review meds and goals of further stabilization plus need for formulating DC plan involving multiple services and integrating involvement of [facility] and addressing daughter's needs INTAKE/CC: CC reports to me that [facility] has acquired temporary custody of pt's 11 yo daughter without pt being aware; will need to t/w MOC about this action and integrate pt knowing with rx plan and impact on DC planning ASSESSMENT/PLAN: paced improvement with residual affective instability and presumably syndromally active ADD/ will start Adderall 10 mg bid and consider updosing Abilify; attempt speaker phone meeting with FOC and pt tomorrow; bring MOC in for family meeting 11/01/16 15:15 DAY ' UPDATE/EXAM: Nursing reports pt continues to interact with residual lability and needfulness but is incrementally improving, responsive to limits and re- direction, more socially appropriate, c/w cares and meds, using group structures / on direct exam pt appears calmer and less pressured, not overtly psychotic, thought process very concrete and child-like with a here-and now focus and minimally reflective; we do reach FOC for speaker phone discussion; FOC does report the action by MOC obtaining temporary guardianship of pt's daughter - reacting to pt's psychotic decompensation [employer] MACHINE [employer]NER and pt's inability to care for her daughter. 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 FOC also concerned about pt's vulnerability to drug abuse but did not provide precise details. Pt managed to maintain control/integration thru this discussion, actively verbally engaged her father appropriately and is concerned about losing parental contact with daughter; pt + about involving MOC in family discussions about her DC planning and better understanding the guardianship intervention by MOC. ASSESSMENT/PLAN: improving descriptively in resolving psychotic acuity and stabilizing affectively/ will increase Abilify to 5 mg qam, consider adding mood stabilizer; will expedite family meeting with pt and MOC and begin to formulate definitive DC plan 11/02/16 14:30 DAY ' UPDATE: Nursing reports over last 24 cycle pt slept well, c/w cares and meds, improving social interactions - less intrusive and more conversant; continues to attend group therapies. ON EXAM: relatively calm and conversant on presentation; residual POS and mid tangentiality but appears to be gaining in stabilizing affectively; during session contacted MOC on speaker phone; MOC agreeable to more extended speaker phone family meeting 11/05 after first speaking with me individually; MOC indicated she doesn"t feel ready to visit pt directly over the weekend as her own anger and general distress about daughter is still to troubling to her whic is in contrast to pt's readiness and wish to have visit from her mother. ASSESSMENT/PLAN: progress continuing in stabilizing mental status/ will hold off beginning mood stabilizer until 11/05 and continue thru weekend with meds unchanged and assess again 11/05 - need to ensure tolerance to updosed Abilify given pt's concerns; CP unchanged as d/w Nursing; formulate definitive DC planning and anticipate DC next week pending resolution of tension with MOC and readiness of pt, MOC, and pt's daughter to resume family system operation post DC 11/05/16 13:13 DAY ' UPDATE/EXAM: Nursing reports over weekend pt displayed some DEJUAN and POS/ lability of affect; compliant with cares/meds and present in milieu and groups, some element of intrusiveness./ on direct exam did observe these elements along with more elaboration of overdetermined relationship with man she's known since age 15 and became psychotically attached to in the 3-4 weeks decompensation [employer]; during brief speaker phone meeting with pt and mother the dyadic tension between both surfaced. Medications discussed with pt accepting changes as referenced ASSESSMENT/PLAN: residual psychotic acuity and lability/ will increase Abilify to 7 mg qd and begin Depakote ER trial and 250 mg bid; no change in CP as d/w Nursing; intake and family meeting scheduled for tomorrow @ 1100. 11/06/16 10:30 DAY UPDATE: Nursing reports over last 24 cycle pt has contnued to evidence residual lability, mild POS, mild intrusiveness socially; also refused to take Depakote x 2 doses; MOC came to unit in AM and told Nursing she would not be returning for the planned family meeting at 11:00 as she was not ready to face her daughter given her anger toward her and the continued felt stress of dealing with daughter's abusive behaviors. ON EXAM: pt presented as relatively calm but again evidences lability and reactivity about MOC - angry, blaming, stating mother constantly distorts and l ies about her; pt was able to settle down in session with limits and support; agreed to take Depakote; able to discuss how to manage mother interactively; spoke with FOC with pt in the office and clarified his arrival to unit for meeting on 11/09; he also understood the necessity of pt's mother being involved directly in pt's DC planning and finding way to interact with pt directly prio to dC and their resuming contact in the community around the care of pt's daughter. He will speak to pt's mother and attempt to facilitate her cooperation. Pt maintained her self in integrated manner thru my discussion with father and endorsed his support for her treatment. I contacted [facility] telephonically and supported her role with care-taking pt's daughter and the importance of her participating in the pt's rx planning prior to DC; MOC was responsive and will reconsider scheduling family meeting this week. ASSESSMENT/PLAN: residual affective instability in context of primary dyadic conflict between pt and her mother; mother has temporary guardianship of pt's 11 yo daughter and will need to stably interact with pt a/w pt visits with her daughter/ reinforce pt's compliance with Depakote trial; continue family work to enable pt and mother to cooperate with DC planning and follow contacts between pt, her mother, and pt's daughter; inpt stay will need extending beyond 11/09 to stabilize pt and family system sufficiently for effective DC to community treatment plan. 11/07/16 13:50 DAY UPDATE: Nursing reports pt is c/w meds and cares including Depakote; pt remains to staff observation to evidence mild POS, still somewhat intrusive and tried to hug pt repeatedly during his discharge process this AM. ON EXAM: presents as relatively calm, cooperative, conversant; described more positive telephonic contact earlier today with mother; talked in further detail about inpt goals for stabilization for patient, stabilization for family system on an interactive level with need for mother and other family members to have direct contact with her and the Treatment team here; tried to call MOC during session but got no answer; pt reiterated her alliance with inpt rx thru to conclusion and investment in followup with MHP; evidences residual mild POS, minimization of problems with fair degrees of denial and distortion at prepsychotic level ASSESSMENT/PLAN: incrementally better b/w residual affective instability/ will reassess med in AM with ? of updosing Abilify and Depakote; CP focus d/w Nursing in Rounds; call pending back to MOC to again set up onsite family meeting/ 11/08/16 DAY UPDATE: SEE PROGRESS NOTE 11/0811/09/16 12:08 DAY UPDATE: Nursing reports over last 24 hour cycle that pt is making progress in affective stabilization, c/w cares and meds including starting the lamictal dosing; also appears less intrusive and more appropriate in social interactions ON EXAM: presents as calmer, in more modulated control of emotions in using conversant mode; focus on syndromal update, transition from Depakote to Lamictal, remaining goals for in treatment course with tentative DC for 11/13; discussed focus of upcoming family meeting with FOC later into today ASSESSMENT/PLAN: stabilizing course continues/ dc Depakote after AM dose, no other meds changes over weekend, cp d/w Nursing 11/12/16 09:00/ 13:00 DAY ' UPDATE: Nursing reports that pt continued improving course over weekend - evidencing behavioral control, improing social ego operations, c/w cares and meds; managed multiple family visits effectively ON EXAM: pt seen X 2 - individually first and in family meeting in f/u; improving mental status evident as speech parameters normalizing, affectively stable, thought process focussed and reflective; continues to report an initial understanding of the need to mature her relationships with others and particularly diminish the dependence on parents and better serve their need to balance their lives as function of her growing a stable autonomy; discussed her parenting role in detail as functioning within the structure of mo as her daughter's guardian and she as the noncustodial parent. reviewed Dc planning and what to do in the [facility] intake appointment tomorrow; ?'s about Adderall use in f/u discussed. FAMILY MEETING WITH PT/PARENTS: productive session with course updated, followup treatment planning discussed, parental privilege integrated with MOC as group home and with guardianship authority reviewed. ASSESSMENT/PLAN: improving course with DC scheduled for tomorrow PM/ noo change in current meds or management plan Objective: Vital Signs Temp Pulse Resp BP Pulse Ox 36.6 C 96 16 100/63 98 11/13/16 07:19 11/13/16 07:19 11/13/16 07:19 11/13/16 07:19 11/13/16 07:19 ICD10 Worksheet Patient Problems: Problems Problem Status Onset Psychosis Acute
--- NOTE | 2016-11-13 14:39 | SOAPPROG ---
SOAP Progress Note Assessment/Plan: Assessment: Plan: 10/27/16 12:19 DAY UPDATE: 36 yo SWF admitted via [facility] for c/o acute pychotic decompensation emerging over week COAL HIKER; not a psychiatric outpt or on meds COAL HIKER; had been treated as outpt in [facility] as an adult for ADHD and ? Bipolar Disorder and has long-term h/o affective instability, ADHD, ? cocaine abuse. Acutely disorganized and agitated in the ED, received Zyprexa 10 mg IM and slept with improved mental status upon awakening prior to M1 admission to yesterday. Dr Su's admission exam reports mild POS, over-talkativeness, IOR circumscribed; pt p/o prn Zyprexa only, slept overnight, in behavioral control and compliant with cares. ON EXAM: presents as slightly pressured but conversant and cooperative; reports falling "in love" recently with long-standing male friend and wanting to connect with him in recent days with her 4 yo daughter out of house and in the care of her mother. However she experienced "negative energy" and the presence of interfering "demons" in the house and with friend's help applied rituals to rid the house of these elements. Mother found her in a disorganized state and brought her to the ED where the acute psychosis was affirmed; TS + for cocaine in the ED. Pt denies using cocaine and said she does drink tea "with coca leaves ". Pt remains cooperative with extending inpt stay to complete work-up and ensure MS stabilization. Will let us call [facility] but not [facility] for collateral intake. ASSESSMENT/PLAN: remains with lessening psychosis amd mild affective instability / no change in meds or management plan; expedite intake including call to pt's father; CP d/w Nursing with emphasis on monitoring MS 10/28/16 11:27 DAY UPDATE: [facility] report states pt's evidencing affective lability to more pronounced degree during second shift yesterday, ? overt psychosis; did remain in behavioral control; anger with mother apparently thematic in disclosures to staff; intake from [facility] suggests chronically depressed self-image, affective instability by hx, serious substance problems with h/o rehab rx pat age 23, authentic workup and dx'd ADD responsive to Adderall; he confirmed pt untreated for some time but may have been continuing of Adderall thru to present. ON EXAM: presents as mildly anxious, tangential, no overt psychosis today but ? persistence of IOR; agreed to trial of Abilify with low-dose start at 2 mg bid; pt has not used prn Zyprexa since admission; pt wants to resume Adderall and I told her we need to reaffirm recent use and who prescriber is - allegedly physician in [facility] system; she also understands her need for psychiatric followup and states she can't afford to reume her [facility] coverage. ASSESSMENT/PLAN: residual lability and circumscribed PI in form of IOR/ begin Abilify 2mg bid; discuss case with Dr. Su at his return tomorrow to attending role; attempt intake from [facility] tomorrow 10/29/16 15:38 DY ' U[DATE/EXAM: Nursing reports pt maintaining behavioral control, c/w cares and meds; relatively isolated but is selectively social and attending some groups/ on exam there is no evidence of psychosis and pt denies thought of demons or negative energy; does also report effective contacts with her mother by phone; feels some urgency to resume her Adderall prescribed by former [facility] psychiatrist which she again states she was taking until few days before this admission - thinks her dysphoric mood is a function of not taking it; is willing to continue the trial of Abilify. ASSESSMENT/PLAN: not evidencing psychosis by exam today, residual but less lability/ will try to confirm use of Adderall and consider speaker phone family conference with mother tomorrow 10/30/16 15:15 DAY ' UPDATE/EXAM: Nursing reports pt continues in to comply with meds/cares,and is in behavioral control, managing ADL'S; does not manifest overt psychosis, is mildly labile, thought process evidences poor insight, entitlement, neediness, but does accept limits; on direct exam pt presents as nonpsychotic, prominent denial/minimization of problems COAL HIKER; continues to deny drug abuse longer term or acutely o/t self-initiated rehab program in her twenties. INTAKE FROM [facility]: s/w FOC and SOC 2 separate calls; they both describe the pt as chronically affectively unstable and vulnerable to episodes of psychotic disorganization as well as intermittently abusive of various drugs including cocaine; parents while have collaborated with each other to support the patient life-long emotionally and financially; [facility] moved to [place] several years ago when pt decided to move in order to look after her and pt's 11 yo daughter. Pt apparently has lived an idiosyncratic lifestyle with emphasis on following "spiritual" belief systems shared by others in a network of people that do practice rituals and recognize different energy "states". Her psychosis COAL HIKER integrated this belief system per intake from [facility] who had flown out from [facility] because of family recognizing pt was decompensating. INTAKE FROM [facility]; Pt last seen at [facility] 08/23 and had completed ADHD workup positive for the syndrome; pt has been receiving Adderall 20 mg bid prescribed regularly thru this month at 3 month intervals despite not being seen for 14 months. Other dx's not identified in the [facility] workup; this insurance coverage has been terminated in recent months. ASSESSMENT/PLAN: descriptively improving with resolving psychotic acuity; dx workup incomplete but progressing/ no change in meds or management; will cconsider beginning Adderall 10 mg bid and monitoring MSE; unclear if will continue post DC without assurance of linked definitive DC plan which provides medication management; will need EMMA in include mother in workup and rx planning 10/31/16 15:30 DAY ' UPDATE/EXAM: Nursing reports pt continues to evidence lability, neediness, is over talkative but responsive to redirection and limits; compliant with cares/ meds and attending groups more regularly/ on exam pt is cooperative and conversant; residual POS, over affectualization, minimizing problems; review meds and goals of further stabilization plus need for formulating DC plan involving multiple services and integrating involvement of [facility] and addressing daughter's needs INTAKE/CC: CC reports to me that [facility] has acquired temporary custody of pt's 11 yo daughter without pt being aware; will need to t/w MOC about this action and integrate pt knowing with rx plan and impact on DC planning ASSESSMENT/PLAN: paced improvement with residual affective instability and presumably syndromally active ADD/ will start Adderall 10 mg bid and consider updosing Abilify; attempt speaker phone meeting with FOC and pt tomorrow; bring MOC in for family meeting 11/01/16 15:15 DAY ' UPDATE/EXAM: Nursing reports pt continues to interact with residual lability and needfulness but is incrementally improving, responsive to limits and re- direction, more socially appropriate, c/w cares and meds, using group structures / on direct exam pt appears calmer and less pressured, not overtly psychotic, thought process very concrete and child-like with a here-and now focus and minimally reflective; we do reach FOC for speaker phone discussion; FOC does report the action by MOC obtaining temporary guardianship of pt's daughter - reacting to pt's psychotic decompensation COAL HIKER and pt's inability to care for her daughter. 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 FOC also concerned about pt's vulnerability to drug abuse but did not provide precise details. Pt managed to maintain control/integration thru this discussion, actively verbally engaged her father appropriately and is concerned about losing parental contact with daughter; pt + about involving MOC in family discussions about her DC planning and better understanding the guardianship intervention by MOC. ASSESSMENT/PLAN: improving descriptively in resolving psychotic acuity and stabilizing affectively/ will increase Abilify to 5 mg qam, consider adding mood stabilizer; will expedite family meeting with pt and MOC and begin to formulate definitive DC plan 11/02/16 14:30 DAY ' UPDATE: Nursing reports over last 24 cycle pt slept well, c/w cares and meds, improving social interactions - less intrusive and more conversant; continues to attend group therapies. ON EXAM: relatively calm and conversant on presentation; residual POS and mid tangentiality but appears to be gaining in stabilizing affectively; during session contacted MOC on speaker phone; MOC agreeable to more extended speaker phone family meeting 11/05 after first speaking with me individually; MOC indicated she doesn"t feel ready to visit pt directly over the weekend as her own anger and general distress about daughter is still to troubling to her whic is in contrast to pt's readiness and wish to have visit from her mother. ASSESSMENT/PLAN: progress continuing in stabilizing mental status/ will hold off beginning mood stabilizer until 11/05 and continue thru weekend with meds unchanged and assess again 11/05 - need to ensure tolerance to updosed Abilify given pt's concerns; CP unchanged as d/w Nursing; formulate definitive DC planning and anticipate DC next week pending resolution of tension with MOC and readiness of pt, MOC, and pt's daughter to resume family system operation post DC 11/05/16 13:13 DAY ' UPDATE/EXAM: Nursing reports over weekend pt displayed some DEJUAN and POS/ lability of affect; compliant with cares/meds and present in milieu and groups, some element of intrusiveness./ on direct exam did observe these elements along with more elaboration of overdetermined relationship with man she's known since age 15 and became psychotically attached to in the 3-4 weeks decompensation COAL HIKER; during brief speaker phone meeting with pt and mother the dyadic tension between both surfaced. Medications discussed with pt accepting changes as referenced ASSESSMENT/PLAN: residual psychotic acuity and lability/ will increase Abilify to 7 mg qd and begin Depakote ER trial and 250 mg bid; no change in CP as d/w Nursing; intake and family meeting scheduled for tomorrow @ 1100. 11/06/16 10:30 DAY UPDATE: Nursing reports over last 24 cycle pt has contnued to evidence residual lability, mild POS, mild intrusiveness socially; also refused to take Depakote x 2 doses; MOC came to unit in AM and told Nursing she would not be returning for the planned family meeting at 11:00 as she was not ready to face her daughter given her anger toward her and the continued felt stress of dealing with daughter's abusive behaviors. ON EXAM: pt presented as relatively calm but again evidences lability and reactivity about MOC - angry, blaming, stating mother constantly distorts and l ies about her; pt was able to settle down in session with limits and support; agreed to take Depakote; able to discuss how to manage mother interactively; spoke with FOC with pt in the office and clarified his arrival to unit for meeting on 11/09; he also understood the necessity of pt's mother being involved directly in pt's DC planning and finding way to interact with pt directly prio to dC and their resuming contact in the community around the care of pt's daughter. He will speak to pt's mother and attempt to facilitate her cooperation. Pt maintained her self in integrated manner thru my discussion with father and endorsed his support for her treatment. I contacted [facility] telephonically and supported her role with care-taking pt's daughter and the importance of her participating in the pt's rx planning prior to DC; MOC was responsive and will reconsider scheduling family meeting this week. ASSESSMENT/PLAN: residual affective instability in context of primary dyadic conflict between pt and her mother; mother has temporary guardianship of pt's 11 yo daughter and will need to stably interact with pt a/w pt visits with her daughter/ reinforce pt's compliance with Depakote trial; continue family work to enable pt and mother to cooperate with DC planning and follow contacts between pt, her mother, and pt's daughter; inpt stay will need extending beyond 11/09 to stabilize pt and family system sufficiently for effective DC to community treatment plan. 11/07/16 13:50 DAY UPDATE: Nursing reports pt is c/w meds and cares including Depakote; pt remains to staff observation to evidence mild POS, still somewhat intrusive and tried to hug pt repeatedly during his discharge process this AM. ON EXAM: presents as relatively calm, cooperative, conversant; described more positive telephonic contact earlier today with mother; talked in further detail about inpt goals for stabilization for patient, stabilization for family system on an interactive level with need for mother and other family members to have direct contact with her and the Treatment team here; tried to call MOC during session but got no answer; pt reiterated her alliance with inpt rx thru to conclusion and investment in followup with MHP; evidences residual mild POS, minimization of problems with fair degrees of denial and distortion at prepsychotic level ASSESSMENT/PLAN: incrementally better b/w residual affective instability/ will reassess med in AM with ? of updosing Abilify and Depakote; CP focus d/w Nursing in Rounds; call pending back to MOC to again set up onsite family meeting/ 11/08/16 DAY UPDATE: SEE PROGRESS NOTE 11/0811/09/16 12:08 DAY UPDATE: Nursing reports over last 24 hour cycle that pt is making progress in affective stabilization, c/w cares and meds including starting the lamictal dosing; also appears less intrusive and more appropriate in social interactions ON EXAM: presents as calmer, in more modulated control of emotions in using conversant mode; focus on syndromal update, transition from Depakote to Lamictal, remaining goals for in treatment course with tentative DC for 11/13; discussed focus of upcoming family meeting with [facility] later into today ASSESSMENT/PLAN: stabilizing course continues/ dc Depakote after AM dose, no other meds changes over weekend, cp d/w Nursing 11/12/16 09:00/ 13:00 DAY UPDATE: Nursing reports that pt continued improving course over weekend - evidencing behavioral control, improing social ego operations, c/w cares and meds; managed multiple family visits effectively ON EXAM: pt seen X 2 - individually first and in family meeting in f/u; improving mental status evident as speech parameters normalizing, affectively stable, thought process focussed and reflective; continues to report an initial understanding of the need to mature her relationships with others and particularly diminish the dependence on parents and better serve their need to balance their lives as function of her growing a stable autonomy; discussed her parenting role in detail as functioning within the structure of ca as her daughter's guardian and she as the noncustodial parent. reviewed Dc planning and what to do in the P intake appointment tomorrow; ?'s about Adderall use in f/u discussed. FAMILY MEETING WITH PT/PARENTS: productive session with course updated, followup treatment planning discussed, parental privilege integrated with MOC as fdc and with guardianship authority reviewed. ASSESSMENT/PLAN: improving course with DC scheduled for tomorrow PM/ noo change in current meds or management plan 11/13/16 14:31 Brief Discharge Note DAY UPDATE/EXAM: Nursing reports that pt has remained stable and thoughtful in preparing for DC/ presents as calm, conversant, and cooperative; is affectively stable and thinking is linear and goal-focussed; course reviewed and progress and again note, followup community treatment discussed with associated goals; meds reviewed; 2 week script for Adderall given with pt understanding my plan to reach prescriber when name and mumber available to me tomorrow after her intake appointment - pt understands MHP will make their independent decision on whether to continue the Adderall and, if so, how to manage it with her when she is seen 11/27 in first prescriber appointment; pt stable and ready for DC ASSESSMENT/PLAN: stable and ready for DC DC to return home with transport by [facility] f/u with P intake tomorrow at 11:00 15 day prescriptions given for meds as referenced Objective: Vital Signs Temp Pulse Resp BP Pulse Ox 36.6 C 96 16 100/63 98 11/13/16 07:19 11/13/16 07:19 11/13/16 07:19 11/13/16 07:19 11/13/16 07:19 ICD10 Worksheet Patient Problems: Problems Problem Status Onset Psychosis Acute
--- NOTE | 2016-11-13 14:40 | SOAPPROG ---
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 Bipolar Disorder and has long-term h/o affective instability, ADHD, ? cocaine abuse. Acutely disorganized and agitated in the ED, received Zyprexa 10 mg IM and slept with improved mental status upon awakening prior to M1 admission to yesterday. Dr Su's admission exam reports mild POS, over-talkativeness, IOR circumscribed; pt p/o prn Zyprexa only, slept overnight, in behavioral control and compliant with cares. ON EXAM: presents as slightly pressured but conversant and cooperative; reports falling "in love" recently with long-standing male friend and wanting to connect with him in recent days with her 4 yo daughter out of house and in the care of her mother. However she experienced "negative energy" and the presence of interfering "demons" in the house and with friend's help applied rituals to rid the house of these elements. Mother found her in a disorganized state and brought her to the ED where the acute psychosis was affirmed; TS + for cocaine in the ED. Pt denies using cocaine and said she does drink tea "with coca leaves ". Pt remains cooperative with extending inpt stay to complete work-up and ensure MS stabilization. Will let us call [facility] but not [facility] for collateral intake. ASSESSMENT/PLAN: remains with lessening psychosis amd mild affective instability / no change in meds or management plan; expedite intake including call to pt's father; CP d/w Nursing with emphasis on monitoring MS 10/28/16 11:27 DAY UPDATE: Nuring report states pt's evidencing affective lability to more pronounced degree during second shift yesterday, ? overt psychosis; did remain in behavioral control; anger with mother apparently thematic in disclosures to staff; intake from [facility] suggests chronically depressed self-image, affective instability by hx, serious substance problems with h/o rehab rx pat age 23, authentic workup and dx'd ADD responsive to Adderall; he confirmed pt untreated for some time but may have been continuing of Adderall thru to present. ON EXAM: presents as mildly anxious, tangential, no overt psychosis today but ? persistence of IOR; agreed to trial of Abilify with low-dose start at 2 mg bid; pt has not used prn Zyprexa since admission; pt wants to resume Adderall and I told her we need to reaffirm recent use and who prescriber is - allegedly physician in [place] system; she also understands her need for psychiatric followup and states she can't afford to reume her [place] coverage. ASSESSMENT/PLAN: residual lability and circumscribed PI in form of IOR/ begin Abilify 2mg bid; discuss case with Dr. Su at his return tomorrow to attending role; attempt intake from [place] tomorrow 10/29/16 15:38 DY ' U[DATE/EXAM: Nursing reports pt maintaining behavioral control, c/w cares and meds; relatively isolated but is selectively social and attending some groups/ on exam there is no evidence of psychosis and pt denies thought of demons or negative energy; does also report effective contacts with her mother by phone; feels some urgency to resume her Adderall prescribed by former [place] psychiatrist which she again states she was taking until few days before this admission - thinks her dysphoric mood is a function of not taking it; is willing to continue the trial of Abilify. ASSESSMENT/PLAN: not evidencing psychosis by exam today, residual but less lability/ will try to confirm use of Adderall and consider speaker phone family conference with mother tomorrow 10/30/16 15:15 DAY ' UPDATE/EXAM: Nursing reports pt continues in to comply with meds/cares,and is in behavioral control, managing ADL'S; does not manifest overt psychosis, is mildly labile, thought process evidences poor insight, entitlement, neediness, but does accept limits; on direct exam pt presents as nonpsychotic, prominent denial/minimization of problems REFERRAL CLERK; continues to deny drug abuse longer term or acutely o/t self-initiated rehab program in her twenties. INTAKE FROM [facility]: s/w FOC and SOC 2 separate calls; they both describe the pt as chronically affectively unstable and vulnerable to episodes of psychotic disorganization as well as intermittently abusive of various drugs including cocaine; parents while have collaborated with each other to support the patient life-long emotionally and financially; [facility] moved to [place] several years ago when pt decided to move in order to look after her and pt's 11 yo daughter. Pt apparently has lived an idiosyncratic lifestyle with emphasis on following "spiritual" belief systems shared by others in a network of people that do practice rituals and recognize different energy "states". Her psychosis REFERRAL CLERK integrated this belief system per intake from [facility] who had flown out from [facility] because of family recognizing pt was decompensating. INTAKE FROM [facility]; Pt last seen at [place] 08/23 and had completed ADHD workup positive for the syndrome; pt has been receiving Adderall 20 mg bid prescribed regularly thru this month at 3 month intervals despite not being seen for 14 months. Other dx's not identified in the [place] workup; this insurance coverage has been terminated in recent months. ASSESSMENT/PLAN: descriptively improving with resolving psychotic acuity; dx workup incomplete but progressing/ no change in meds or management; will cconsider beginning Adderall 10 mg bid and monitoring MSE; unclear if will continue post DC without assurance of linked definitive DC plan which provides medication management; will need EMMA in include mother in workup and rx planning 10/31/16 15:30 DAY ' UPDATE/EXAM: Nursing reports pt continues to evidence lability, neediness, is over talkative but responsive to redirection and limits; compliant with cares/ meds and attending groups more regularly/ on exam pt is cooperative and conversant; residual POS, over affectualization, minimizing problems; review meds and goals of further stabilization plus need for formulating DC plan involving multiple services and integrating involvement of [facility] and addressing daughter's needs INTAKE/CC: CC reports to me that [facility] has acquired temporary custody of pt's 11 yo daughter without pt being aware; will need to t/w MOC about this action and integrate pt knowing with rx plan and impact on DC planning ASSESSMENT/PLAN: paced improvement with residual affective instability and presumably syndromally active ADD/ will start Adderall 10 mg bid and consider updosing Abilify; attempt speaker phone meeting with FOC and pt tomorrow; bring MOC in for family meeting 11/01/16 15:15 DAY ' UPDATE/EXAM: Nursing reports pt continues to interact with residual lability and needfulness but is incrementally improving, responsive to limits and re- direction, more socially appropriate, c/w cares and meds, using group structures / on direct exam pt appears calmer and less pressured, not overtly psychotic, thought process very concrete and child-like with a here-and now focus and minimally reflective; we do reach FOC for speaker phone discussion; FOC does report the action by MOC obtaining temporary guardianship of pt's daughter - reacting to pt's psychotic decompensation REFERRAL CLERK and pt's inability to care for her daughter. 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 FOC also concerned about pt's vulnerability to drug abuse but did not provide precise details. Pt managed to maintain control/integration thru this discussion, actively verbally engaged her father appropriately and is concerned about losing parental contact with daughter; pt + about involving MOC in family discussions about her DC planning and better understanding the guardianship intervention by MOC. ASSESSMENT/PLAN: improving descriptively in resolving psychotic acuity and stabilizing affectively/ will increase Abilify to 5 mg qam, consider adding mood stabilizer; will expedite family meeting with pt and MOC and begin to formulate definitive DC plan 11/02/16 14:30 DAY ' UPDATE: Nursing reports over last 24 cycle pt slept well, c/w cares and meds, improving social interactions - less intrusive and more conversant; continues to attend group therapies. ON EXAM: relatively calm and conversant on presentation; residual POS and mid tangentiality but appears to be gaining in stabilizing affectively; during session contacted MOC on speaker phone; MOC agreeable to more extended speaker phone family meeting 11/05 after first speaking with me individually; MOC indicated she doesn"t feel ready to visit pt directly over the weekend as her own anger and general distress about daughter is still to troubling to her whic is in contrast to pt's readiness and wish to have visit from her mother. ASSESSMENT/PLAN: progress continuing in stabilizing mental status/ will hold off beginning mood stabilizer until 11/05 and continue thru weekend with meds unchanged and assess again 11/05 - need to ensure tolerance to updosed Abilify given pt's concerns; CP unchanged as d/w Nursing; formulate definitive DC planning and anticipate DC next week pending resolution of tension with MOC and readiness of pt, MOC, and pt's daughter to resume family system operation post DC 11/05/16 13:13 DAY ' UPDATE/EXAM: Nursing reports over weekend pt displayed some DEJUAN and POS/ lability of affect; compliant with cares/meds and present in milieu and groups, some element of intrusiveness./ on direct exam did observe these elements along with more elaboration of overdetermined relationship with man she's known since age 15 and became psychotically attached to in the 3-4 weeks decompensation REFERRAL CLERK; during brief speaker phone meeting with pt and mother the dyadic tension between both surfaced. Medications discussed with pt accepting changes as referenced ASSESSMENT/PLAN: residual psychotic acuity and lability/ will increase Abilify to 7 mg qd and begin Depakote ER trial and 250 mg bid; no change in CP as d/w Nursing; intake and family meeting scheduled for tomorrow @ 1100. 11/06/16 10:30 DAY UPDATE: Nursing reports over last 24 cycle pt has contnued to evidence residual lability, mild POS, mild intrusiveness socially; also refused to take Depakote x 2 doses; MOC came to unit in AM and told Nursing she would not be returning for the planned family meeting at 11:00 as she was not ready to face her daughter given her anger toward her and the continued felt stress of dealing with daughter's abusive behaviors. ON EXAM: pt presented as relatively calm but again evidences lability and reactivity about MOC - angry, blaming, stating mother constantly distorts and l ies about her; pt was able to settle down in session with limits and support; agreed to take Depakote; able to discuss how to manage mother interactively; spoke with FOC with pt in the office and clarified his arrival to unit for meeting on 11/09; he also understood the necessity of pt's mother being involved directly in pt's DC planning and finding way to interact with pt directly prio to dC and their resuming contact in the community around the care of pt's daughter. He will speak to pt's mother and attempt to facilitate her cooperation. Pt maintained her self in integrated manner thru my discussion with father and endorsed his support for her treatment. I contacted [facility] telephonically and supported her role with care-taking pt's daughter and the importance of her participating in the pt's rx planning prior to DC; MOC was responsive and will reconsider scheduling family meeting this week. ASSESSMENT/PLAN: residual affective instability in context of primary dyadic conflict between pt and her mother; mother has temporary guardianship of pt's 11 yo daughter and will need to stably interact with pt a/w pt visits with her daughter/ reinforce pt's compliance with Depakote trial; continue family work to enable pt and mother to cooperate with DC planning and follow contacts between pt, her mother, and pt's daughter; inpt stay will need extending beyond 11/09 to stabilize pt and family system sufficiently for effective DC to community treatment plan. 11/07/16 13:50 DAY UPDATE: Nursing reports pt is c/w meds and cares including Depakote; pt remains to staff observation to evidence mild POS, still somewhat intrusive and tried to hug pt repeatedly during his discharge process this AM. ON EXAM: presents as relatively calm, cooperative, conversant; described more positive telephonic contact earlier today with mother; talked in further detail about inpt goals for stabilization for patient, stabilization for family system on an interactive level with need for mother and other family members to have direct contact with her and the Treatment team here; tried to call MOC during session but got no answer; pt reiterated her alliance with inpt rx thru to conclusion and investment in followup with MHP; evidences residual mild POS, minimization of problems with fair degrees of denial and distortion at prepsychotic level ASSESSMENT/PLAN: incrementally better b/w residual affective instability/ will reassess med in AM with ? of updosing Abilify and Depakote; CP focus d/w Nursing in Rounds; call pending back to MOC to again set up onsite family meeting/ 11/08/16 DAY UPDATE: SEE PROGRESS NOTE 11/0811/09/16 12:08 DAY UPDATE: Nursing reports over last 24 hour cycle that pt is making progress in affective stabilization, c/w cares and meds including starting the lamictal dosing; also appears less intrusive and more appropriate in social interactions ON EXAM: presents as calmer, in more modulated control of emotions in using conversant mode; focus on syndromal update, transition from Depakote to Lamictal, remaining goals for in treatment course with tentative DC for 11/13; discussed focus of upcoming family meeting with [facility] later into today ASSESSMENT/PLAN: stabilizing course continues/ dc Depakote after AM dose, no other meds changes over weekend, cp d/w Nursing 11/12/16 09:00/ 13:00 DAY UPDATE: Nursing reports that pt continued improving course over weekend - evidencing behavioral control, improing social ego operations, c/w cares and meds; managed multiple family visits effectively ON EXAM: pt seen X 2 - individually first and in family meeting in f/u; improving mental status evident as speech parameters normalizing, affectively stable, thought process focussed and reflective; continues to report an initial understanding of the need to mature her relationships with others and particularly diminish the dependence on parents and better serve their need to balance their lives as function of her growing a stable autonomy; discussed her parenting role in detail as functioning within the structure of pa as her daughter's guardian and she as the noncustodial parent. reviewed Dc planning and what to do in the P intake appointment tomorrow; ?'s about Adderall use in f/u discussed. FAMILY MEETING WITH PT/PARENTS: productive session with course updated, followup treatment planning discussed, parental privilege integrated with MOC as group home and with guardianship authority reviewed. ASSESSMENT/PLAN: improving course with DC scheduled for tomorrow PM/ noo change in current meds or management plan 11/13/16 14:31 Brief Discharge Note DAY UPDATE/EXAM: Nursing reports that pt has remained stable and thoughtful in preparing for DC/ presents as calm, conversant, and cooperative; is affectively stable and thinking is linear and goal-focussed; course reviewed and progress and again note, followup community treatment discussed with associated goals; meds reviewed; 2 week script for Adderall given with pt understanding my plan to reach prescriber when name and mumber available to me tomorrow after her intake appointment - pt understands MHP will make their independent decision on whether to continue the Adderall and, if so, how to manage it with her when she is seen 11/27 in first prescriber appointment; pt stable and ready for DC ASSESSMENT/PLAN: stable and ready for DC DC to return home with transport by [facility] f/u with P intake tomorrow at 11:00 15 day prescriptions given for meds as referenced 11/13/16 14:40 Ambulatory Orders ARIPiprazole [Abilify 5 mg (*)] 5 mg PO BID #60 tab 11/13/16 Amphet Asp and D/Amphet [Adderall 10 MG (*)] 10 mg PO BID@0800,1300 #30 tab lamoTRIgine [LaMICtal] 25 mg PO BID #60 tab NS 11/13/16 Objective: Vital Signs Temp Pulse Resp BP Pulse Ox 36.6 C 96 16 100/63 98 11/13/16 07:19 11/13/16 07:19 11/13/16 07:19 11/13/16 07:19 11/13/16 07:19 ICD10 Worksheet Patient Problems: Problems Problem Status Onset Psychosis Acute
[2016-11-13] MEDS ORDERED: lamoTRIgine 25 MG TAB PO SCH (21:00)
== END 2016-11-13 14:18 | disposition home or self-care (01) | DRG 885 ==
LOC: BBEH 22:40
PROVIDERS: ADMIT Psychiatry & Neurology Behavioral Neurology & Neuropsychiatry; ATTEND Psychiatry & Neurology Psychiatry
DX: F29 Unspecified psychosis not due to a substance or known physiological condition (principal); F90.9 Attention-deficit hyperactivity disorder, unspecified type; F17.210 Nicotine dependence, cigarettes, uncomplicated; F14.10 Cocaine abuse, uncomplicated
CPT/HCPCS: 80305; 80307; G0480

== ENCOUNTER 2017-04-12 22:50 | Inpatient (IN) | payer MEDICAID ==
[2017-04-12] MEDS ORDERED: OLANZapine 5 MG TAB PO ONE (22:58)
--- NOTE | 2017-04-12 23:04 | EDPHY ---
H & P Source: Patient, EMS - Personal History Tetanus Vaccine Date: 2009 - Medical/Surgical History Hx Asthma: No Hx Chronic Respiratory Disease: No Hx Diabetes: No Hx Cardiac Disease: No Hx Renal Disease: No Hx Cirrhosis: No Hx Alcoholism: No Hx HIV/AIDS: No Hx Splenectomy or Spleen Trauma: No Other PMH: denies - Social History Smoking Status: Current every day smoker HPI/ROS: HPI CHIEF COMPLAINT: M1 hold, acute psychosis HISTORY OF PRESENT ILLNESS: This patient is a 37-year-old female significant past medical history for bipolar disorder and is supposed to be taking Lamictal but has been off Lamictal for 2 days. Presents to the emergency room by EMS for being acutely psychotic. Patient very paranoid. Having auditory visual hallucinations. She was brought to the mental health evaluation center at the [facility]. She was placed on M1 hold and brought to the emergency room. She denies drug use. She is wearing an eye patch over her left eye so that the demons cannot get into her left eye. Additionally she presented with a rather large E yellow plastic tarp that is covering her from head to toe she tells me she needs this tarp to protect her from the demons. Past Medical History: Bipolar disorder Past Surgical History: No recent surgery Social History: Denies daily use of drugs alcohol tobacco products. Family History: Noncontributory ROS REVIEW OF SYSTEMS: A comprehensive 10 point review of systems is otherwise negative aside from elements mentioned in the history of present illness. Exam Constitutional appears acutely psychotic, triage nursing summary reviewed, vital signs reviewed, awake/alert. Eyes normal conjunctivae and sclera, EOMI, PERRLA. HENT normal inspection, atraumatic, moist mucus membranes, no epistaxis, neck supple/ no meningismus, no raccoon eyes. Respiratory clear to auscultation bilaterally, normal breath sounds, no respiratory distress, no wheezing. Cardiovascular rate normal, regular rhythm, no murmur, no edema, distal pulses normal. Gastrointestinal soft, non-tender, no rebound, no guarding, normal bowel sounds, no distension, no pulsatile mass. Genitourinary no CVA tenderness. Musculoskeletal no midline vertebral tenderness, full range of motion, no calf swelling, no tenderness of extremities, no meningismus, good pulses, neurovascularly intact. Skin pink, warm, & dry, no rash, skin atraumatic. Neurologic awake, alert and oriented x 3, AAOx3, moves all 4 extremities equally, motor intact, sensory intact, CN II-XII intact, normal cerebellar, normal vision, normal speech. Psychiatric pressured speech, tangential thought, rambling, paranoid. Heme/Lymph/Immune no lymphadenopathy. Differential Diagnosis: Includes but is not limited to in a particular order acute psychosis, perfecto, drug intoxication, medication noncompliance Medical Decision Making: Plan for this patient blood draw for medical clearance she is on M1 hold. She will need mental health evaluation. 10 mg of Zyprexa have been ordered to help calm her. Help with her acute psychosis Re-evaluation: [id number]: No acute events overnight. Patient resting comfortably. Acutely psychotic. 10 mg p.o. Zyprexa was given. Patient needs mental health evaluation for acute psychosis. (Petey Whitmore) Constitutional: Initial Vital Signs Temperature (C) 37.1 C 04/12/17 22:50 Heart Rate 115 H 04/12/17 22:50 Respiratory Rate 18 04/12/17 22:50 Blood Pressure 131/87 H 04/12/17 22:50 O2 Sat (%) 95 04/12/17 22:50 O2 Delivery Mode Room Air Allergies/Adverse Reactions: aripiprazole [From Abilify] Allergy (Severe, Verified 04/13/17 23:24) Other-Enter Comments Home Medications: Medication Instructions Recorded Amphet Asp and D/Amphet [Adderall 20 mg PO BID@0800,1200 04/13/17 10 MG (*)] lamoTRIgine [LamICTAL 100 MG (*)] 200 mg PO HS 04/13/17 Medical Decision Making ED Course/Re-evaluation: I assumed care of this patient from Dr. Petey Whitmore at change of shift, 7: 00 a.m.. Patient remained stable throughout my shift. She was evaluated by EPS. They would like to admit her to an inpatient service, potentially a CSU. No further antipsychotics were required. Patient's care was assumed by Dr. Collins at 3:00 p.m.. We await placement. ( Marita Coats) The 11:00 p.m. care transferred to Dr. Petey Whitmore. We await psychiatric placement. (Juarez Collins) - Data Points Laboratory Results: Laboratory Results 04/12/17 23:15 04/12/17 23:15 Medications Given: Lamotrigine (Lamictal) 100 mg PO BID ROMANA Stop: 10/11/17 20:59 Last Admin: 04/14/17 20:45 Dose: 100 mg Lorazepam (Ativan) 1 - 2 mg PO Q4 PRN PRN Reason: ANXIETY Stop: 10/10/17 23:24 Last Admin: 04/14/17 20:48 Dose: 2 mg Nicotine (Nicoderm Cq) 21 mg TD DAILY ROMANA Stop: 10/11/17 15:44 Last Admin: 04/14/17 17:50 Dose: Not Given Olanzapine (Olanzapine) 10 mg PO HS ROMANA Stop: 10/11/17 20:59 Last Admin: 04/14/17 21:02 Dose: Not Given Discontinued Medications Lamotrigine (Lamictal) 200 mg PO EDNOW ONE Stop: 04/12/17 23:21 Last Admin: 04/13/17 00:18 Dose: 200 mg Lamotrigine (Lamictal) 100 mg PO DAILY ROMANA Stop: 10/11/17 08:59 Last Admin: 04/14/17 11:39 Dose: 100 mg Nicotine Polacrilex (Nicorette) 2 mg B Q1HR PRN PRN Reason: Nicotine Withdrawal Stop: 10/10/17 23:24 Last Admin: 04/14/17 14:51 Dose: 2 mg Olanzapine (Olanzapine) 10 mg PO ONCE ONE Stop: 04/12/17 22:59 Last Admin: 04/13/17 00:18 Dose: 10 mg Departure - Departure Disposition: [facility] IP Clinical Impression: Acute psychosis Condition: Fair
[2017-04-12] MEDS ORDERED: lamoTRIgine 100 MG TAB PO ONE (23:20)
[2017-04-12 23:28] LABS: % IMMATURE GRANULYOCYTES 0.5 % (0.0-1.1); ABSOLUTE IMMATURE GRANULOCYTES 0.07 10^3/uL (0.00-0.10); ADD DIFF? NO; ADD MORPH? NO; ADD SCAN? NO; ATYPICAL LYMPHOCYTE FLAG 0 (0-99); FRAGMENT RBC FLAG 0 (0-99); HEMATOCRIT 38.7 % (38.0-47.0); HEMOGLOBIN 13.4 g/dL (12.6-16.3); LEFT SHIFT FLG 0 (0-99); LIPEMIA HEMOLYSIS FLAG 90 (0-99); MEAN CELL HEMOGLOBIN 31.5 pg (27.9-34.1); MEAN CELL HEMOGLOBIN CONCENTR. 34.6 g/dL (32.4-36.7); MEAN CELL VOLUME 90.8 fL (81.5-99.8); MEAN PLATELET VOLUME 9.3 fL (8.7-11.7); PLATELET CLUMPS FLAG 0 (0-99); PLATELET COUNT 354 10^3/uL (150-400); RED BLOOD CELL COUNT 4.26 10^6/uL (4.18-5.33); RED CELL DISTRIBUTION WIDTH 12.3 % (11.5-15.2)
[2017-04-12 23:44] LABS: ANION GAP 13 mEq/L (8-16); CALCIUM 9.6 mg/dL (8.5-10.4); CARBON DIOXIDE 21 mEq/l (22-31); CHLORIDE 107 mEq/L (97-110); CREATININE 0.6 mg/dL (0.6-1.0); ETHANOL SERUM < 10 mg/dL (0-10); GLOMERULAR FILTRATION RATE > 60; GLUCOSE 92 mg/dL (70-100); POTASSIUM 3.4 mEq/L (3.5-5.2); SALICYLATE < 1.0 mg/dL (2.0-20.0); SODIUM 141 mEq/L (134-144)
[2017-04-13] MEDS ORDERED: MAG HYDROX/AL HYDROX/SIMETH 30 ML UDCUP PO PRN (23:25)
[2017-04-13] MEDS ORDERED: ACETAMINOPHEN 325 MG TAB PO PRN (23:25)
[2017-04-13] MEDS ORDERED: MAGNESIUM HYDROXIDE 30 ML UDCUP PO PRN (23:25)
[2017-04-13] MEDS ORDERED: OLANZapine 5 MG TAB PO PRN (23:26)
[2017-04-13] MEDS ORDERED: OLANZapine 10 MG TAB PO SCH (23:30)
[2017-04-13] MEDS: LORazepam 1 MG TAB PO PRN (23:59)
[2017-04-14 00:53] VITALS: RESP 14
[2017-04-14] MEDS: lamoTRIgine 100 MG TAB PO SCH ×3 (10:36→20:45)
--- NOTE | 2017-04-14 13:39 | BAPA ---
[f rep st] ADMISSION PSYCHIATRIC ASSESSMENT DATE OF SERVICE: 04/14/2017 CHIEF COMPLAINT: "The devil wants to get in my head." HISTORY OF PRESENT ILLNESS: This is a 37-year-old, white female with significant past medical histor y of bipolar disorder, supposed to be taking Lamictal but has been off it for at least 2 days. Adal davenport presents acutely psychotic to the ED via EMS. The patient was reported to be very paranoid and ex periencing auditory and visual hallucinations. [facility] an d placed on an M1 hold. She arrived wearing an eye patch on the left "to keep the demons out" and wa s also wearing a large yellow plastic tarp covering her from head to toe to "protect her from the dem ons." The patient's daughter has been taken care of by mother of child and a good friend of the matilde hernandez. The patient has behavior health providers including an outpatient psychiatric nurse practitioner and a therapist through [facility]. The patient's mother reports that the patient has been noncompliant with her prescribed medications as well as not going to her outpatient behavioral health appointments for quite some time, as her insurance with [employer] has lapsed. Patient is suppose dly an open [facility] client. She may have been transferred to [facility] after her most recent hospital stay in November of 2016. When MD met with the patient this morning, she was sitting up in bed, wearing a hospita l gown. She had eaten breakfast, had woken up late. She slept well the night before, 10 hours of sl eep. MD spent quite a bit of time going over the symptoms that the patient reportedly exhibited, inc luding barricading herself in her home, covering herself with a trash bag, wearing an eye patch over her eye. Patient denied all those things and said that what triggered her was "I had this really int ense emotional memory from about 10 years ago." Patient declined to state what the memory was. She said it was too uncomfortable to talk about. She said having memory made her depressed and upset ove r the past week. That one of the triggers for her is looking into her bathroom mirror so she covered up the mirrors in her bathroom with fabric, and she said that she also would not go into her bathroo m and when she did she would wear a fabric covering over her own face so she did not have to look int o the mirrors. She said that she asked a friend to come help take the mirrors down from her bathroom , but the friend said that he would be able to do it for a couple of days. So instead the patient sa id she went into her bathroom and "smashed the mirrors completely." When MD questioned the patient a bout the safety of doing that, she admitted that was unsafe but said that she picked up all of the pi eces and put them into trash bags. The patient admits that it was unsafe for her to be smashing glas s in the mirrors, but said she wore gloves and she said I had "face protection on." She picked up al l the shattered glass pieces and put them in the garage. I asked if her daughter was present in the house when she did this and she said no that her daughter has been staying at her mother's house for several days and the patient said that she did not want her daughter to be hurt. The patient refused any type of antipsychotic medications. She said that she had taken Abilify in the past but it "didn 't work for me." She also said that she has taken Depakote but that made her feel "numb." She says that she has been on lithium in the past but it made her feel like "a zombie." MD stressed that many of the patient's symptoms including the auditory and visual hallucinations, the feeling possessed by demons, and the feeling that she needed to cover herself to protect herself sounded paranoid and psy chotic, and that often times happens when people are under severe emotional stress, as the patient re ported that she has been over the last week and that she might benefit from being on a medication to specifically address those symptoms and the patient said no that she would not take any medications o ther than Lamictal and Adderall. PAST PSYCHIATRIC HISTORY: The patient is currently being followed by outpatient providers at [facility] in [place]. She said her therapist's name is Lucy and her prescribers names is Juliana Roldan but she does not know their last names, and she does not know whether Mounika Roldan is a psychiatr ist or a psychiatric nurse practitioner. She says that the only medications that she is prescribed i s Lamictal 200 mg. Although home medications reported from the emergency department indicated that s he is on Zyprexa 10 mg p.o. at bedtime, but patient denies that. The patient does have a history of psychiatric hospitalizations. The most recent time she was hospitalized was from October 26, 2016 unti l November 1404/2017 and at that time, patient was being treated by Dr. Olivia Garvin and she was admitted on 10/25/2016 because, according to Dr. Su's admission psych assessment dated 10/26/2016, "she p resented to the ER yesterday of her own accord after having had a very difficult 4 or [address] ates that she became excessively concerned about a relationship with a person who she states she is i n love with but she is unclear about the relationship status. This person is not someone she has act ually ever dated or possibly even directly communicated with. She states she got a friend request on Facebook from person she did know but that she assumed was the person who she has romantic feelings about who is contacting her in disguise in order to test her fidelity. She states that she began to read coded signals in messages that she felt the person was trying to convince her to create mix tape s. She stayed up all night for 2 days making several mix tapes. Along the way, she states she becam e paranoid believing that maybe the person was out to harm her. She describes in elaborate detail ty ing off and barricading the bathroom with scarves and ropes and other things in order to trap an enti ty that was seeking to harm her within the bathroom. She then took all the green items out of her ho me and hung them on a tree outside. She states that she realized she was not functioning normally an d that her 10-year-old daughter had to go and stay with her mother. Once she was in the ED she was g iven IM Zyprexa due to acute perfecto and paranoia. She believes herself clairvoyant and able to commun icate with spirits. She adamantly states that she does not want any further medications. She believ es they do not help her due to previous bad experiences as an adolescent. She states that she was di agnosed with bipolar disorder in her adolescents and had several medication trials but could not axel mber the names of any of the medications. She believes all she needs is rest and she can return to er normal functioning. According to her previous medical records, the patient was diagnosed when she was 15 years old with bipolar disorder and with attention deficit hyperactivity disorder. She says that she has taken Adderall off and on over the last 20 years and that this helps her. She says with out it "I can not get anything done and I'm a total wreck." She had no history of previous prior psy chiatric hospitalizations before November of this year and no prior suicide attempts. Her on medications drop in November were Adderall 20 mg p.o. twice daily and also says that she takes extra pills on a p.r.n. basis. ALLERGIES: Patient has no known medical allergies. CURRENT MEDICATIONS: The patient says that she is continuing to take Adderall 20 mg p.o. twice daily , as well as some extra pills occasionally when she feels like she needs them to "get stuff done", an d records from the [facility] indicate that she is also prescribe Zyprexa 10 mg p.o. at bedtime but the [facility] ent denies that she takes olanzapine. PAST MEDICAL HISTORY: Noncontributory per patient's report. SOCIAL HISTORY: The patient is and has an 11-year-old daughter. She and her daughter live in [place], [place]. 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 States that she is special izes in topical plant based products that she herself invented and distilled. She is estranged from her daughter's father. For the past 4 days prior to admission, the patient's daughter has reportedly been in the care of a family friend and part of the time with the patient's mother. She is currentl y staying with the patient's mom. The patient's immediate family includes her daughter, mother, an o lder sister who is a psychologist who lives in [facility]. The patient reported that she is close with her family but that they do not understand her. According to her mother, the patient's peer rivera pport is very limited. The patient has a high school degree. She is currently not working. 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 For leisure activities, the patient enjoys seeing psychics. SUBSTANCE USE HISTORY: According to the patient's mother, the patient has a history of a substance a buse beginning in adolescents including use of abuse of amphetamines, cocaine. When she was admitted to [facility] at the end of October, she admitted to using marijuana on a regular basis and says that she has been "a heavy marijuana user" since high school. She says that she drinks 2-3 times a month, occasionally to the point of intoxication. She denied using any o ther drugs. However her urine drug screen at that time, was positive for cocaine amphetamines and ma rijuana. Her current urine drug screen is negative for all drugs of abuse. FAMILY HISTORY: The patient denies any family history of substance use or of mental illness. LABS: On admission her white cell count was 15.1, her hemoglobin was 13.4, hematocrit 38.7, platelet count 354. Her absolute neutrophils were 9.8. Sodium was 141, potassium 3.4, chloride was 107, BUN was 5, creatinine was 0.6, glucose was 92, calcium 9.6. Her blood screen was negative. H er urine drug screen was positive for amphetamines, negative for all other drugs of abuse. Her salic ylate and acetaminophen levels were both undetected. Her ethyl alcohol level was less than 10. MENTAL STATUS EXAMINATION: This is a well-developed, female, dressed in a [employer] g own, sitting up in bed. She is pleasant and cooperative with the interview. She is alert and orient ed x3, but really lacks insight into why she is in the hospital and the severity of her symptoms prio r to admission. She denies most of the things that are reported by her mother and by the [facility] report. She says that her mood is "fine." Her affect is euthymic. Her thought process is disorganized and illogical. Her thought content is shows evidence of paranoia, delusions. She thinks that her home is possessed by RFID[employer] and she is wearing eye patches and had coverings of trash bags in order to pro tect herself from demons. She denies any thoughts or plans or intent to hurt herself or anyone else. Her intellect appears to be below average, based on educational and occupational history, fund of k nowledge and vocabulary. Her insight and judgment are both impaired. ASSESSMENT: 1. Schizoaffective disorder, bipolar type versus bipolar 1, most recent episode manic with psychotic features. 2. Attention deficit hyperactivity disorder by history. 3. Cannabis use disorder, severe. 4. Cocaine use disorder, moderate. 5. Alcohol use disorder, moderate. 6. Amphetamine use disorder, severe. 7. Psychosocial stressors include unemployed, financial difficulties, lack of peer/social support, c onflict with family, chronic severe mental illness, noncompliant with treatment. PLAN: 1. Admit the patient to behavioral health services inpatient unit on an M1 hold. 2. Monitor for safety. The patient is able to contract for safety, does not need to be on suicide p recautions. She is not endorsing any suicidal ideation or homicidal ideations at this time. 3. We will prescribe Lamictal 100 mg p.o. twice daily, which is the way the patient would like to ta ke it, that is her regular outpatient dose. 4. Patient is refusing all antipsychotic medications. After a long conversation with the MD who exp lained how antipsychotic medications can be helpful for the impaired decision making, the poor judgme nt, unsafe behaviors, the intrusive thoughts as well as some of the paranoid delusions and some of th e positive symptoms of hallucinations. Patient denies that most of those things have occurred even t dipti they are well documented in prior medical records as well as based upon the [facility] evaluation and her mother's report. The patient refuses to consider use of any antipsychotic medications during thi s hospitalization. 5. We will hold Adderall. Patient repeatedly requests to be put on the Adderall because she says th is is the only thing that helps her function. explained the potential adverse affects from prescr ibing Adderall including mood instability increased irritability as well as psychosis, and that given the risks would far outweigh any potential benefits the Adderall might have for her attention or foc us and there are other non stimulant medications that are less likely to exacerbate her psychotic sym ptoms as well as worsen her mood instability that may be considered, but that this would be a low shantel ority given the fact that she is in the hospital for paranoid delusions and psychosis which are the p rimary concern for treatment during this hospitalization. Patient said that she understood and reluc tantly agreed to holding the Adderall. 6. Engage the patient in individual, group, and milieu therapies. 7. Estimated length of stay is 5-7 days. The patient has been noncompliant with her outpatient mich elenita. Will seek to get her reconnected with her outpatient providers through [facility] if possible. /[id number]/MODL
[2017-04-14] MEDS: NICOTINE POLACRILEX 2 MG GUM B PRN ×3 (13:47→14:51)
--- NOTE | 2017-04-14 14:34 | BCON ---
[f rep st] BEHAVIORAL HEALTH CONSULTATION INTERNAL MEDICINE CONSULTATION. DATE OF CONSULTATION: 04/14/2017 REFERRING PHYSICIAN: Kalin Earl MD REASON FOR REFERRAL: Medical clearance for inpatient behavioral health stay. HISTORY OF PRESENT ILLNESS: This patient came to the [facility] emergency department having been noncompliant with psychiatric medications and acutely psychotic. She was brought in by Emergency Medical Services. Per the emergency department note, she was wearing an eye patch over the left eye so that demons could not get into her left eye, and she had a yellow plastic tarp covering her from head to toe to protect her from the demons. She was evaluated by the mental health team and admitted for further psychiatric care. She currently is without any acute complaints. PAST MEDICAL HISTORY: 1. Mental health issues with diagnosis of bipolar disorder. 2. History of stimulant abuse. PAST SURGICAL HISTORY: She has had a section with the of her daughter. MEDICATIONS: Prior to admission: 1. Aripiprazole 5 mg p.o. b.i.d. 2. Adderall 10 mg b.i.d. 3. Lamotrigine 25 mg b.i.d. ALLERGIES: There is an allergy listed to aripiprazole. SOCIAL HISTORY: She is and lives with her daughter. She is currently unemployed. She is a tobacco smoker. FAMILY HISTORY: Noncontributory. REVIEW OF SYSTEMS: She denies any symptoms referable to the thyroid including no heat or cold intolerance, no sweats, no tremor. She has had weight gain of approximately 4.5 kg since her prior hospitalization in October of this year, and otherwise a 10-point review of systems is negative. PHYSICAL EXAMINATION: VITAL SIGNS: Blood pressure is 129/86, heart rate is 95 , respiratory rate is 14, oxygen saturation is 95% on room air, temperature is 36.6 degrees centigrade. Her weight is 59 kg for a body mass index of 23.8. GENERAL: This is a well-nourished, well-developed woman, sitting cross-legged on the bed, buttering and eating a muffin, in a green smock, cooperative and in no acute distress. HEENT: Extraocular movements are intact. Pupils are equal , round, and reactive to light. Mucous membranes are moist. Dentition is in good condition. NECK: Supple. HEART: Regular rate and rhythm with no murmurs , rubs, or gallops. LUNGS: Clear to auscultation bilaterally. ABDOMEN: Soft , nontender, nondistended with normoactive bowel sounds. EXTREMITIES: There is no cyanosis, clubbing, or edema. NEUROLOGIC: She is alert. Orientation was not checked. She has pressured speech. Cranial nerves 2-12 are grossly intact. There is no focal weakness. Sensation is intact to light touch. LABORATORY STUDIES: Drawn in the emergency department: CBC revealed an elevated white count at 15.1. There was no left shift. She had an elevation of neutrophils, lymphocytes, and monocytes. Serum chemistry revealed a slightly low potassium at 3.4, a low carbon dioxide at 21, and a low BUN at 5. Otherwise, renal function and electrolytes were within normal limits. Beta-hCG was negative for . Toxicology screen in the serum was negative for salicylates, acetaminophen, or ethyl alcohol. Lamotrigine level is pending. Toxicology screen in the urine was non-negative for amphetamines, but otherwise negative for substances of abuse. ASSESSMENT/RECOMMENDATIONS: 1. Mental health issues pending further evaluation per Psychiatry and the mental health team. 2. Tobacco dependence syndrome. She was encouraged to quit smoking. 3. Weight gain possibly due to psychiatric medications. She has a healthy weight, and there is no concern at the moment regarding her weight. 4. Subclinical hyperthyroidism. She had a suppressed TSH on her prior visit of October 2016. She reports that she has not had any followup testing. I will order a TSH as well as a free T4 and free T3 added onto yesterday's labs to further evaluate. I see no medical contraindications to this patient's continued stay on the inpatient behavioral health unit or to any psychiatric medications or procedures. Thank you very much for including me in the care of this patient, and please do not hesitate to contact me or the hospitalist service should there be need for further medical evaluation. /[id number]/MODL MTDD
[2017-04-14] MEDS: NICOTINE 21 MG/24 HR PATCH TD SCH (17:50)
[2017-04-14] MEDS: LORazepam 1 MG TAB PO PRN (20:48)
[2017-04-14] MEDS ORDERED: OLANZapine 10 MG TAB PO SCH (21:00)
[2017-04-15] MEDS: NICOTINE 21 MG/24 HR PATCH TD SCH (09:03)
[2017-04-15] MEDS: lamoTRIgine 100 MG TAB PO SCH ×2 (09:04→20:24)
[2017-04-15] MEDS ORDERED: OLANZapine 10 MG TAB PO SCH (11:28)
--- NOTE | 2017-04-15 11:36 | SOAPPROG ---
SOAP Progress Note Assessment/Plan: Assessment: Bipolar Disorder I Manic Severe with psychotic features History of ADHD History of Cannabis and Stimulant Use Disorders Legal stressor - mother has temporary custody of daughter Patient appears manic with loud rambling speech and recent severe paranoia with property destruction. Patient has poor insight and doesn't want treatment in the hospital or take antipsychotic/mood-stabilizer medications. Patient reports excessive sedation from 10mg Olanzapine in ER over weekend. Plan: Provided education about diagnosis and treatment options Discussed risk of defects and miscarriage with psychiatric medications File short term certification for grave disability Continue Lamictal 100mg BID for history of bipolar depression Officer Olanzapine ODT 5mg QHS for paranoia and mood stabilization Discussed risk of weight gain, diabetes, tardive dyskinesia with Olanzapine Monitor impulse control, judgment, mood stability If compliant with olanzapine and having reduced symptoms, plan discharge home and care coordination with [facility] and mother Internal Medicine ordered follow up TFTs 04/15/17 11:36 Subjective: Patient reports feeling 'stressed.' Poor historian due to rambling speech. Reports she didn't sleep for several days prior to admission, was fearful that evil spirits were attacking her through mirrors, then destroyed mirrors in home. Reports excessive sedation from 10mg Olanzapine in ER and refused to take it last night. Denies violent or suicidal thoughts. 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 Reports mother is caring for daughter and has temporary guardianship. Reports not wanting to take any more psychiatric medications other than lamictal. No physical complaints. Objective: Vital Signs Temp Pulse Resp BP Pulse Ox 36.6 C 95 14 129/86 H 95 04/14/17 00:51 04/14/17 00:51 04/14/17 00:51 04/14/17 00:51 04/14/17 00:51 Alert WF, cooperative. Good eye contact. Speech loud, rapid at times, yelling at times. Mood "stressed" Affect irritable, angry, dysphoric. Thoughts tangetial, rambling. Denies SI or HI or AH. Reports paranoia about being attacked by evil spirits. Poor insight, questionable judgment. Memory intact to major events. - Time Spent With Patient Time Spent With Patient: 40 - Pending Discharge Pending Discharge Within 24 Hours: No Pending Discharge Within 48 Hours: No ICD10 Worksheet Patient Problems: Problems Problem Status Onset Acute psychosis Acute Psychosis Acute
[2017-04-15] MEDS ORDERED: OLANZapine DISINTEGR 5 MG TAB PO PRN (11:43)
--- NOTE | 2017-04-15 15:14 | PDMN ---
Medical Necessity Medical necessity: Spoke to Dr. Rogers [phone] [facility] Medicaid. Medicaid concerned patient has amphetamine induced mood disorder. Discussed that patient has a long history of bipolar disorder and ADHD, had insomnia, manic and psychotic symptoms prior to admit; slept excessively after Olanzapine 10mg in ER (for agitation), had UTOX + AMPH from Adderall; unclear if patient was abusing Adderall prior to admit but this AM appears manic with some but reduced paranoia. Discussed plan to try Olanzapine 5mg QHS; continue Lamictal; Adderall held. Medicaid will reportedly cover Saturday-Saturday04/17/17.
[2017-04-15] MEDS ORDERED: OLANZapine DISINTEGR 5 MG TAB PO SCH (21:00)
[2017-04-15] MEDS: LORazepam 1 MG TAB PO PRN (23:24)
[2017-04-16] MEDS: NICOTINE 21 MG/24 HR PATCH TD SCH (11:02)
[2017-04-16] MEDS: lamoTRIgine 100 MG TAB PO SCH ×2 (11:02→20:04)
--- NOTE | 2017-04-16 12:04 | SOAPPROG ---
SOAP Progress Note Assessment/Plan: Assessment: Bipolar Disorder I Manic Severe with mixed and psychotic features History of ADHD History of Cannabis and Stimulant Use Disorders Legal stressor - mother has temporary custody of daughter Financial Stressors Patient appears dysphoric and agitated this AM, reports oversedation from 5mg Olanzapine. Patient no longer appears paranoia but appears labile at times. Plan: Provided education about diagnosis and treatment options Patient is on a short term certification Continue Lamictal 100mg BID for history of bipolar depression Discontinue scheduled Olanzapine Start Seroquel 12.5mg PO QHS for bipolar disorder. Discussed risk of sedation, EPS, TD, and metabolic syndrome Monitor impulse control, judgment, mood stability PCP follow up for borderline TFTs [facility] liasion trying to reach outpatient psychiatrist; unable to get through to staff at [phone] 04/16/17 12:04 Subjective: "I am really upset" Patient reports she slept well but feels depressed and upset today. Reports worry about missing real estate classes, concern about finding money to pay a senior investment manager to help recover her dog, and worry about upcoming child custody treatment. Reports she is unwilling to discharge to [facility] and wants to return home. Denies suicidal or violent thoughts. No somatic complaints. Reports sleeping excessively and feeling oversedated by olanzapine. Objective: Vital Signs Temp Pulse Resp BP Pulse Ox 36.6 C 74 14 115/59 L 92 04/16/17 06:00 04/16/17 06:00 04/16/17 06:00 04/16/17 06:00 04/16/17 06:00 Dysphoric affect, tearful, labile at times. Ambulatory without tremors. Speech RRR, loud and rapid at times. Mood 'upset'. Thoughts organized, tangential at times. Denies SI or HI or AH. Denies paranoia. Fair insight. Questionable judgment. Staff report patient slept 9-10 hours last night. - Time Spent With Patient Time Spent With Patient: 15 min - Pending Discharge Pending Discharge Within 24 Hours: No Pending Discharge Within 48 Hours: No ICD10 Worksheet Patient Problems: Problems Problem Status Onset Bipolar disorder, current episode manic, severe with psychotic features Acute
[2017-04-16] MEDS ORDERED: QUEtiapine FUMARATE 25 MG TAB PO SCH (21:00)
[2017-04-16] MEDS: LORazepam 1 MG TAB PO PRN (22:14)
[2017-04-17] MEDS: NICOTINE 21 MG/24 HR PATCH TD SCH (08:42)
[2017-04-17] MEDS: lamoTRIgine 100 MG TAB PO SCH ×2 (08:42→19:04)
--- NOTE | 2017-04-17 08:57 | SOAPPROG ---
SOAP Progress Note Assessment/Plan: Assessment: Bipolar Disorder I Manic Severe with mixed and psychotic features Past History of ADHD Past History of Cannabis and Stimulant Use Disorders Probable slow metabolizer Legal stressor - mother has temporary custody of daughter Financial Stressors Patient no longer appears paranoid and appears calm but is briefly loud and tangential; missed group yesterday due to mood symptoms. Plan: Provided education about diagnosis and treatment options Recommended to patient that she go to [facility] for one week for medication monitoring Patient not agreeable to step down to [facility] at this time Patient is on a short term certification Continue Lamictal 100mg BID for history of bipolar depression Continue Seroquel 12.5mg PO QHS for bipolar disorder started 04/16/17 (didn't tolerate Olanzapine) Monitor impulse control, judgment, mood stability PCP follow up for borderline TFTs Discharge tomorrow if stable on unit today (calm, organized, able to attend groups) 04/17/17 08:57 Subjective: "I was really upset yesterday." Patient reports she was upset yesterday because mother wants to remain guardian for daughter due to patients mental illness. Reports wanting discharge due to fear that mother is unable to care for dog and dog may escape. Reports anxiety and sadness regarding upcoming court hearing regarding custody of daughter ( mother has temporary custody); reports father only assisting her financially as long as patients mother remains guardian for patients daughter. Reports concern about legal fees related to past court hearing regarding ownership of dog. Reports yesterday having mood swings and agitation in AM but felt calm in PM. Reports tolerating Seroquel 12.5mg last night. Admits to missing multiple [facility] therapy and one medical provider appointment in past months. Denies any somatic complaints this AM. Objective: Vital Signs Temp Pulse Resp BP Pulse Ox 36.6 C 74 14 115/59 L 92 04/16/17 06:00 04/16/17 06:00 04/16/17 06:00 04/16/17 06:00 04/16/17 06:00 Alert WF, cooperative and calm. Speech RRR, loud at times. Mood 'better' Affect reactive, euthymic. Thoughts organized but tangential and perseverative at times. Denies SI or HI. Denies AH or paranoia. Memory intake. Insight questionable. Judgment questionable. Staff report patient slept overnight. Yesterday was labile and dysphoric and tearful in AM and missed group but was calm in evening, eating well. - Time Spent With Patient Time Spent With Patient: 25 - Pending Discharge Pending Discharge Within 24 Hours: Yes Pending Discharge Date: 04/18/17 Pending Discharge Time: 11:00 ICD10 Worksheet Patient Problems: Problems Problem Status Onset Bipolar disorder, current episode manic, severe with psychotic features Acute
[2017-04-17] MEDS ORDERED: QUEtiapine FUMARATE 25 MG TAB PO SCH (14:10)
[2017-04-18 06:30] VITALS: BP 124/65; PULSE 86; TEMP 98; O2SAT 97
[2017-04-18] MEDS: lamoTRIgine 100 MG TAB PO SCH (08:25)
[2017-04-18] MEDS: NICOTINE 21 MG/24 HR PATCH TD SCH (08:25)
--- NOTE | 2017-04-18 17:03 | BDS ---
[f rep st] BEHAVIORAL HEALTH DISCHARGE SUMMARY ADMISSION DIAGNOSES: Acute psychosis, schizoaffective disorder, bipolar type, versus bipolar disorder type I, most recent episode manic with psychotic features. IDENTIFICATION: This is a 37-year-old, single, female who was in the medical emergency department on April 12, 2017. The patient was then transferred to the inpatient behavioral health unit on April 13, 2017. PAST HISTORY: The patient lives alone in her apartment. Her mother lives nearby. Her mother is the guardian for her 11-year-old daughter named Mulu. 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 She has a history of bipolar disorder and attention deficit hyperactivity disorder treated at [facility]. The patient has a prior psychiatric hospitalization here at [facility] in October,. The patient was reportedly taking Lamictal 200 mg a day, Adderall 20 mg twice a day from [facility]. REASON FOR ADMISSION: The patient was placed on a M1 hold for mixed manic and psychotic symptoms. The patient was agitated, having severe insomnia, disorganized behavior, and paranoia. Her mother took her to the walk in clinic and patient was taken to the ER by police. INITIAL EXAM: The patient, when she was admitted, reported that she had not slept in several nights, she had been noncompliant with her medications for 'a few days.' She had mood swings, irritability, agitation. She also had paranoia that there were evil spirits coming at her so she was covering herself with a tarp and glasses. She was also destroying mirrors in her house due to paranoia that mirrors were containing evil spirits. The patient received IM Zyprexa in the emergency department for perfecto, paranoia and agitation and then slept for about 10 hours initially on the unit. HOSPITAL COURSE: The patient was transferred to the inpatient unit on an M1 hold for grave disability due to manic and psychotic symptoms. The patient had been taken to the emergency room involuntarily for severe paranoia, disorganization, insomnia, agitation and disorganized thinking. We obtained collateral from the patient's mother as well as the patient's [facility] outpatient treatment team with the patient's permission. The patient apparently had been doing very well and had been working and maintaining her apartment; however, she had been noncompliant with outpatient appointments at [facility] , and then had severe deterioration with loud, rapid speech, disorganized thinking, paranoia and bizarre behavior leading to the hospitalization. On the unit, the patient did appear over-sedated by olanzapine 10 mg at bedtime which was initially ordered. The patient's Adderall was discontinued due to concern this was causing insomnia and paranoia. The patient slept quite a bit after the 10 mg Zyprexa so that dose was tapered and reduced. The patient continued to have excessive sedation from Zyprexa and so that was switched to low dose Seroquel to reduce the patient's manic symptoms. The patient was continued on her Lamictal. The patient did continue to have manic symptoms for several days on the unit. She also initially had paranoia for the first 2-3 days on the unit. Her manic symptoms included rapid, pressured speech, tangential thoughts, impulsive/intrusive behaviors and severe agitation. The patient had paranoia about evil spirits lasting 2-3 days on the unit that remitted. The patient did have to receive p.r.n. Ativan for sleep and agitation while on the unit. The patient tolerated the Lamictal that she had previously been taking. She reported that she had only stopped taking the Lamictal 2 days prior to the hospitalization. The patient did not have any signs of rash. The patient was warned about the risk of Michaud-Almas syndrome with Lamictal. The patient reported that she had previously been prescribed Zyprexa and Abilify in the past. She reported possible rigidity or difficulty speaking with Abilify so this was listed as an allergy. The patient had gradual improvement, she became less impulsive, less agitated, more appropriate and less labile on the unit and less loud. She had gradual improvement in her judgment and insight into her mental illness. Prior to discharge she was consistently denying thoughts to hurt herself or others and denying paranoia about evil spirits for several days prior to discharge. The patient was also calm, appropriate and organized in groups and displayed improved insight regarding her symptoms and need for continued medication compliance and follow up care. On the day of discharge, the patient's mother, who is the guardian for the patient's daughter, came in to review the discharge plan. The patient was calm, appropriate, organized, able to explain her diagnosis, signs and symptoms of bipolar disorder as well as her medication regimen and her followup plan appropriately. During the family meeting, the patient's mother was concerned that the patient would be non -compliant with medication and follow up treatment. The patient declined referral to residential care at [facility] despite recommendation by the [facility] team, [facility] team, and her mother. However, she appeared calm and organized and did not appear gravely disabled for further inpatient treatment. She was consistently agreeable to continue medications and follow up at [facility] after discharge. On the unit, the patient had a primary care evaluation by the hospitalist, Dr. Osborn, on April 14. The patient did not have any significant medical problems on the unit. Laboratory values included borderline elevated white blood cell count of 15.1, hemoglobin 13.4, platelet count 354. Sodium 141, potassium 3.4, creatinine 0.6, glucose 92, calcium 9.6. TSH 0.9. Free T4 was 2.0. Free T3 was borderline elevated at 5.5. The patient was counseled to have a primary care provider recheck her thyroid function tests in one month. Serum beta HCG was negative. Urine tox screen was positive for amphetamine only but this was likely due to her Adderall prescription. The patient was counseled to discontinue the Adderall during the course of hospitalization. The patient's outpatient psychiatrist, Dr. Maier, was notified of the patient's admission. [facility] offered a bed at [facility], which is a step-down unit; the patient was unwilling to go to this unit to continue to have medication monitoring as she reported that she wanted to be near her dog. The patient was concerned that the patient's mother was unable to care for the dog because the mother had apparently lost one of her dogs in the past. CONDITION ON DISCHARGE: The patient is an alert, white female in no acute distress. She is pleasant and cooperative. Her speech is regular rate and rhythm. Her thoughts are organized. She denies any thoughts to hurt herself or others. She denies auditory hallucinations or paranoia. Her memory is good. Her insight is good. Her judgment is appropriate. DISCHARGE DIAGNOSES: AXIS I: Bipolar disorder type 1 most recent episode manic with psychotic features, history of attention deficit hyperactivity disorder. DISPOSITION: The patient will be leaving on her own. She reports she will go to [facility] to get her prescriptions filled. FOLLOWUP: The patient has an appointment at [facility] with a therapist and a psychiatrist within 1 week. LEGAL STATUS: The patient was admitted on the M1 hold which was converted to short term certification. This will be terminated at discharge so the patient will be on voluntary status when she leaves. DISCHARGE MEDICATIONS: Lamictal 100 mg by mouth twice a day and Seroquel 25 mg by mouth at bedtime. INFORMED CONSENT: The patient was warned about the risks of defects or miscarriages with psychiatric medications. She was also warned about the risks of tardive dyskinesia, sedation, weight gain, diabetes and hyperlipidemia with Seroquel. /[id number]/MODL MTDD
== END 2017-04-18 13:25 | disposition home or self-care (01) | DRG 885 ==
LOC: EDUNIT# → BBEH 04-13 23:10
PROVIDERS: ADMIT Psychiatry & Neurology Psychiatry; ATTEND Psychiatry & Neurology Psychiatry
DX: F25.0 Schizoaffective disorder, bipolar type (principal); F31.2 Bipolar disorder, current episode manic severe with psychotic features; F90.9 Attention-deficit hyperactivity disorder, unspecified type; F51.05 Insomnia due to other mental disorder; F17.200 Nicotine dependence, unspecified, uncomplicated
CPT/HCPCS: 80175-90; 80305; 84481-90; G0480

== ENCOUNTER 2018-11-23 17:42 | Emergency (ER) | payer MEDICAID ==
[2018-11-23] MEDS ORDERED: KETOROLAC 15 MG/1 ML SDV IVP ONE (18:17)
[2018-11-23] MEDS ORDERED: NS 1,000 ML IV ONE (18:17)
--- NOTE | 2018-11-23 18:18 | EDPHY ---
H & P Stated Complaint: headache, cough, nausea since saturday Time Seen by Provider: 11/23/18 17:47 HPI/ROS: Chief Complaint: Headache, nausea, cough HPI: 38-year-old woman has had URI symptoms for the last 5 days. Patient started up by having congestion and cough and a fever 5 days ago. Fevers since resolved. Cough has been nonproductive. She did go to Urgent Care was given a prescription for hydrocodone syrup for her cough. This has helped her cough but is made her headache worse. Is not the worst headache of her life. It was not sudden onset. Is about a 6/10. She is complaining of some tightness in her neck muscles but is able to look up and down without any difficulty. Headache feels like she is wearing a hat that is too tight. She did take 1 200 mg ibuprofen at 12:00 p.m. Today without any significant relief. She did vomit twice this morning. No shortness of breath. No chest pain. No abdominal pain. No diarrhea or constipation. ROS: 10 systems were reviewed and were negative except those elements noted in the HPI. PMH: Bipolar disorder Social History: No smoking, no alcohol, no recreational drug use Family History: non-contributory Physical Exam: Gen: Awake, Alert, No Distress HEENT: Nose: no rhinorrhea Eyes: PERRLA, EOMI Mouth: Moist mucosa Neck: Supple, no JVD common absolutely no meningismus Chest: nontender, mild diffuse expiratory wheeze Heart: S1, S2 normal, no murmur Abd: Soft, non-tender, no guarding Back: no CVA tenderness, no midline tenderness Ext: no edema, non-tender Skin: no rash Neuro: CN II-XII intact, Sensation grossly intact, Strength 5/5 in bilateral upper and lower extremities - Personal History LMP (Females 10-55): 22-28 Days Ago Tetanus Vaccine Date: 2009 - Medical/Surgical History Hx Asthma: No Hx Chronic Respiratory Disease: No Hx Diabetes: No Hx Cardiac Disease: No Hx Renal Disease: No Hx Cirrhosis: No Hx Alcoholism: No Hx HIV/AIDS: No Hx Splenectomy or Spleen Trauma: No Other PMH: bipolar, ADHD, hx - Social History Smoking Status: Current every day smoker Constitutional: Initial Vital Signs Temperature (C) 36.5 C 11/23/18 17:50 Heart Rate 85 11/23/18 17:50 Respiratory Rate 18 11/23/18 17:50 Blood Pressure 103/66 11/23/18 17:50 O2 Sat (%) 96 11/23/18 17:50 O2 Delivery Mode Room Air Allergies/Adverse Reactions: aripiprazole [From Abilify] Allergy (Severe, Verified 11/23/18 17:49) Other-Enter Comments Home Medications: Medication Instructions Recorded QUEtiapine FUMARATE [Seroquel 25 25 mg PO HS 30 Days #30 tab 04/18/17 mg (*)] lamoTRIgine [LamICTAL 100 MG (*)] 100 mg PO BID 30 Days #60 tab 04/18/17 Adderall 10 MG (*) 11/23/18 Medical Decision Making ED Course/Re-evaluation: Patient's cough is improved after albuterol neb. Lungs are clear. Will discharge with an albuterol MDI with spacer. Her headache is resolved after IV Toradol and fluids. He has no meningismus. She has no symptoms concerning for meningitis at this time. Will discharge with appropriate medications of a Tylenol and Motrin. Albuterol MDI with spacer, follow up with primary care physician in 2-3 days for further evaluation. - Data Points Laboratory Results: 11/23/18 18:25 POC Sodium 141 mEq/L mEq/L (135-145) POC Potassium 3.5 mEq/L mEq/L (3.3-5.0) POC Chloride 106.0 mEq/L mEq/L (97-110) POC Total CO2 26 mEq/L mEq/L (22-31) POC BUN 10 mg/dL mg/dL (7-23) POC Creatinine 0.4 mg/dL L mg/dL (0.6-1.0) POC Glucose 105 mg/dL H mg/dL (70-100) POC Calcium 9.0 mg/dL mg/dL (8.5-10.4) Medications Given: Discontinued Medications Albuterol (Proventil Neb) 3 ml IH EDNOW ONE Stop: 11/23/18 18:47 Last Admin: 11/23/18 18:48 Dose: 3 ml Sodium Chloride (Ns) 1,000 mls @ 0 mls/hr IV ONCE ONE; Wide Open PRN Reason: Protocol Stop: 11/23/18 18:18 Last Admin: 11/23/18 18:27 Dose: 1,000 mls Ketorolac Tromethamine (Toradol) 15 mg IVP EDNOW ONE Stop: 11/23/18 18:18 Last Admin: 11/23/18 18:27 Dose: 15 mg Point of Care Test Results: CBC CBC Collection Date 11/23/18 CBC Collection Time 18:20 WBC 7.59 RBC 4.33 HGB 13.5 HCT 39.5 PLT 298 Neut # 3.80 Neut 50.0 LYMPH # 3.02 LYMPH 39.8 MCV 91.2 Chemistry 11/23/18 18:25 POC Sodium 141 mEq/L mEq/L (135-145) POC Potassium 3.5 mEq/L mEq/L (3.3-5.0) POC Chloride 106.0 mEq/L mEq/L (97-110) POC Total CO2 26 mEq/L mEq/L (22-31) POC BUN 10 mg/dL mg/dL (7-23) POC Creatinine 0.4 mg/dL L mg/dL (0.6-1.0) POC Glucose 105 mg/dL H mg/dL (70-100) POC Calcium 9.0 mg/dL mg/dL (8.5-10.4) Departure - Departure Disposition: Home, Routine, Self-Care Clinical Impression: Bronchitis Condition: Good Instructions: Acute Bronchitis (ED), Wheezing (ED), Albuterol (By breathing) Additional Instructions: You may use the albuterol inhaler, 2 puffs with spacer every 4 hr as needed for cough or wheeze. Take ibuprofen, 600 mg every 8 hr. You may alternate with acetaminophen, 1000 mg every 8 hr. Please stop taking the cough suppressant. Follow up with primary care physician in 2-3 days if symptoms are not improving. Referrals: NONE *PRIMARY CARE P,. [Primary Care Provider] - As per Instructions
[2018-11-23] MEDS ORDERED: ALBUTEROL 3 ML DEYVIAL IH ONE (18:46)
[2018-11-23] MEDS ORDERED: ALBUTEROL INH PREPACK MDI TAKEHOME ONE (19:09)
[2018-11-23 19:57] VITALS: BP 121/79
== END 2018-11-23 19:20 | disposition home or self-care (01) ==
LOC: CED 17:42
DX: J40 Bronchitis, not specified as acute or chronic (principal); E86.9 Volume depletion, unspecified; F17.200 Nicotine dependence, unspecified, uncomplicated; F31.9 Bipolar disorder, unspecified; F90.9 Attention-deficit hyperactivity disorder, unspecified type
CPT/HCPCS: 80048-ER; 85025-QW-ER; 96361-ER; 96374-ER; 99284-ER; J1885; J7613

== ENCOUNTER 2018-11-28 14:49 | Emergency (ER) | payer MEDICAID ==
[2018-11-28] MEDS ORDERED: IPRATROPIUM/ALBUTEROL 3 ML DEYVIAL IH ONE (15:47)
--- NOTE | 2018-11-28 16:35 | EDPHY ---
H & P Stated Complaint: cough for 1 week,congestion Time Seen by Provider: 11/28/18 15:20 HPI/ROS: CHIEF COMPLAINT: Cough HISTORY OF PRESENT ILLNESS: This is a 38-year-old female who presents with cough, nasal congestion, present for the past week. She was initially evaluated at an urgent care and told that she had a viral illness. She was seen here few days ago with bronchitis. She is concerned because she continues with a dry cough, subjective fever, myalgias. She had a global headache that has now resolved. She is using the albuterol metered dose inhaler that was prescribed once daily. She does not feel short of breath. She is not having chest pain. REVIEW OF SYSTEMS: A ten system review of systems was performed and is negative with the exception of the items mentioned in the HPI. Past medical history: 1. Bipolar 2. Attention deficit hyperactivity disorder 3. Thyroid cyst Past surgical history: section Social history: General Appearance: Alert. Vital signs reviewed. Initial heart rate 104. Oxygen saturation 97% on room air. Eyes: Pupils equal and round, no conjunctival injection, no discharge. Anicteric. ENT, Mouth: Mucous membranes are moist, no oropharyngeal erythema or edema. No posterior pharynx drainage. Tympanic membranes normal. Neck: No lymphadenopathy, supple. Respiratory: Lungs are clear to auscultation; no wheezes, rales, or rhonchi. Cardiovascular: Regular rate and rhythm; no murmur, rub, or gallop. Gastrointestinal: Abdomen is soft and nontender, no masses or organomegaly, bowel sounds normal. Skin: Warm and dry, no rashes on exposed skin, normal color. Back: Nontender to palpation over the thoracolumbar spine. No CVAT. Extremities: No lower extremity edema, no calf tenderness or swelling. Neurological: Alert and oriented. Moving all four extremities easily and equally. Psychiatric: Normal affect. - Personal History LMP (Females 10-55): 1-7 Days Ago Current Tetanus Diphtheria and Acellular Pertussis (TDAP): Yes Tetanus Vaccine Date: 2009 - Medical/Surgical History Hx Asthma: No Hx Chronic Respiratory Disease: No Hx Diabetes: No Hx Cardiac Disease: No Hx Renal Disease: No Hx Cirrhosis: No Hx Alcoholism: No Hx HIV/AIDS: No Hx Splenectomy or Spleen Trauma: No Other PMH: bipolar, ADHD, hx - Social History Smoking Status: Current every day smoker Constitutional: Initial Vital Signs Temperature (C) 36.8 C 11/28/18 15:07 Heart Rate 104 H 11/28/18 15:07 Respiratory Rate 18 11/28/18 15:07 Blood Pressure 116/69 11/28/18 15:07 O2 Sat (%) 97 11/28/18 15:07 O2 Delivery Mode Room Air Allergies/Adverse Reactions: aripiprazole [From [employer]ili[employer]] Allergy (Severe, Verified 11/28/18 15:06) Other-Enter Comments Home Medications: Medication Instructions Recorded lamoTRIgine [LamICTAL 100 MG (*)] 100 mg PO BID 30 Days #60 tab 04/18/17 Adderall 10 MG (*) 11/23/18 ALBUTEROL SULFATE 11/28/18 Albuterol [Proventil Inhaler HFA 1 - 2 puffs IH Q4 #1 mdi 11/28/18 (*)] HYDROcodone/HOMATROPINE HYCODA 1 tsp PO Q4-6PRN PRN #120 ml 11/28/18 [Hycodan Syrup (*)] Medical Decision Making ED Course/Re-evaluation: 38-year-old immunocompetent female concerned about cough that has persisted for the past week. She is particularly concerned about the possibility of pneumonia. A chest x-ray was performed and shows no evidence of infiltrates. The chest x-ray is suggestive of bronchitis, which was her previous diagnosis. She is advised to increase the use of the albuterol meter dose inhaler. Symptomatic treatment for cough was reviewed. She had been told not to use the cough syrup that had been given at Urgent Care, however, I told her that was fine for her to use this, especially at night if she is having trouble sleeping. She was given a prescription for Hycodan, she is low on the cough syrup that was provided earlier. Danger signs were reviewed with her. She has not febrile or toxic appearing. As above, nothing to suggest pneumonia. Antibiotics not warranted for this likely viral process. I do not suspect influenza. Cough has been present for the past week I do not think that this is pertussis. - Data Points Medications Given: Discontinued Medications Albuterol/Ipratropium (Duoneb) 3 ml IH EDNOW ONE Stop: 11/28/18 15:48 Last Admin: 11/28/18 15:50 Dose: 3 ml Departure - Departure Disposition: Home, Routine, Self-Care Clinical Impression: Acute bronchitis Qualifiers: Bronchitis organism: unspecified organism Qualified Code(s): J20.9 - Acute bronchitis, unspecified Condition: Good Instructions: Acute Bronchitis (ED) Additional Instructions: Continue with the cough medicine if you are having trouble sleeping at night. Use the albuterol inhaler with a spacer 4 times daily. This will gradually resolve, but might take another week or so. Referrals: [facility],. [Clinic] - As per Instructions Pura Corrigan MD [Medical Doctor] - As per Instructions Prescriptions: Albuterol [Proventil Inhaler HFA (*)] 1 - 2 puffs IH Q4 #1 mdi HYDROcodone/HOMATROPINE HYCODA [Hycodan Syrup (*)] 1 tsp PO Q4-6PRN PRN #120 ml PRN Reason: Cough, Severe
[2018-11-28 17:03] VITALS: BP 122/78
== END 2018-11-28 17:01 | disposition home or self-care (01) ==
LOC: CED 14:49
DX: J20.9 Acute bronchitis, unspecified (principal)
CPT/HCPCS: 71046-PO; 99284-ER